=== PATIENT | female | born 1935 | race Caucasian/White ===

== ENCOUNTER 2017-07-06 16:25 | Outpatient (CLI) | payer MEDICARE ==
[2017-07-06 17:05] LABS: Hemoglobin 12.3 g/dL (12.0-16.0); Mean Corpuscular HGB CONC 34.9 g/dL (32.0-36.0); Mean Corpuscular Hemoglobin 34.3 pg (27.0-31.0); Mean Corpuscular Volume 98.3 fl (81.0-99.0); Mean Platelet Volume 7.1 fL (7.4-10.4); Platelet Count 209 thou/uL (130-400); RBC Distribution Width 12.3 % (11.5-14.5); White Blood Cell (WBC) Count 9.1 thou/uL (4.8-10.8)
[2017-07-06 17:18] LABS: INR-International Normal Ratio 1.1; PTT 30.1 SEC (22.9-36.1); Prothrombin Time 14.1 SEC (12.0-14.7)
[2017-07-06 17:32] LABS: ALT (SGPT) 13 U/L (8-55); AST (SGOT) 25 U/L (5-34); Albumin 3.5 g/dL (3.4-4.8); Alkaline Phosphatase 218 U/L (40-150); Anion Gap 13 mmol/L (10-20); BUN (Urea Nitrogen) 33 mg/dL (9.8-20.1); Bilirubin, Total 0.3 mg/dL (0.2-1.2); Calc. Creatinine Clearance 0 mL/min (70-130); Calcium 9.5 mg/dL (7.8-10.44); Carbon Dioxide 26 mmol/L (23-31); Chloride 101 mmol/L (98-107); Estimated GFR-MDRD 36; Globulin 4.9 g/dL (2.4-3.5); Glucose 129 mg/dL (83-110); Potassium 4.2 mmol/L (3.5-5.1); Protein, Total 8.4 g/dL (6.0-8.3); Sodium 136 mmol/L (136-145)
== END 2017-07-06 16:26 | disposition home or self-care (01) ==
LOC: LABBT 16:25
PROVIDERS: ATTEND Internal Medicine Cardiovascular Disease
DX: Z01.812 Encounter for preprocedural laboratory examination (principal); I35.0 Nonrheumatic aortic (valve) stenosis
CPT/HCPCS: 80053; 85027; 85610; 85730

== ENCOUNTER 2017-07-11 06:55 | Observation (INO) | payer MEDICARE ==
[2017-07-11] MEDS ORDERED: Diazepam 5 MG TAB ONE (07:11)
[2017-07-11] MEDS ORDERED: Lidocaine 1% (PF) 30 ML VIAL ONE (08:34)
[2017-07-11] MEDS ORDERED: Fentanyl 100 MCG/2 ML VIAL ONE ×3 (09:30→13:58)
[2017-07-11] MEDS ORDERED: Midazolam HCl 2 mg/2 ml Vial ONE ×3 (09:46→11:17)
[2017-07-11] MEDS ORDERED: Heparin 10,000 UNITS/1 ML VIAL ONE (09:57)
[2017-07-11] MEDS ORDERED: Nitroglycerin 100MG/250ML BOT 250 ML ONE (10:00)
[2017-07-11] MEDS ORDERED: Fentanyl 100 MCG/2 ML VIAL SLOW IVP PRN ×2 (11:30→11:31)
[2017-07-11] MEDS ORDERED: traMADol HCl 50 MG TAB PO PRN (11:32)
[2017-07-11] MEDS ORDERED: Acetaminophen/Codeine 30-300mg Tablet PO PRN (11:33)
[2017-07-11] MEDS ORDERED: PROVENTIL INHALER 6.7 G (200 INHALATIONS) INH PRN (11:34)
[2017-07-11] MEDS ORDERED: Midazolam HCl 2 mg/2 ml Vial IVP PRN (11:39)
[2017-07-11] MEDS ORDERED: TICAGRELOR 90 MG TABLET PO SCH (11:40)
[2017-07-11] MEDS ORDERED: Iopamidol 370 76% 50 ML VIAL FS ONE (13:23)
[2017-07-11] MEDS ORDERED: Iopamidol 370 76% 100 ML VIAL ONE (13:23)
[2017-07-11] MEDS: Sodium Chloride 0.9% 1,000 ML IV SCH (18:10)
[2017-07-11 19:34] VITALS: BMI 31.1
[2017-07-11] MEDS ORDERED: hydrOXYzine 25 MG TAB PO SCH (21:00)
[2017-07-11] MEDS: TICAGRELOR 90 MG TABLET PO SCH (21:14)
[2017-07-11] MEDS: ALPRAZolam 0.25 MG TAB PO SCH (21:14)
[2017-07-12] MEDS: Sodium Chloride 0.9% 1,000 ML IV SCH (06:45)
[2017-07-12 06:59] LABS: #Basophils 0.1 thou/uL (0.0-0.2); #Eosinphils 0.4 thou/uL (0.0-0.7); #Lymphocytes 1.9 thou/uL (1.20-3.40); #Monocytes 0.5 thou/uL (0.11-0.59); #Neutrophils 3.1 thou/uL (1.40-6.50); %Basophils 1.1 % (0.0-1.0); %Eosinophils 6.1 % (0.0-10.0); %Lymphocytes 32.7 % (21.0-51.0); %Monocytes 7.7 % (0.0-10.0); %Neutrophils 52.4 % (42.0-75.0); Hemoglobin 10.5 g/dL (12.0-16.0); Mean Corpuscular HGB CONC 34.1 g/dL (32.0-36.0); Mean Corpuscular Hemoglobin 34.6 pg (27.0-31.0); Mean Platelet Volume 7.2 fL (7.4-10.4); Platelet Count 153 thou/uL (130-400); RBC Distribution Width 12.4 % (11.5-14.5); Red Blood Cell (RBC) Count 3.05 mill/uL (4.20-5.40); White Blood Cell (WBC) Count 5.8 thou/uL (4.8-10.8)
[2017-07-12 07:16] LABS: ALT (SGPT) 36 U/L (8-55); AST (SGOT) 73 U/L (5-34); Albumin 2.7 g/dL (3.4-4.8); Alkaline Phosphatase 256 U/L (40-150); Anion Gap 12 mmol/L (10-20); BUN (Urea Nitrogen) 24 mg/dL (9.8-20.1); Calc. Creatinine Clearance 57 mL/min (70-130); Calcium 8.7 mg/dL (7.8-10.44); Carbon Dioxide 22 mmol/L (23-31); Chloride 107 mmol/L (98-107); Estimated GFR-MDRD 53; Globulin 3.6 g/dL (2.4-3.5); Glucose 106 mg/dL (83-110); Potassium 4.1 mmol/L (3.5-5.1); Protein, Total 6.3 g/dL (6.0-8.3); Sodium 137 mmol/L (136-145)
[2017-07-12] MEDS ORDERED: Spironolactone 25 MG TAB PO SCH (08:00)
[2017-07-12] MEDS ORDERED: Citalopram 20 MG TAB PO SCH (09:00)
[2017-07-12] MEDS ORDERED: Furosemide 100 MG/10 ML VIAL SLOW IVP SCH (09:15)
[2017-07-12] MEDS: ALPRAZolam 0.25 MG TAB PO SCH (09:15)
[2017-07-12] MEDS: TICAGRELOR 90 MG TABLET PO SCH (09:15)
[2017-07-12] MEDS ORDERED: Potassium Chloride 20 MEQ TAB PO SCH (09:15)
[2017-07-12 12:12] VITALS: BP 138/58; TEMP 98.5
--- NOTE | 2017-07-12 13:18 | ULT ---
ULTRASOUND RIGHT GROIN: Indication: Post femoral artery puncture. Assess for pseudoaneurysm. FINDINGS: Common femoral artery and common femoral vein are identified and appear unremarkable. Greater sapheno us vein is identified and appears unremarkable. No evidence of pseudoaneurysm or hematoma. IMPRESSION: Unremarkable exam. POS: [facility]
--- NOTE | 2017-07-12 19:34 | DIS ---
DATE OF ADMISSION: 07/11/2017 DATE OF DISCHARGE: 07/12/2017 OBSERVATION DISCHARGE FINAL DIAGNOSES: 1. Aortic stenosis, severe. 2. Coronary artery disease, widely patent stent in her LAD, severe stenosis in the circumflex succes sfully stented with a drug-coated stent. 3. Severe edema related to aortic stenosis. DISCHARGE MEDICATIONS: Medications at the time of discharge are the same as those on admission with the addition of Brilinta 90 mg twice a day. Please see admission note for full details. Briefly, Ms. Sanchez is a delightful elderly woman who came to the hospital for pre TAVR evaluation. Loren hunt had a stent in her LAD, it is widely patent. The 90% lesion in the circumflex was treated with a 3 .5 x 24 drug-coated stent. The right coronary, no stenosis. The patient was kept overnight in view of her severe aortic stenosis and diastolic heart failure secondary to aortic stenosis with edema. T his morning, she complained of some groin pain. We did an ultrasound of her leg. The groin is aj l. She also has diffuse pain in her knees and throughout her legs chronically. The patient was give n some Lasix here to diurese her before going home. Otherwise, she will resume her medicines same as before. We will arrange to have her sent to [place] for consideration for transcutaneous aortic genaro ve replacement. She has a very high gradient. I think she would be a good candidate.
--- NOTE | 2017-07-12 20:20 | EKG ---
Test Reason : POST STENT X1 LAD Blood Pressure : / mmHG Vent. Rate : 088 BPM Atrial Rate : 088 BPM P-R Int : 162 ms QRS Dur : 142 ms QT Int : 410 ms P-R-T Axes : 068 077 024 degrees QTc Int : 496 ms Normal sinus rhythm Right bundle branch block Abnormal ECG When compared with ECG of 28-OCT-2016 01:03, No significant change was found Confirmed by CHELSEA ARROYO (2) on 07/12/2017 8:19:49 PM Referred By: ROSITA Confirmed By:CHLESEA ARROYO
--- NOTE | 2017-07-12 20:26 | EKG ---
Test Reason : Blood Pressure : / mmHG Vent. Rate : 074 BPM Atrial Rate : 074 BPM P-R Int : 162 ms QRS Dur : 138 ms QT Int : 416 ms P-R-T Axes : 060 024 017 degrees QTc Int : 461 ms Normal sinus rhythm Right bundle branch block Abnormal ECG When compared with ECG of 11-JUL-2017 11:24, (Unconfirmed) No significant change was found Confirmed by CHELSEA ARROYO (2) on 07/12/2017 8:25:53 PM Referred By: ROSITA Confirmed By:CHELSEA ARROYO
== END 2017-07-12 15:28 | disposition home or self-care (01) ==
LOC: CCL 06:55 → 2SW 16:07
PROVIDERS: ADMIT Internal Medicine Cardiovascular Disease; ATTEND Internal Medicine Cardiovascular Disease
DX: I35.0 Nonrheumatic aortic (valve) stenosis (principal); I25.10 Atherosclerotic heart disease of native coronary artery without angina pectoris; E78.00 Pure hypercholesterolemia, unspecified; I50.30 Unspecified diastolic (congestive) heart failure; E03.9 Hypothyroidism, unspecified; E66.9 Obesity, unspecified; Z95.5 Presence of coronary angioplasty implant and graft; Z68.31 Body mass index [BMI] 31.0-31.9, adult; Z79.899 Other long term (current) drug therapy
CPT/HCPCS: 76942; 80053; 85025; 85347 ×3; 93005 ×2; 93454; 93798; 93926; 96361 ×2; 96374; 96375 ×2; 97139; C1769 ×2; C1874; C1887; C9600; G0378; 36415; 92928; 93010; 99152; 99153; J1644; J1940; J2001; J2250; J3010

== ENCOUNTER 2017-08-01 13:23 | Outpatient (CLI) | payer MEDICARE | END 2017-08-01 13:24 | disposition home or self-care (01) | LOC: CP 13:23 | PROVIDERS: ATTEND Internal Medicine Cardiovascular Disease | DX: I25.10 Atherosclerotic heart disease of native coronary artery without angina pectoris (principal); I35.0 Nonrheumatic aortic (valve) stenosis | CPT/HCPCS: 94727 ==

== ENCOUNTER 2017-08-24 13:27 | Outpatient (CLI) | payer MEDICARE | END 2017-08-24 13:28 | disposition home or self-care (01) | LOC: CP 13:27 | PROVIDERS: ATTEND Internal Medicine Cardiovascular Disease | DX: I25.10 Atherosclerotic heart disease of native coronary artery without angina pectoris (principal); I35.0 Nonrheumatic aortic (valve) stenosis | CPT/HCPCS: 94010; 94727; 94729 ==

== ENCOUNTER 2017-10-06 10:09 | Emergency (ER) | payer MEDICARE ==
[2017-10-06 10:56] LABS: #Basophils 0.1 thou/uL (0.0-0.2); #Eosinphils 1.4 thou/uL (0.0-0.7); #Lymphocytes 3.8 thou/uL (1.20-3.40); #Monocytes 0.6 thou/uL (0.11-0.59); #Neutrophils 2.9 thou/uL (1.40-6.50); %Eosinophils 16.1 % (0.0-10.0); %Monocytes 7.3 % (0.0-10.0); %Neutrophils 32.5 % (42.0-75.0); Hemoglobin 10.5 g/dL (12.0-16.0); Mean Corpuscular HGB CONC 33.7 g/dL (32.0-36.0); Mean Corpuscular Hemoglobin 32.6 pg (27.0-31.0); Mean Corpuscular Volume 96.7 fL (78.0-98.0); Mean Platelet Volume 7.2 fL (7.4-10.4); Platelet Count 174 thou/uL (130-400); Red Blood Cell (RBC) Count 3.21 mill/uL (4.20-5.40); White Blood Cell (WBC) Count 8.8 thou/uL (4.8-10.8)
[2017-10-06 11:13] LABS: ALT (SGPT) 11 U/L (8-55); AST (SGOT) 20 U/L (5-34); Albumin 3.4 g/dL (3.4-4.8); Alkaline Phosphatase 197 U/L (40-150); Anion Gap 10 mmol/L (10-20); BUN (Urea Nitrogen) 20 mg/dL (9.8-20.1); Bilirubin, Total 0.2 mg/dL (0.2-1.2); CK (CPK) 76 U/L (29-168); Calc. Creatinine Clearance 0 mL/min (70-130); Calcium 9.4 mg/dL (7.8-10.44); Carbon Dioxide 29 mmol/L (23-31); Chloride 101 mmol/L (98-107); Estimated GFR-MDRD 35; Globulin 4.1 g/dL (2.4-3.5); Glucose 90 mg/dL (83-110); Potassium 3.9 mmol/L (3.5-5.1); Protein, Total 7.5 g/dL (6.0-8.3); Sodium 136 mmol/L (136-145)
[2017-10-06 11:14] LABS: CKMB 2.1 ng/mL (0-6.6); Troponin I 0.031 ng/mL (< 0.028)
--- NOTE | 2017-10-06 11:35 | ULT ---
BILATERAL LOWER EXTREMITY VENOUS DOPPLER ULTRASOUND: Date: 10/06/17 HISTORY: Bilateral lower extremity edema. TECHNIQUE: Russo scale ultrasound with color flow and spectral Doppler imaging of the deep venous systems of the lower extremities was performed bilaterally. FINDINGS: There is good flow, compression, and augmentation noted in the common femoral, femoral, deep femoral, popliteal, posterior tibial, and greater saphenous veins on either side. IMPRESSION: No evidence of deep venous thrombosis in either lower extremity. POS: [facility]
--- NOTE | 2017-10-06 11:42 | RAD ---
CHEST 1 VIEW: Date: 10/06/17 INDICATION: Bilateral leg swelling and shortness of breath. FINDINGS: Low lung volumes. Stable mild cardiomegaly when compared to prior dated 10/28/16. Small hiatal hernia is stable. No acute osseous abnormality is evident. IMPRESSION: No acute cardiopulmonary abnormality. POS: [facility]
[2017-10-06] MEDS ORDERED: Furosemide 20 MG/2 ML VIAL ONE (13:08)
== END 2017-10-06 13:23 | disposition home or self-care (01) ==
LOC: ERS 10:09
DX: I35.0 Nonrheumatic aortic (valve) stenosis (principal); I50.9 Heart failure, unspecified; E03.9 Hypothyroidism, unspecified; E78.5 Hyperlipidemia, unspecified; F32.9 Major depressive disorder, single episode, unspecified; J45.909 Unspecified asthma, uncomplicated; I25.10 Atherosclerotic heart disease of native coronary artery without angina pectoris; Z79.899 Other long term (current) drug therapy
CPT/HCPCS: 71045; 80053; 82550; 82553; 83880; 84484; 85025; 93005; 93970; 96374; J1940

== ENCOUNTER 2018-01-19 02:32 | Emergency (ER) | payer MEDICARE ==
[2018-01-19] MEDS ORDERED: Bacitracin Zinc 1 Packet ONE (03:12)
== END 2018-01-19 04:33 | disposition home or self-care (01) ==
LOC: ERS 02:32
DX: S61.214A Laceration without foreign body of right ring finger without damage to nail, initial encounter (principal); S51.811A Laceration without foreign body of right forearm, initial encounter; I25.10 Atherosclerotic heart disease of native coronary artery without angina pectoris; E03.9 Hypothyroidism, unspecified; E78.5 Hyperlipidemia, unspecified; F32.9 Major depressive disorder, single episode, unspecified; I50.9 Heart failure, unspecified; M19.90 Unspecified osteoarthritis, unspecified site; J45.909 Unspecified asthma, uncomplicated; Z79.899 Other long term (current) drug therapy; Z79.82 Long term (current) use of aspirin; Y33.XXXA Other specified events, undetermined intent, initial encounter

== ENCOUNTER 2018-01-19 10:15 | Inpatient (IN) | payer MEDICARE ==
[2018-01-19 10:49] LABS: Bilirubin Negative (Negative); Blood, Urine Moderate (Negative); Clarity TURBID (Clear); Glucose, Urine (Dipstick) Negative (Negative); Leukocyte Large (Negative); Nitrite Negative (Negative); Protein, Urine (Dipstick) 30 mg/dL (Neg-Trace); Specific Gravity, Urine 1.019 (1.002-1.036); Urobilinogen 0.2 mg/dL (0.2-1.0)
[2018-01-19 10:53] LABS: Bacteria/HPF 3+ HPF (None Seen); Hyaline Casts/LPF 0-3 HYALINE CAST LPF (0-3 Hyaline); Pathc Cast-AUWi Flag 0.29 (0-2.49); Squamous Epithelial None Seen HPF (0-3)
[2018-01-19] MEDS ORDERED: cefTRIAXone\\ROCEPHIN 1 GM VIAL ONE (11:22)
[2018-01-19 11:27] LABS: Mean Corpuscular HGB CONC 32.7 g/dL (32.0-36.0); Mean Corpuscular Hemoglobin 33.4 pg (27.0-31.0); Mean Platelet Volume 8.6 fL (7.4-10.4); Platelet Count 80 thou/uL (130-400); RBC Distribution Width 14.8 % (11.5-14.5); Red Blood Cell (RBC) Count 2.99 mill/uL (4.20-5.40); White Blood Cell (WBC) Count 11.3 thou/uL (4.8-10.8)
[2018-01-19 11:28] LABS: Band 32 % (5-11); Lymphocytes 5 % (21-51); MDiff Complete? YES; Metamyelocyte 6 % (0-0); Monocytes 3 % (0-10); Neutrophil 53 % (42-75); Platelet Morphology Comment Appears Decreased; Polychromasia SLIGHT = 2-3 cells (100X) (0-2/hpf); Vacuoles SLIGHT
[2018-01-19 11:37] LABS: ALT (SGPT) 17 U/L (8-55); AST (SGOT) 29 U/L (5-34); Albumin 3.3 g/dL (3.4-4.8); Alkaline Phosphatase 94 U/L (40-150); Anion Gap 18 mmol/L (10-20); BUN (Urea Nitrogen) 60 mg/dL (9.8-20.1); Bilirubin, Total 0.5 mg/dL (0.2-1.2); Calc. Creatinine Clearance 0 mL/min (70-130); Calcium 8.7 mg/dL (7.8-10.44); Carbon Dioxide 16 mmol/L (23-31); Chloride 106 mmol/L (98-107); Estimated GFR-MDRD 17; Globulin 3.8 g/dL (2.4-3.5); Glucose 172 mg/dL (83-110); Potassium 4.1 mmol/L (3.5-5.1); Protein, Total 7.1 g/dL (6.0-8.3); Sodium 136 mmol/L (136-145)
[2018-01-19 11:43] LABS: Troponin I 0.376 ng/mL (< 0.028)
--- NOTE | 2018-01-19 12:16 | RAD ---
PORTABLE CHEST 1 VIEW: DATE: 01/19/2018. TIME: 11:00 a.m. HISTORY: Fall, weakness, fever. FINDINGS: Comparison is made with the exam of 10/06/2017. The heart size is borderline. The aorta is tortuous. Small hiatal hernia is again seen. No focal a reas of consolidation, pneumothoraces, or pleural effusions are identified. There are degenerative c hanges in the left shoulder joint. There is a suggestion of a dislocation of the right shoulder join t. Dedicated right shoulder radiographs should be obtained. Discussed over the telephone with the ER physician, Dr. Julio Cesar Patel, osvaldo 11:10 a.m. CODE CR POS: [facility]
--- NOTE | 2018-01-19 12:42 | RAD ---
RIGHT SHOULDER 3 VIEWS: HISTORY: Shoulder pain. FINDINGS: There is anterior shoulder dislocation. Degenerative changes of the humeral head. Sclerosis and deg enerative change at the glenoid. No definite fracture identified. IMPRESSION: Right shoulder dislocation. POS: [facility]
[2018-01-19] MEDS ORDERED: Fentanyl 100 MCG/2 ML VIAL ONE (12:54)
[2018-01-19 13:35] LABS: Troponin I 0.545 ng/mL (< 0.028)
[2018-01-19] MEDS ORDERED: VANC AND ABX IVPB PRN ×2 (14:04→15:22)
[2018-01-19] MEDS ORDERED: Bisacodyl 10 MG SUPP PR PRN (14:05)
[2018-01-19] MEDS ORDERED: Ondansetron ODT 4 MG TAB PO PRN (14:05)
[2018-01-19] MEDS ORDERED: Ondansetron PF 4 MG/2 ML Vial IVP PRN (14:05)
[2018-01-19] MEDS ORDERED: Nitroglycerin 0.4 MG TAB (25 Tab Bottle) PO PRN (14:05)
[2018-01-19] MEDS ORDERED: Clopidogrel Bisulfate 75 MG TAB PO SCH (14:15)
[2018-01-19] MEDS ORDERED: Vancomycin HCl 1 GM in Premix Bag 1 BAG IVPB SCH ×2 (14:15→15:15)
[2018-01-19] MEDS ORDERED: Labetalol HCl 100 MG/20 ML VIAL SLOW IVP PRN (14:22)
--- NOTE | 2018-01-19 14:43 | HP ---
DATE OF ADMISSION: 01/20/2108 PRIMARY CARE PHYSICIAN: Dr. Chandler. PRIMARY TEAM OTR TRUCK DRIVER: Dr. Russell. CHIEF COMPLAINT: Fever. HISTORY OF PRESENT ILLNESS: The patient is an 82-year-old female with coronary artery disease, statu s post stent placement, recent TAVR, hypertension, and dementia was brought into the emergency room w ith fever. She was seen earlier this morning in the emergency room for a skin tear. History was obt ained from the daughter at the bedside who is the DPOA. According to the daughter, the patient had a temperature of 102.2 along with blood pressure of 92/46. She appeared generally weak with mild confusion. She also complained of generalized body aches. T here was no cough, shortness of breath, wheezing, nausea, vomiting, diarrhea, dysuria, hematuria or u rgency reported. She has chronic bilateral lower extremity edema which has unchanged. She had UTI 2 months ago. In the emergency room, her initial vital signs showed temperature of 102.8 with respiration of 27, pu lse rate of 88, blood pressure of 101/54 with O2 saturation 98% on room air. Her workup was consiste nt with urinary tract infection. She received vancomycin and ceftriaxone, aspirin with IV fluids in the emergency room. PAST MEDICAL HISTORY: 1. Coronary artery disease, status post stent placement to LAD and circumflex. 2. Diabetes mellitus type 2. 3. Mild intermittent asthma. 4. Moderate to severe aortic stenosis with recent TAVR in [place]. 5. Hypothyroidism. 6. Macular degeneration. 7. Diverticulosis. 8. History of cervical cancer. 9. Degenerative joint disease. 10. Chronic venous stasis in lower extremity. 11. Hyperlipidemia. 12. History of C. difficile colitis as well as UTI. PAST SURGICAL HISTORY: 1. Recent TAVR in [place]. 2. Cholecystectomy. 3. Tonsillectomy. 4. Hysterectomy. 5. Appendectomy. 6. Right total hip replacement. 7. Cardiac catheterization with stent placement. ALLERGIES: No known drug allergies. CURRENT HOME MEDICATIONS: Procardia-XL 30 mg daily, aspirin 81 mg daily, Celexa 20 mg daily, Plavix 75 mg daily, ferrous sulfate 325 mg 3 times a day, Lasix 80 mg twice a day, levothyroxine 150 mcg radha ly, lisinopril 10 mg daily, magnesium oxide 400 mg daily, metoprolol succinate 25 mg b.i.d., pravasta tin 40 mg daily, Requip 0.25 mg 3 times a day. SOCIAL HISTORY: The patient currently lives at home with her . She has [facility]. She has intermittent confusion even at home. She ambulates with the help of a walker. No smoki ng, alcohol or drug use. She is a do not resuscitate, which was verified with the family at the [facility]. FAMILY HISTORY: Negative for inheritable diseases per previous records. REVIEW OF SYSTEMS: The following complete review of systems was negative, unless otherwise mentioned in the HPI or below: Constitutional: Weight loss or gain, ability to conduct usual activities. Sk in: Rash, itching. Eyes: Double vision, pain. ENT/Mouth: Nose bleeding, neck stiffness, pain, tenderness. Cardiovascular: Palpitations, dyspnea on exertion, orthopnea. Respiratory: Shortness of breath, wheezing, cough, hemoptysis, fever or night sweats. Gastrointestinal: Poor appetite, abdominal pain, heartburn, nausea, vomiting, constipation, or diarr hea. Genitourinary: Urgency, frequency, dysuria, nocturia. Musculoskeletal: Pain, swelling. Neurologic/Psychiatric: Anxiety, depression. Allergy/Immunologic: Skin rash, bleeding tendency. PHYSICAL EXAMINATION: VITAL SIGNS: As discussed above. GENERAL: An 82-year-old female, ill appearing. HEENT: Head is atraumatic, normocephalic. Sclerae are anicteric. Moist mucous membranes. No oral lesion. NECK: Supple, no JVD appreciated. No carotid bruit. LUNGS: Showed diminished air entry at bilateral bases with scattered rhonchi. No significant rales or wheezing appreciated. No accessory muscle use. HEART: S1, S2 present. There is 2/6 systolic murmur over the mitral area. No heaves or pulsation. ABDOMEN: Soft, nontender, bowel sounds present, no rebound or guarding. EXTREMITIES: Bilateral lower extremity edema up to 3+ with chronic venous stasis changes. No calf t enderness. SKIN: Warm and dry. LYMPH NODES: No palpable lymph nodes in the neck. PERIPHERAL VASCULAR: Radial pulses palpable bilaterally. MUSCULOSKELETAL: No joint swelling or tenderness. NEUROLOGIC: Grossly nonfocal, moves all four extremities. PSYCHIATRY: The patient is alert, awake, and follows command appropriately. LABORATORY FINDINGS: WBC 11.3 with hemoglobin 10, hematocrit 30.6, platelets of 80. Chemistry showed sodium 136, potassium 4.1, chloride 106, bicarbonate 16, BUN 60. Creatinine 2.69. Lactic acid 3.5. Troponin 0.376. Repeat troponin 0.545, BUN 60, creatinine 2.69. BNP 778. Albumi n 3.3. Urinalysis showed greater than 50 WBCs with 3+ bacteria, 32% bandemia. Chest x-ray by my review was negative for infiltrate. Right shoulder x-ray showed anterior dislocati on. EKG by my review showed nonspecific ST-T wave changes in the inferior lead. IMPRESSION: 1. Sepsis with acute organ dysfunction secondary to urinary tract infection. 2. Elevated troponins secondary to demand ischemia/type 2 myocardial infarction. 3. Acute kidney injury on chronic kidney disease stage 3. 4. Metabolic acidosis/lactic acidosis. 5. Right shoulder dislocation suspected to be chronic. 6. Coronary artery disease, status post stent placement on aspirin and Plavix. 7. Aortic stenosis with recent transcatheter aortic valve replacement . 8. Macular degeneration. 9. Diet controlled diabetes mellitus type 2. 10. Mild intermittent asthma. 11. Hypothyroidism. 12. Diverticulosis. 13. Hyperlipidemia. 14. Degenerative joint disease. 15. History of cervical cancer. 16. Chronic anemia. Macrocytic. Vitamin B12 and folic acid have been in normal range in the past. 17. Thrombocytopenia, probably secondary to sepsis. 18. Mild protein calorie malnutrition. 19. Skin tear with bleeding. The patient was seen in the emergency room earlier today. PLAN: The patient will be monitored on the telemetry unit. Serial troponins will be obtained. The patient has significant bandemia. We will continue vancomycin. We will start her on cefepime. The patient is allergic to PENICILLIN. Gentle intravenous hydration. Echocardiogram will be obtained. We will consult Cardiology as well as Orthopedic. Do not resuscitate confirmed. We will get renal u ltrasound. We will also add postvoid residual. Plan of care was discussed with the patient and the family in detail. They stated understanding.
[2018-01-19 15:44] LABS: Lactic Acid 4.4 mmol/L (0.5-2.2)
[2018-01-19] MEDS ORDERED: Cefepime 0.5 GM in Admixture Fee 1 EACH IVPB SCH (16:00)
[2018-01-19] MEDS ORDERED: Cefepime 1 GM in Sodium Chloride 0.9% 100 ML IVPB SCH (16:00)
[2018-01-19 16:55] LABS: Troponin I 0.899 ng/mL (< 0.028)
--- NOTE | 2018-01-19 18:12 | CON ---
DATE OF CONSULTATION: 01/19/2018 REASON FOR CONSULTATION: Non-STEMI. PRIMARY SPEED RUNNER: Sari Russell M.D. HISTORY OF PRESENT ILLNESS: Mrs. Sanchez is a very pleasant 82-year-old white female who comes to the ospital for a fever. She was found to have a temperature of 102.2 and borderline low blood pressure, generalized weakness and confusion. Body aches consistent with fever. She was brought in for this and admitted for possible sepsis. Troponins were checked and are elevated, so Cardiology is being co nsulted for this. She denies any chest pain, tightness or pressure. Her breathing is at baseline, a lthough she is a little confused. PAST MEDICAL HISTORY: 1. Coronary artery disease, status post drug-eluting stent to the left circumflex in June of this [facility] r. 2. Severe aortic stenosis, status post TAVR in [place] recently. 3. Type 2 diabetes. 4. Asthma. 5. Hypothyroidism. 6. Macular degeneration. 7. Diverticulosis. 8. Cervical cancer in the past. 9. Degenerative joint disease. 10. Chronic venous stasis of lower extremities. 11. Hyperlipidemia. 12. Clostridium difficile colitis as well as recurrent UTIs in the past. PAST SURGICAL HISTORY: 1. TAVR in [place] recently. 2. Stent to the left circumflex recently. 3. Cholecystectomy. 4. Tonsillectomy. 5. Hysterectomy. 6. Appendectomy. 7. Right total hip replacement. 8. Cardiac catheterization, stenting as well. ALLERGIES: No known drug allergies. OUTPATIENT MEDICATIONS: Include, 1. Procardia-XL 30 mg a day. 2. Aspirin 81 a day. 3. Celexa 20 mg a day. 4. Plavix 75 mg a day. 5. Ferrous sulfate 325 three times a day. 6. Lasix 80 mg b.i.d. 7. Levothyroxine 150 mcg a day. 8. Lisinopril 10 mg a day. 9. Mag oxide. 10. Metoprolol succinate 25 mg b.i.d. 11. Pravastatin 40 mg a day. 12. Requip. SOCIAL HISTORY: No alcohol, tobacco or drugs. FAMILY HISTORY: Noncontributory. REVIEW OF SYSTEMS: Unobtainable as the patient is somewhat confused. PHYSICAL EXAMINATION: VITAL SIGNS: Temperature 102.2, respiration rate 18, satting 98% on room air. GENERAL: Awake, slightly somnolent, but easily arousable, oriented to person and place, in no distre ss. HEENT: Normocephalic, atraumatic. NECK: Supple. LUNGS: Clear. CARDIOVASCULAR: S1, S2, no S3, S4. There is a grade 2/6 systolic murmur at the right upper sternal border. ABDOMEN: Soft, positive bowel sounds. EXTREMITIES: No edema. SKIN: Warm and dry. LABORATORY WORK: Reviewed. White count of 11.3, hemoglobin of 10, hematocrit of 30, platelet count of 80. Chemistries were reviewed. Creatinine of 2.69 with a BUN of 60. This is much higher than he r baseline of 1. Troponin was initially 0.5, then 0.8, then 0.3. BNP of 778, albumin of 3.3. Corti iveth is 57. UA, dark yellow, turbid, 30 proteins, moderate blood, large leukocyte esterase, greater t samuel 50 white cells, 3+ bacteria. EKG was reviewed. ASSESSMENT AND PLAN: 1. Non-ST elevation myocardial infarction: Most likely type 2 demand ischemia from her sepsis. 2. Coronary artery disease, status post left circumflex stent less than a year ago. Continue Plavix . 3. Severe aortic stenosis, status post TAVR earlier this year. PLAN: 1. We will do an echocardiogram to make sure there is no seeding of whatever infectious process is g oing on the valves. 2. Most likely, her elevated troponin is from demand ischemia. I do not recommend a full anticoagul ation at this time as this is not an acute coronary syndrome. 3. Continue outpatient regimen except for holding blood pressure medications due to relative low blo od pressure. Thank you for letting us participate in the care of your patient. We will follow.
[2018-01-19] MEDS: rOPINIRole HCl 0.25 MG TAB PO SCH ×2 (18:29→22:37)
[2018-01-19] MEDS: Dextrose 5 % And 0.9 % NaCl 1,000 ML IV SCH ×2 (18:29→19:35)
[2018-01-19] MEDS: Cefepime 0.5 GM, Admixture Fee 1 EACH in Sodium Chloride 0.9% 100 ML IVPB SCH (19:36)
[2018-01-19] MEDS ORDERED: Vancomycin HCl 750 MG in Sodium Chloride 0.9% 250 ML 250 ML IVPB SCH (22:15)
[2018-01-19] MEDS: Nystatin Powder 15 GM BOT TOP SCH (22:28)
[2018-01-19] MEDS: Metoprolol Tartrate 25 MG TAB PO SCH (22:36)
[2018-01-19] MEDS: Saccharomyces boulardii 250 MG CAP PO SCH (22:37)
[2018-01-19] MEDS: Atorvastatin Calcium 10 MG TAB PO SCH (22:37)
[2018-01-19] MEDS: Senokot S 8.6-50 MG TAB PO SCH (22:37)
[2018-01-19] MEDS ORDERED: Sodium Chloride 0.9% 1,000 ML IV SCH (23:30)
[2018-01-20] MEDS ORDERED: Sodium Chloride 0.9% 1,000 ML IV SCH (01:30)
[2018-01-20] MEDS: Sodium Chloride 0.9% 1,000 ML IV SCH ×3 (01:31→15:14)
[2018-01-20 03:28] LABS: Lactic Acid 1.9 mmol/L (0.5-2.2)
[2018-01-20] MEDS: Levothyroxine 150 MCG TAB PO SCH (06:17)
[2018-01-20 07:06] LABS: ALT (SGPT) 28 U/L (8-55); AST (SGOT) 57 U/L (5-34); Albumin 2.6 g/dL (3.4-4.8); Alkaline Phosphatase 78 U/L (40-150); Anion Gap 13 mmol/L (10-20); BUN (Urea Nitrogen) 61 mg/dL (9.8-20.1); Bilirubin, Total 0.3 mg/dL (0.2-1.2); Calc. Creatinine Clearance 23 mL/min (70-130); Calcium 8.3 mg/dL (7.8-10.44); Carbon Dioxide 17 mmol/L (23-31); Chloride 112 mmol/L (98-107); Estimated GFR-MDRD 22; Globulin 3.5 g/dL (2.4-3.5); Glucose 114 mg/dL (83-110); Potassium 4.2 mmol/L (3.5-5.1); Protein, Total 6.1 g/dL (6.0-8.3); Sodium 138 mmol/L (136-145)
[2018-01-20 07:25] LABS: Band 36 % (5-11); Hemoglobin 9.5 g/dL (12.0-16.0); Lymphocytes 15 % (21-51); MDiff Complete? YES; Mean Corpuscular HGB CONC 31.8 g/dL (32.0-36.0); Mean Corpuscular Hemoglobin 33.2 pg (27.0-31.0); Mean Platelet Volume 9.5 fL (7.4-10.4); Metamyelocyte 5 % (0-0); Monocytes 1 % (0-10); Neutrophil 43 % (42-75); Platelet Count 48 thou/uL (130-400); Platelet Morphology Comment Appears Decreased; Red Blood Cell (RBC) Count 2.87 mill/uL (4.20-5.40); White Blood Cell (WBC) Count 14.8 thou/uL (4.8-10.8)
[2018-01-20 07:26] LABS: Lactic Acid 1.8 mmol/L (0.5-2.2)
--- NOTE | 2018-01-20 09:15 | ULT ---
BILATERAL RENAL ULTRASOUND COMPLETE: HISTORY: An 82-year-old female with a history of sepsis and urinary tract infection with concern for obstructi ve uropathy. COMPARISON: 01/13/2008. FINDINGS: The right kidney measures 9 x 5.2 x 4.0 cm. The left kidney measures 8.5 x 4.2 x 4.0 cm. No signifi cant renal hydronephrosis. No perinephric process. The bladder appears unremarkable. The liver pravin ears to be at least borderline to minimally enlarged but was not specifically addressed on this exam. IMPRESSION: Unremarkable bilateral renal ultrasound. No significant renal hydronephrosis. POS: [facility]
[2018-01-20] MEDS: Cyanocobalamin (Vitamin B-12) 1,000 MCG TAB PO SCH (09:31)
[2018-01-20] MEDS: Clopidogrel Bisulfate 75 MG TAB PO SCH (09:31)
[2018-01-20] MEDS: Magnesium Oxide 400 MG TAB PO SCH (09:31)
[2018-01-20] MEDS: Senokot S 8.6-50 MG TAB PO SCH ×2 (09:32→21:32)
[2018-01-20] MEDS: Famotidine 20 MG TAB PO SCH (09:32)
[2018-01-20] MEDS: Multivit, Therapeutic 1 TAB PO SCH (09:32)
[2018-01-20] MEDS: Saccharomyces boulardii 250 MG CAP PO SCH ×2 (09:32→21:31)
[2018-01-20] MEDS: Metoprolol Tartrate 25 MG TAB PO SCH ×2 (09:33→21:30)
[2018-01-20] MEDS: Nystatin Powder 15 GM BOT TOP SCH ×2 (09:33→21:31)
[2018-01-20] MEDS: Folic Acid 1 MG TAB PO SCH (09:33)
[2018-01-20] MEDS: rOPINIRole HCl 0.25 MG TAB PO SCH ×3 (09:34→21:31)
[2018-01-20] MEDS: Citalopram 20 MG TAB PO SCH (09:51)
--- NOTE | 2018-01-20 10:18 | CON ---
DATE OF CONSULTATION: 01/20/2018 REQUESTING PHYSICIAN: Marko Weldon MD CONSULTING PHYSICIAN: Jj Bernal MD REASON FOR CONSULTATION: Right shoulder dislocation. HISTORY OF PRESENT ILLNESS: This is an 82-year-old female with multiple comorbidities. She was admi tted to the hospital and found to be septic with a UTI as well as elevated troponins. Upon workup in the emergency department, a right anterior shoulder dislocation was visualized on a chest x-ray. Fu rther dedicated shoulder x-rays revealed an anterior dislocation. We have been consulted for this re ason. Currently, at bedside, the patient states that she has shoulder pain that comes and goes in th e right shoulder. She also reports that she has left shoulder pain. She does not remember any fall or trauma. She does not remember hearing a pop in her right shoulder. She denies a history of previ ous shoulder dislocations. She states that she does not recall anyone reducing her arm in the emerge ncy department. She is right hand dominant. She denies any numbness or tingling in her right hand. PAST MEDICAL HISTORY: Significant for coronary artery disease, status post stent, diabetes mellitus type 2, asthma, aortic stenosis, hypothyroidism, macular degeneration, diverticulosis, cervical cance r, hyperlipidemia, history of Clostridium difficile colitis, and UTI. PAST SURGICAL HISTORY: Recent TAVR in [place], cholecystectomy, tonsillectomy, hysterectomy, appende ctomy, right total hip replacement, cardiac catheterization with stent placement. ALLERGIES: No known drug allergies. SOCIAL HISTORY: The patient lives at home with her . She ambulates at home with a walker. D enies any smoking, alcohol, or drug use. FAMILY HISTORY: Reviewed and noncontributory. REVIEW OF SYSTEMS: Ten-point review of systems conducted and otherwise negative except for as stated above. PHYSICAL EXAMINATION: VITAL SIGNS: Temperature of 99.1, pulse of 101, respiratory rate of 20, blood pressure 115/54. GENERAL: The patient is awake and alert. She is ill appearing. Her is at bedside. She is cooperative with exam today. HEENT: Head is normocephalic and atraumatic. NECK: Supple. Trachea midline. LUNGS: Breathing nonlabored. EXTREMITIES: The right upper extremity was evaluated. Visualization of the right shoulder appears t o be symmetrical with the left side. The patient experiences pain with any passive motion of the arm by physical exam. Distal neurovascular status is intact. She is visualized actively moving her arm to scratch her face without any discomfort. The left upper extremity was also visualized with activ e range of motion. RADIOGRAPHIC FINDINGS: Reviewed including a chest x-ray and shoulder x-rays from yesterday 8, show evidence of an anterior right shoulder dislocation. ASSESSMENT: Right shoulder dislocation, anterior. PLAN: The patient examined at the bedside with Dr. Bernal. We are unsure whether this is a chronic right shoulder dislocation. On physical exam, the patient seems to be able to use her arm. There ar e no records of a reduction performed, however, the patient does utilize her arm. We will obtain new x-rays of her right shoulder to assess for a dislocation and see if this is still present. We will follow up with these and formulate a plan at that time.
--- NOTE | 2018-01-20 11:24 | RAD ---
RIGHT SHOULDER 2 VIEWS: History Possible dislocation. COMPARISON: None. FINDINGS: There is anterior subluxation of the right shoulder which is limited without an axillary view. There is abnormal appearance of the inferior margin of the glenoid. IMPRESSION: Subluxation of the glenohumeral joint with abnormal lucency of inferior margin of the glenoid. An ax illary view is recommended. POS: [facility]
--- NOTE | 2018-01-20 14:41 | PDOC.PN ---
- Subjective Encounter Start Date: 01/20/18 Encounter Start Time: 09:00 Patient seen and examined for Sepsis. Intermittent confusion. No new complaints. No overnight events - Objective Resuscitation Status: Resuscitation Status DNR:Do Not Resuscitate MAR Reviewed: Yes Vital Signs & Weight: Vital Signs (12 hours) Temp Pulse Resp BP Pulse Ox 01/20/18 12:21 99.6 F 97 21 H 102/51 L 93 L 01/20/18 08:24 99.7 F H 94 18 112/55 L 96 01/20/18 04:00 99.1 F 101 H 20 115/54 L 94 L Weight Admit Weight 162 lb Weight 162 lb 8 oz Result Diagrams: 01/20/18 06:27 01/20/18 06:27 Radiology Reviewed by me: Yes (CXR - No infiltrate) EKG Reviewed by me: Yes (Tele SR) Phys Exam - Physical Examination Constitutional: NAD HEENT: PERRLA Neck: no JVD Respiratory: no wheezing, no rhonchi No rales/rhonchi Cardiovascular: RRR, no rub no heaves/pulsations Gastrointestinal: soft, non-tender, no distention, positive bowel sounds Musculoskeletal: no edema Neurological: non-focal, normal sensation, moves all 4 limbs Psychiatric: normal affect Deviation from normal: Alert/Awake Dx/Plan - Plan DVT proph w/SCDs IMPRESSION: 1. Sepsis with acute organ dysfunction secondary to urinary tract infection with bacterimia 2. Elevated troponins secondary to demand ischemia/type 2 myocardial infarction. 3. Acute kidney injury on chronic kidney disease stage 3. improving 4. Metabolic acidosis/lactic acidosis. 5. Right shoulder dislocation suspected to be chronic. 6. Coronary artery disease, status post stent placement on aspirin and Plavix. 7. Aortic stenosis with recent transcatheter aortic valve replacement . 8. Macular degeneration. 9. Diet controlled diabetes mellitus type 2. 10. Mild intermittent asthma. 11. Hypothyroidism. 12. Diverticulosis. 13. Hyperlipidemia. 14. Degenerative joint disease. 15. History of cervical cancer. 16. Chronic anemia. Macrocytic. 17. Thrombocytopenia, probably secondary to sepsis. 18. Mild protein calorie malnutrition. 19. Skin tear with bleeding. PLAN: Cont Cefepime Add Vancomycin Cont gentle hydration Cont ASA/Plavix No Heparin/Lovenox due to thrombocytopenia Cont current meds as below Await culture Microbiology 01/19/18 10:20 Nasal swab Influenza Types A,B Direct EIA - Final 01/19/18 Unknown Venous blood - Left Arm Blood Culture - Preliminary Staphylococcus aureus 01/19/18 10:55 Venous blood - Pending Blood Culture - Preliminary Staphylococcus aureus 01/19/18 10:30 Urine clean catch Urine Culture - Preliminary Gram Negative Rupesh Review of Systems - Review of Systems Respiratory: negative: Cough, Dry, Shortness of Breath, Hemoptysis, SOB with Excertion, Pleuritic Pain, Sputum, Wheezing Cardiovascular: negative: chest pain, palpitations, orthopnea, paroxysmal nocturnal dyspnea, edema, light headedness, other - Medications/Allergies Allergies/Adverse Reactions: Allergies Allergy/AdvReac Type Severity Reaction Status Date / Time Penicillins Allergy Verified 01/19/18 20:43 Medications: Current Medications Aspirin (Aspirin Chewable) 81 mg PO DAILY [facility] Last Admin: 01/20/18 09:30 Dose: 81 mg Atorvastatin Calcium (Lipitor) 10 mg PO HS [facility] Last Admin: 01/19/18 22:37 Dose: 10 mg Bisacodyl (Dulcolax) 10 mg PA DAILYPRN PRN PRN Reason: Constipation Citalopram Hydrobromide (Celexa) 20 mg PO DAILY [facility] Last Admin: 01/20/18 09:51 Dose: 20 mg Clopidogrel Bisulfate (Plavix) 75 mg PO DAILY [facility] Last Admin: 01/20/18 09:31 Dose: 75 mg Cyanocobalamin (Vitamin B-12) 1,000 mcg PO DAILY [facility] Last Admin: 01/20/18 09:31 Dose: 1,000 mcg Famotidine (Pepcid) 20 mg PO DAILY [facility] Last Admin: 01/20/18 09:32 Dose: 20 mg Folic Acid (Folvite) 1 mg PO DAILY [facility] Last Admin: 01/20/18 09:33 Dose: 1 mg Cefepime HCl 0.5 gm/Miscellaneous Medication 1 each/ Sodium Chloride 100 mls @ 200 mls/hr IVPB 1600 [facility] Last Admin: 01/19/18 19:36 Dose: 100 mls Sodium Chloride (Normal Saline 0.9%) 1,000 mls @ 100 mls/hr IV .Q10H [facility] Last Admin: 01/20/18 12:22 Dose: 1,000 mls Labetalol HCl (Normodyne) 10 mg SLOW IVP Q4H PRN PRN Reason: Systolic BP > 180 Levothyroxine Sodium (Synthroid) 150 mcg PO 0600 [facility] Last Admin: 01/20/18 06:17 Dose: 150 mcg Magnesium Oxide (Magnesium Oxide) 400 mg PO DAILY [facility] Last Admin: 01/20/18 09:31 Dose: 400 mg Metoprolol Tartrate (Lopressor) 12.5 mg PO BID [facility] Last Admin: 01/20/18 09:33 Dose: 12.5 mg Miscellaneous Medication (Pharmacy To Dose) 1 each IVPB DAILYPRN PRN PRN Reason: LABS Multivitamins (Theragran) 1 tab PO DAILY [facility] Last Admin: 01/20/18 09:32 Dose: 1 tab Nitroglycerin (Nitrostat) 0.4 mg PO Q5MIN PRN PRN Reason: Chest Pain Nystatin (Mycostatin Powder) 0 gm TOP BID [facility] Last Admin: 01/20/18 09:33 Dose: 1 applic Ondansetron HCl (Zofran Odt) 4 mg PO Q6H PRN PRN Reason: Nausea/Vomiting Ondansetron HCl (Zofran) 4 mg IVP Q6H PRN PRN Reason: Nausea/Vomiting Ropinirole HCl (Requip) 0.25 mg PO TID [facility] Last Admin: 01/20/18 09:34 Dose: 0.25 mg Saccharomyces Boulardii (Florastor) 250 mg PO BID [facility] Last Admin: 01/20/18 09:32 Dose: 250 mg Senna/Docusate Sodium (Senokot S) 1 tab PO BID [facility] Last Admin: 01/20/18 09:32 Dose: 1 tab Sodium Chloride (Flush - Normal Saline) 10 ml IVF PRN PRN PRN Reason: Saline Flush Sodium Chloride (Flush - Normal Saline) 10 ml IVF PRN PRN PRN Reason: Saline Flush
[2018-01-20] MEDS ORDERED: Dextrose 50% Abboject 50 ML SYRINGE SLOW IVP PRN (14:56)
[2018-01-20] MEDS ORDERED: Dextrose 5% in Water 1,000 ML IV PRN (14:56)
[2018-01-20] MEDS: Acetaminophen 325 MG TAB PO PRN (15:14)
[2018-01-20] MEDS: Cefepime 0.5 GM, Admixture Fee 1 EACH in Sodium Chloride 0.9% 100 ML IVPB SCH (15:15)
[2018-01-20 15:59] LABS: Troponin I 1.051 ng/mL (< 0.028)
[2018-01-20] MEDS ORDERED: CEFAZOLIN/Water 2 GM/20 ML SYRINGE SLOW IVP SCH (16:15)
--- NOTE | 2018-01-20 18:22 | PDOC.CTH ---
<Angela Henriquez - Last Filed: 01/20/18 20:45> Cardiology Progress Note - Subjective The pt seen and examined. No overnight events. The pt cannot follow commands at this moment due to confusion. Severe generalized edema. - Objective Vital Signs Temp Pulse Pulse Pulse Resp BP BP 01/20/18 17:08 99.9 F H 88 22 H 01/20/18 13:20 95 99 108/54 L 110/58 L 01/20/18 12:21 99.6 F 97 21 H 01/20/18 08:24 99.7 F H 94 18 BP Pulse Ox 01/20/18 17:08 111/54 L 94 L 01/20/18 13:20 01/20/18 12:21 102/51 L 93 L 01/20/18 08:24 112/55 L 96 Admit Weight 162 lb Weight 162 lb 8 oz 01/19/18 01/20/18 01/21/18 06:59 06:59 06:59 Intake Total 1585 Balance 1585 - Physical Examination Lungs: other: (coarses and diminished at bases) Heart: RRR (SR ) Abdomen: soft Extremities: other: (generalized edema) - Telemetry Telemetry Rhythm: SR - Labs Result Diagrams: 01/20/18 06:27 01/20/18 06:27 Troponin/CKMB Troponin I 1.051 ng/mL (< 0.028) H* 01/20/18 15:17 - Assessment/Plan 1. Elevated Trop - Sepsis with acute organ dysfunction secondary to urinary tract infection with bacterimia - Elevated this afternoon. No good candidate for any cardiac workup due to multiple medical problems. No good candidate for cath due to anemia and elevated Cr level. 2. Sepsis 2/2 UTI - Elevated troponins secondary to demand ischemia/type 2 myocardial infarction. - on IV ABX; managed by PCP 3. CAD with stent in Lt Cx in 06/2017 - On Plavix and ASA 81mg qd, which may be held if her platelet level becomes < 20,000. Cont. CBC check 4. MARIO on CKD stage 3 - slightly improving. 5. hx of severe with TAVR in 09/2017 - stable 6. Hyperlipidemia 7. Hypothyroidism 8. Thrombocytopenia - Platelet level today was 40,000 which was 80,000. 9. Hx of Hypotension - Hypotension last night after the pt received PM BP med. Decrease metoprolol 25mg from 1 tab to 1/2tab BID MAR reviewed Review of Systems - Review of Systems Constitutional: reports: see HPI EENTM: reports: see HPI Respiratory: reports: see HPI Cardiac (ROS): reports: see HPI ABD/GI: reports: see HPI : reports: see HPI Musculoskeletal: reports: see HPI <Jean Pierre Williamson Ricky - Last Filed: 01/21/18 10:20> Cardiology Progress Note - Objective Vital Signs Temp Pulse Resp BP Pulse Ox 01/21/18 07:45 98.9 F 90 22 H 153/70 H 96 01/21/18 04:00 99.5 F 90 16 137/89 97 01/21/18 03:00 94 L 01/21/18 00:00 98.9 F 87 18 142/66 H 94 L Admit Weight 162 lb Weight 162 lb 8 oz 01/20/18 01/21/18 01/22/18 06:59 06:59 06:59 Intake Total 1585 Balance 1585 - Labs Result Diagrams: 01/21/18 07:07 01/21/18 05:05 Troponin/CKMB Troponin I 0.837 ng/mL (< 0.028) H* 01/21/18 05:05 - Assessment/Plan pt. seen and evaluated by me. I agree with the A/P by the DREDGE PUMPER.Chest clear. RRR. Mild edema. Hurts everywhere.
--- NOTE | 2018-01-20 18:52 | CON ---
DATE OF CONSULTATION: 01/20/2018 REASON FOR CONSULTATION: Bacteremia. HISTORY OF PRESENT ILLNESS: An 82-year-old patient who has a history of coronary artery disease, aor tic stenosis with recent TAVR and cervical cancer in remission after treatment as well as a right hip replacement with prior infection in 2014, who lives at [facility] across from the [facility] with her and was found by her daughter with fever and general malaise the day before admi ssion. Apparently, she has had some noticeable change in her skin of the upper extremities, distal a spect with a few skin tears in the recent past and at the time of the admission, she had a temperatur e of 102.2. The patient was complaining of generalized body aches. She denied any headaches, no vis ual symptoms. No sore throat or odynophagia, no dysphagia. She has chronic shoulder problems from r otator cuff disease and did not notice any changes in that symptom. She did complain of lower back p ain, which was more intense than usual and was bothering her quite a bit. She also had pain in the l ower extremities and pain in the abdominal area. Initial temperature 102.8 with breathing rate of 27 , blood pressure 101/54, O2 sat 98%. PAST MEDICAL HISTORY: Coronary artery disease, stent placement, recent TAVR, asthma, hypothyroidism, macular degeneration, diverticulosis, cervical cancer in remission, venous stasis infection, right h ip arthroplasty site with MRSA and gram negatives treated with resolution in 2014. PAST SURGICAL HISTORY: Also includes a cholecystectomy, hysterectomy, appendectomy. ALLERGIES: None. CURRENT MEDICATIONS: Includes Tylenol, aspirin, Lipitor, Dulcolax, cefepime, citalopram, Plavix, vit puga D, Pepcid, Folvite, glucagon, Normodyne, Synthroid, Lopressor, and ropinirole, Senokot. SOCIAL HISTORY: Lives at [facility] with , never smoker. She has a DO NOT RESUS CITATE order. FAMILY HISTORY: Noncontributory. PHYSICAL EXAMINATION: VITAL SIGNS: Temperature max 100.1, blood pressure 100/49, pulse 95, respirations 24, O2 sat 94%. SKIN: Shows area of abrasion of the skin of the dorsal aspect of the fourth digit proximal phalanx s kin. She has areas of bruising elsewhere and various segments of her upper extremity distal aspect. There is evidence of stasis dermatitis in the lower extremity, right more than left, question of romain lulitis, although that is less likely. A few excoriation herron in her abdomen. There is vaginal hyp eremia involving the vulvar area bilaterally in a very symmetric distribution, probably due to moistu re and possible Marisela overgrowth. Some intertriginous maceration under the breasts and she has a l ittle heel ulceration in the lateral aspect of the right side. No lymphadenopathy. HEENT: Ocular movements conjugate. Pupils are reactive. Oral cavity with upper dentures. No lesio ns. NECK: Supple, no jugular vein distention or carotid bruits. LUNGS: With symmetric clear breath sounds. HEART: S1, S2, regular rate. No S3, S4. ABDOMEN: Soft, not distended. There is tenderness on palpation of this heart what appears to be a f oreign body in the subcutaneous tissue, unclear if this is mesh or pump. According to the daughter's recollection, it is mesh for management of herniation. She has marked limitation of range of motion of the upper extremities, everything hurts when I try to move her upper extremities. She has quite a bit of tenderness in the lower extremities as well. I could not palpate her lower back because of her level of pain which hindered movements in the bed. NEUROLOGIC: She is awake. She appears in distress from this pain. She has difficulty with recollec tion of events. LABORATORY: WBC count 11.3 and now 14.8. Hemoglobin is down to 9.5, platelets are down from 80,000- 48,000. The bands are up from 32%-36%, metamyelocytes 6%. Sodium 138, creatinine 2.16 with a tropon in 1.051. BNP 778, albumin 2.6. Urinalysis with greater than 50 wbc's. Microbiology with Staphyloc occus aureus retrieved from two sets of blood cultures which appears to be methicillin-sensitive Stap hylococcus aureus. There is a gram-negative vannesa in the urine sample submitted, pending identificatio n. Imaging studies include a shoulder x-ray with subluxation of the glenohumeral joint. There is a renal ultrasound with unremarkable findings. There is a chest x-ray done on admission which showed borderline heart size, hiatal hernia, no areas of consolidation noted. ASSESSMENT: 1. Coronary artery disease. 2. Aortic stenosis with recent TAVR done in [place] in September. 3. Fever, general malaise and myalgias and polyarthralgias. 4. Abdominal tenderness. 5. Mild neutrophilia with a left shift and bandemia. 6. Methicillin-sensitive Staphylococcus aureus bacteremia 2/2 sets. 7. Thrombocytopenia. DISCUSSION: The likely sequence of events includes the penetration of the Staph aureus through the s kin areas of abrasion/laceration into the blood stream and then likely colonization of a different si shane. She may have multiple areas of bone and joint colonization. The areas of concern would include the left knee arthroplasty site of the right shoulder. The right first MPJ joint and the area in th e abdomen that is quite tender and appears to contain a foreign body which according to the daughter represent mesh from prior interventions. A TAVR infection is of primary concern in this case and the valve may have to be assessed with a ANDREA depending on clinical progress. Last echocardiogram is 2016. At this point, we will treat her with cephalosporin with cefazolin and discontinue cefepime. We will need long-term treatment. Those areas of potential involvement may have to be addressed in the next few days depending on clinical progress. The other site of concern is the lower back which has displayed increasing pain lately and may represent an area of diskitis and osteomyelitis of the lumbosacral spine area. So we have a number of sites that might be involved by this bacteria, which is quite frail and will have to wait to image those areas depending on clinical progress.
[2018-01-20 19:40] LABS: Vancomycin, Random 19.3 ug/mL (See Comment)
[2018-01-20] MEDS: CEFAZOLIN 2 GM/50 ML BAG IVPB SCH (21:30)
[2018-01-20] MEDS: Atorvastatin Calcium 10 MG TAB PO SCH (21:30)
[2018-01-20] MEDS ORDERED: Vancomycin HCl 500 MG in Sodium Chloride 0.9% 100 ML IVPB SCH (22:00)
[2018-01-21 06:02] LABS: Anion Gap 12 mmol/L (10-20); BUN (Urea Nitrogen) 49 mg/dL (9.8-20.1); Calc. Creatinine Clearance 35 mL/min (70-130); Calcium 8.3 mg/dL (7.8-10.44); Carbon Dioxide 16 mmol/L (23-31); Chloride 114 mmol/L (98-107); Estimated GFR-MDRD 34; Glucose 122 mg/dL (83-110); Potassium 3.5 mmol/L (3.5-5.1); Sodium 138 mmol/L (136-145)
[2018-01-21] MEDS: Levothyroxine 150 MCG TAB PO SCH (06:11)
[2018-01-21] MEDS: Sodium Chloride 0.9% 1,000 ML IV SCH ×2 (06:11→09:06)
[2018-01-21 06:13] LABS: Critical Call Chem Troponin I RESULT DECREASING; Troponin I 0.837 ng/mL (< 0.028)
[2018-01-21 08:05] LABS: Band 23 % (5-11); Hemoglobin 9.5 g/dL (12.0-16.0); Lymphocytes 11 % (21-51); MDiff Complete? YES; Mean Corpuscular Hemoglobin 33.7 pg (27.0-31.0); Mean Platelet Volume 9.6 fL (7.4-10.4); Metamyelocyte 2 % (0-0); Monocytes 1 % (0-10); Neutrophil 63 % (42-75); Platelet Count 43 thou/uL (130-400); Platelet Morphology Comment Appears Decreased; RBC Distribution Width 15.2 % (11.5-14.5); Red Blood Cell (RBC) Count 2.81 mill/uL (4.20-5.40); White Blood Cell (WBC) Count 13.7 thou/uL (4.8-10.8)
[2018-01-21] MEDS: Isosorbide Dinitrate 5 MG TAB PO SCH ×2 (08:59→21:48)
[2018-01-21] MEDS: Clopidogrel Bisulfate 75 MG TAB PO SCH (09:00)
[2018-01-21] MEDS: Famotidine 20 MG TAB PO SCH (09:00)
[2018-01-21] MEDS: Saccharomyces boulardii 250 MG CAP PO SCH ×2 (09:00→21:48)
[2018-01-21] MEDS: Senokot S 8.6-50 MG TAB PO SCH ×2 (09:00→21:48)
[2018-01-21] MEDS: rOPINIRole HCl 0.25 MG TAB PO SCH ×3 (09:00→21:48)
[2018-01-21] MEDS: Metoprolol Tartrate 25 MG TAB PO SCH ×2 (09:01→21:48)
[2018-01-21] MEDS: Folic Acid 1 MG TAB PO SCH (09:04)
[2018-01-21] MEDS: Citalopram 20 MG TAB PO SCH (09:04)
[2018-01-21] MEDS: Magnesium Oxide 400 MG TAB PO SCH (09:04)
[2018-01-21] MEDS: Multivit, Therapeutic 1 TAB PO SCH (09:04)
[2018-01-21] MEDS: Cyanocobalamin (Vitamin B-12) 1,000 MCG TAB PO SCH (09:05)
[2018-01-21] MEDS: Nystatin Powder 15 GM BOT TOP SCH ×2 (09:05→21:49)
--- NOTE | 2018-01-21 10:22 | PDOC.CTH ---
Cardiology Progress Note - Subjective No new events. No appetite. positional chest pain. Still hurts all over. - Objective Vital Signs Temp Pulse Resp BP Pulse Ox 01/21/18 07:45 98.9 F 90 22 H 153/70 H 96 01/21/18 04:00 99.5 F 90 16 137/89 97 01/21/18 03:00 94 L 01/21/18 00:00 98.9 F 87 18 142/66 H 94 L Admit Weight 162 lb Weight 162 lb 8 oz 01/20/18 01/21/18 01/22/18 06:59 06:59 06:59 Intake Total 1585 Balance 1585 - Physical Examination General/Neuro: alert & oriented x3 Neck: no JVD present Lungs: CTA Heart: RRR - Telemetry Telemetry Rhythm: RRR. - Labs Result Diagrams: 01/21/18 07:07 01/21/18 05:05 Troponin/CKMB Troponin I 0.837 ng/mL (< 0.028) H* 01/21/18 05:05 - Assessment/Plan 1. Elevated Trop - Sepsis with acute organ dysfunction secondary to urinary tract infection with bacterimia - Elevated this afternoon. No good candidate for any cardiac workup due to multiple medical problems. No good candidate for cath due to anemia and elevated Cr level. 2. Sepsis 2/2 UTI - Elevated troponins secondary to demand ischemia/type 2 myocardial infarction. - on IV ABX; managed by PCP 3. CAD with stent in Lt Cx in 06/2017 - On Plavix and ASA 81mg qd, which may be held if her platelet level becomes < 20,000. Cont. CBC check 4. MARIO on CKD stage 3 - slightly improving. 5. hx of severe with TAVR in 09/2017 - stable 6. Hyperlipidemia 7. Hypothyroidism 8. Thrombocytopenia - Platelet level today was 40,000 which was 80,000. 9. Hx of Hypotension - Hypotension last night after the pt received PM BP med. Decrease metoprolol 25mg from 1 tab to 1/2tab BID APR reviewed
[2018-01-21] MEDS: CEFAZOLIN 2 GM/50 ML BAG IVPB SCH ×2 (10:34→21:48)
--- NOTE | 2018-01-21 12:52 | PDOC.PN ---
- Subjective Encounter Start Date: 01/21/18 Encounter Start Time: 09:00 Patient seen and examined for Sepsis. Feels gen weak. Had intermittent CP earlier. No new complaints. No overnight events - Objective Resuscitation Status: Resuscitation Status DNR:Do Not Resuscitate MAR Reviewed: Yes Vital Signs & Weight: Vital Signs (12 hours) Temp Pulse Resp BP Pulse Ox 01/21/18 12:25 98.2 F 83 19 147/67 H 97 01/21/18 07:45 98.9 F 90 22 H 153/70 H 96 01/21/18 04:00 99.5 F 90 16 137/89 97 01/21/18 03:00 94 L Weight Admit Weight 162 lb Weight 162 lb 8 oz I&O: 01/20/18 01/21/18 01/22/18 06:59 06:59 06:59 Intake Total 1585 Balance 1585 Result Diagrams: 01/21/18 07:07 01/21/18 05:05 Additional Labs: Accuchecks 01/21/18 01/21/18 01/20/18 10:49 05:53 17:24 POC Glucose 163 H 135 H 179 H EKG Reviewed by me: Yes (Tele SR) Phys Exam - Physical Examination Constitutional: NAD Respiratory: no wheezing, no rhonchi Dec AE at bases Cardiovascular: RRR, no rub Gastrointestinal: soft, non-tender, positive bowel sounds Neurological: moves all 4 limbs Dx/Plan - Plan DVT proph w/SCDs IMPRESSION: 1. Sepsis with acute organ dysfunction secondary to urinary tract infection with bacteremia 2. Elevated troponins secondary to demand ischemia/type 2 myocardial infarction. 3. Acute kidney injury on chronic kidney disease stage 3. improving 4. Metabolic acidosis/lactic acidosis. 5. Right shoulder dislocation ? chronic. 6. Coronary artery disease, status post stent placement on aspirin and Plavix. 7. Aortic stenosis with recent transcatheter aortic valve replacement . 8. Macular degeneration. 9. Diet controlled diabetes mellitus type 2. 10. Mild intermittent asthma. 11. Hypothyroidism. 12. Diverticulosis. 13. Hyperlipidemia. 14. Degenerative joint disease. 15. History of cervical cancer. 16. Chronic anemia. Macrocytic. 17. Thrombocytopenia, probably secondary to sepsis. 18. Mild protein calorie malnutrition. 19. Skin tear with bleeding. PLAN: Cont Ancef Metoprolol dose reduced due to low BP Cont IVF Cont ASA/Plavix - hold if Platelets <20k No Heparin/Lovenox due to thrombocytopenia Add low dose Nitrate for CP Cont other meds as below Microbiology 01/19/18 Unknown Venous blood - Left Arm Blood Culture - Final Staphylococcus aureus 01/19/18 10:55 Venous blood - Pending Blood Culture - Final Staphylococcus aureus 01/19/18 10:30 Urine clean catch Urine Culture - Preliminary Gram Negative Rupesh Review of Systems - Review of Systems Respiratory: negative: Cough, Dry, Shortness of Breath, Hemoptysis, SOB with Excertion, Pleuritic Pain, Sputum, Wheezing Cardiovascular: negative: chest pain, palpitations, orthopnea, paroxysmal nocturnal dyspnea, edema, light headedness, other - Medications/Allergies Allergies/Adverse Reactions: Allergies Allergy/AdvReac Type Severity Reaction Status Date / Time Penicillins Allergy Verified 01/19/18 20:43 Medications: Current Medications Acetaminophen (Tylenol) 650 mg PO Q4H PRN PRN Reason: Headache/Fever or Mild Pain Last Admin: 01/20/18 15:14 Dose: 650 mg Aspirin (Aspirin Chewable) 81 mg PO DAILY [facility] Last Admin: 01/21/18 09:04 Dose: 81 mg Atorvastatin Calcium (Lipitor) 10 mg PO HS [facility] Last Admin: 01/20/18 21:30 Dose: 10 mg Bisacodyl (Dulcolax) 10 mg ND DAILYPRN PRN PRN Reason: Constipation Cefazolin Sodium/Dextrose (Ancef 2 Gm/50 Ml) 2 gm IVPB Q12HR [facility] Last Admin: 01/21/18 10:34 Dose: 2 gm Citalopram Hydrobromide (Celexa) 20 mg PO DAILY [facility] Last Admin: 01/21/18 09:04 Dose: 20 mg Clopidogrel Bisulfate (Plavix) 75 mg PO DAILY [facility] Last Admin: 01/21/18 09:00 Dose: 75 mg Cyanocobalamin (Vitamin B-12) 1,000 mcg PO DAILY [facility] Last Admin: 01/21/18 09:05 Dose: 1,000 mcg Dextrose/Water (Dextrose 50%) 25 gm SLOW IVP PRN PRN PRN Reason: Hypoglycemia Famotidine (Pepcid) 20 mg PO DAILY [facility] Last Admin: 01/21/18 09:00 Dose: 20 mg Folic Acid (Folvite) 1 mg PO DAILY [facility] Last Admin: 01/21/18 09:04 Dose: 1 mg Glucagon (Glucagon) 1 mg IM PRN PRN PRN Reason: Hypoglycemia Dextrose/Water (D5w) 1,000 mls @ 0 mls/hr IV .Q0M PRN PRN Reason: Hypoglycemia Sodium Chloride (Normal Saline 0.9%) 1,000 mls @ 50 mls/hr IV .Q20H [facility] Last Admin: 01/21/18 09:06 Dose: 1,000 mls Isosorbide Dinitrate (Isordil) 5 mg PO BID [facility] Last Admin: 01/21/18 08:59 Dose: 5 mg Labetalol HCl (Normodyne) 10 mg SLOW IVP Q4H PRN PRN Reason: Systolic BP > 180 Levothyroxine Sodium (Synthroid) 150 mcg PO 0600 [facility] Last Admin: 01/21/18 06:11 Dose: 150 mcg Magnesium Oxide (Magnesium Oxide) 400 mg PO DAILY [facility] Last Admin: 01/21/18 09:04 Dose: 400 mg Metoprolol Tartrate (Lopressor) 6.25 mg PO BID [facility] Last Admin: 01/21/18 09:01 Dose: 6.25 mg Miscellaneous Medication (Pharmacy To Dose) 1 each IVPB DAILYPRN PRN PRN Reason: LABS Multivitamins (Theragran) 1 tab PO DAILY [facility] Last Admin: 01/21/18 09:04 Dose: 1 tab Nitroglycerin (Nitrostat) 0.4 mg PO Q5MIN PRN PRN Reason: Chest Pain Nystatin (Mycostatin Powder) 0 gm TOP BID [facility] Last Admin: 01/21/18 09:05 Dose: 1 applic Ondansetron HCl (Zofran Odt) 4 mg PO Q6H PRN PRN Reason: Nausea/Vomiting Ondansetron HCl (Zofran) 4 mg IVP Q6H PRN PRN Reason: Nausea/Vomiting Ropinirole HCl (Requip) 0.25 mg PO TID [facility] Last Admin: 01/21/18 09:00 Dose: 0.25 mg Saccharomyces Boulardii (Florastor) 250 mg PO BID [facility] Last Admin: 01/21/18 09:00 Dose: 250 mg Senna/Docusate Sodium (Senokot S) 1 tab PO BID [facility] Last Admin: 01/21/18 09:00 Dose: 1 tab Sodium Chloride (Flush - Normal Saline) 10 ml IVF PRN PRN PRN Reason: Saline Flush Sodium Chloride (Flush - Normal Saline) 10 ml IVF PRN PRN PRN Reason: Saline Flush
--- NOTE | 2018-01-21 14:42 | ADD-CON ---
ADDENDUM: DATE OF CONSULTATION: 01/20/2018 Three views of the right shoulder were ordered and obtained. These show evidence of an anterior righ t shoulder dislocation. Upon review of old records, it appears the patient's shoulder has been chron ically dislocated including chest x-rays from 10/06/2017, 10/28/2016 and 07/07/2016, all show a right anterior shoulder dislocation. The patient may use her right upper extremity as tolerated. Physical therapy may work with her. She can [facility] for long-term evaluat ion when she is discharged from the hospital if her right shoulder continues to bother her.
[2018-01-21] MEDS: Acetaminophen 325 MG TAB PO PRN ×2 (15:19→23:34)
--- NOTE | 2018-01-21 18:38 | PRG ---
DATE OF CONSULTATION: 01/21/2018 SUBJECTIVE: The patient is a little bit better than before. She is more alert, still having pain in multiple sites as noted. No respiratory symptoms. No abdominal pain. She is voiding in the diaper . PHYSICAL EXAMINATION: VITAL SIGNS: T-max 99.9, currently 98.7. Other vital signs not remarkable. GENERAL: Keeps her eyes closed during the exam. She is very tender in multiple sites, particularly left shoulder and today, the right hip was very tender to range of motion. Slightest movement of the right knee elicited severe pain in the right hip. She has some tenderness on palpation of the mid s ternal area in the lower aspect. LUNGS: Clear. HEART: S1, S2, regular rate. ABDOMEN: Not distended or tender. LABORATORY DATA: White cell count 13.7, hemoglobin 9.5, platelets 43,000 with 22% bands. Sodium 136 , creatinine 1.46 which is improved from admission. Urinalysis greater than 50 wbc's. We have gram- negative vannesa in urine, but Staph aureus in the blood. Two sets of blood cultures. Echocardiogram re port EF 65%, enlargement of right ventricle. No other findings that were significant. ASSESSMENT: Coronary artery disease, aortic stenosis with recent TAVR done in [place], fever with St aphylococcus aureus, methicillin sensitive bacteremia, severe right hip pain and other appendicular s tructure pain. DISCUSSION: The main concern here now seems to be a right hip infection. She has an arthroplasty in that site and we will consult Orthopedic Surgery to evaluate that joint. She may have other joints involved as well, but this seems to be the most problematic one at this point in time. The other iss ue would be the heart valve and she might need a ANDREA to evaluate that down the road. In view of her state, an alternate approach would be conservative management but the hip joint if it is involved, wo uld require washout and even potential removal of the hip joint.
[2018-01-21] MEDS: Atorvastatin Calcium 10 MG TAB PO SCH (21:48)
[2018-01-21 22:36] LABS: Vancomycin, Random 18.3 ug/mL (See Comment)
[2018-01-21] MEDS ORDERED: Vancomycin HCl 500 MG in Sodium Chloride 0.9% 100 ML IVPB SCH (23:45)
[2018-01-22] MEDS ORDERED: Adenosine 6 MG/2 ML VIAL ONE (05:34)
[2018-01-22] MEDS: Sodium Chloride 0.9% 1,000 ML IV SCH ×2 (05:47→11:00)
[2018-01-22] MEDS: Levothyroxine 150 MCG TAB PO SCH (05:54)
[2018-01-22] MEDS ORDERED: Diltiazem 125 MG in Sodium Chloride 0.9% 100 ML IVPB SCH (06:15)
[2018-01-22] MEDS ORDERED: Amiodarone 200 MG TAB PO SCH ×2 (09:45→15:00)
[2018-01-22] MEDS: CEFAZOLIN 2 GM/50 ML BAG IVPB SCH (09:50)
[2018-01-22] MEDS: Isosorbide Dinitrate 5 MG TAB PO SCH ×2 (09:52→21:31)
[2018-01-22] MEDS: Metoprolol Tartrate 25 MG TAB PO SCH ×2 (09:53→21:31)
[2018-01-22] MEDS: Clopidogrel Bisulfate 75 MG TAB PO SCH (09:54)
[2018-01-22] MEDS: Magnesium Oxide 400 MG TAB PO SCH (09:54)
[2018-01-22] MEDS: Citalopram 20 MG TAB PO SCH (09:56)
[2018-01-22] MEDS: rOPINIRole HCl 0.25 MG TAB PO SCH ×3 (09:56→22:15)
[2018-01-22] MEDS: Cyanocobalamin (Vitamin B-12) 1,000 MCG TAB PO SCH (09:56)
[2018-01-22] MEDS: Famotidine 20 MG TAB PO SCH (09:57)
[2018-01-22] MEDS: Multivit, Therapeutic 1 TAB PO SCH (09:57)
[2018-01-22] MEDS: Nystatin Powder 15 GM BOT TOP SCH ×2 (09:57→21:48)
[2018-01-22] MEDS: Folic Acid 1 MG TAB PO SCH (09:57)
[2018-01-22] MEDS: Saccharomyces boulardii 250 MG CAP PO SCH ×2 (09:57→21:31)
[2018-01-22] MEDS: Senokot S 8.6-50 MG TAB PO SCH ×2 (09:58→21:33)
--- NOTE | 2018-01-22 10:02 | PRG ---
DATE OF SERVICE: 01/22/2018 SUBJECTIVE: Ms. Sanchez does not look well today. She has gone into atrial fibrillation with a rapid v entricular response. She is having some trouble breathing. She looks uncomfortable. PHYSICAL EXAMINATION: VITAL SIGNS: Her blood pressure is 133/83, pulse is 150-160, it is irregular despite intravenous dil tiazem. LUNGS: Some expiratory wheezing. CARDIAC: Tachycardic and irregular. She is having some chest pain. ABDOMEN: Soft, nontender. EXTREMITIES: Moderate edema and looks like she has some cellulitis as well. LABORATORY DATA: Troponin 0.837. Most recent WBC was 13.7. ASSESSMENT: 1. Atrial fibrillation with a rapid rate. 2. Previous transcutaneous aortic valve replacement. 3. Coronary artery disease with previous percutaneous coronary intervention. PLAN: 1. Increase diltiazem. 2. If heart rate does not come down, the patient will likely need to go to the Intensive Care Unit f or intravenous amiodarone.
[2018-01-22] MEDS ORDERED: Amiodarone In Dextrose 200 ML IVPB SCH (10:30)
[2018-01-22 10:37] LABS: Anion Gap 13 mmol/L (10-20); BUN (Urea Nitrogen) 31 mg/dL (9.8-20.1); Calc. Creatinine Clearance 49 mL/min (70-130); Calcium 8.9 mg/dL (7.8-10.44); Carbon Dioxide 15 mmol/L (23-31); Chloride 114 mmol/L (98-107); Estimated GFR-MDRD 51; Glucose 112 mg/dL (83-110); Potassium 3.2 mmol/L (3.5-5.1); Sodium 139 mmol/L (136-145)
[2018-01-22 10:55] LABS: Band 18 % (5-11); Hemoglobin 10.2 g/dL (12.0-16.0); Lymphocytes 10 % (21-51); MDiff Complete? YES; Mean Corpuscular HGB CONC 31.7 g/dL (32.0-36.0); Mean Corpuscular Hemoglobin 32.9 pg (27.0-31.0); Mean Platelet Volume 10.2 fL (7.4-10.4); Monocytes 8 % (0-10); Neutrophil 64 % (42-75); Platelet Count 51 thou/uL (130-400); Platelet Morphology Comment Appears Decreased; Polychromasia SLIGHT = 2-3 cells (100X) (0-2/hpf); RBC Distribution Width 14.7 % (11.5-14.5); White Blood Cell (WBC) Count 13.9 thou/uL (4.8-10.8)
[2018-01-22] MEDS: Amiodarone 450 MG, Admixture Fee 1 EACH in Dextrose 5% in Water 250 ML IVPB SCH (10:59)
[2018-01-22 11:12] LABS: ALT (SGPT) Less than 7 U/L (8-55); AST (SGOT) 28 U/L (5-34); Albumin 2.6 g/dL (3.4-4.8); Alkaline Phosphatase 191 U/L (40-150); Bilirubin, Direct 0.2 mg/dL (0.1-0.3); Bilirubin, Total 0.6 mg/dL (0.2-1.2); Protein, Total 6.5 g/dL (6.0-8.3)
[2018-01-22] MEDS ORDERED: Insulin Regular 300 UNITS/3 ML VIAL SC PRN ×2 (12:55)
[2018-01-22] MEDS ORDERED: Meropenem 1 GM in Sodium Chloride 0.9% 100 ML IVPB SCH (16:00)
[2018-01-22] MEDS: MEROPENEM 1 GM/50 ML 1 GM in Premix Bag 1 BAG IVPB SCH (16:26)
--- NOTE | 2018-01-22 18:42 | PDOC.PN ---
- Subjective Encounter Start Date: 01/22/18 Encounter Start Time: 12:00 Patient seen and examined for Sepsis. Developed Afib with RVR. Feels fen weak. No other complaints. No overnight events - Objective Resuscitation Status: Resuscitation Status DNR:Do Not Resuscitate MAR Reviewed: Yes Vital Signs & Weight: Vital Signs (12 hours) Temp Pulse Pulse Resp BP BP BP 01/22/18 16:00 98.7 F 01/22/18 15:00 98.7 F 01/22/18 13:49 01/22/18 13:15 01/22/18 13:04 98.8 F 01/22/18 11:24 100.4 F H 148 H 16 133/67 01/22/18 10:04 153 H 162/88 H 01/22/18 09:36 147 H 166/71 H 01/22/18 08:00 99.5 F 164 H 16 133/83 01/22/18 06:54 Pulse Ox 01/22/18 16:00 01/22/18 15:00 01/22/18 13:49 100 01/22/18 13:15 100 01/22/18 13:04 01/22/18 11:24 95 01/22/18 10:04 01/22/18 09:36 01/22/18 08:00 97 01/22/18 06:54 94 L Weight Admit Weight 2.84 oz Weight 162 lb 8 oz Most Recent Monitor Data Heart Rate from ECG 71 NIBP 160/96 NIBP BP-Mean 117 Respiration from ECG 24 SpO2 100 I&O: 01/21/18 01/22/18 01/23/18 06:59 06:59 06:59 Intake Total 1585 1190 1372 Output Total 150 Balance 1585 1190 1222 Result Diagrams: 01/22/18 09:45 01/22/18 09:45 Additional Labs: Accuchecks 01/22/18 01/22/18 01/21/18 16:09 05:46 20:44 POC Glucose 140 H 120 H 110 01/21/18 17:25 POC Glucose 144 H EKG Reviewed by me: Yes (Tele SR) Phys Exam - Physical Examination Constitutional: NAD Respiratory: no wheezing, no rhonchi Cardiovascular: RRR, no rub Gastrointestinal: soft, non-tender, positive bowel sounds Musculoskeletal: no edema Neurological: moves all 4 limbs Dx/Plan - Plan DVT proph w/SCDs 1. Sepsis with acute organ dysfunction secondary to Ecoli UTI with Staph bacteremia 2. Elevated troponins secondary to demand ischemia/type 2 myocardial infarction with Afib with RVR 3. Acute kidney injury on chronic kidney disease stage 3. improving 4. Metabolic acidosis/lactic acidosis. 5. Right shoulder dislocation ? chronic. 6. Coronary artery disease, status post stent placement on aspirin and Plavix. 7. Aortic stenosis with recent transcatheter aortic valve replacement . 8. Macular degeneration. 9. Diet controlled diabetes mellitus type 2. 10. Mild intermittent asthma. 11. Hypothyroidism. 12. Diverticulosis. 13. Hyperlipidemia. 14. Degenerative joint disease. 15. History of cervical cancer. 16. Chronic anemia. Macrocytic. 17. Thrombocytopenia, probably secondary to sepsis. 18. Mild protein calorie malnutrition. 19. Skin tear with bleeding. PLAN: Resume Ancef after 3 days (Meropenem for 3 days for Ecoli UTI per ID) On Amiodarone drip Cont other meds as below Cont ASA/Plavix - hold if Platelets <20k No Heparin/Lovenox due to thrombocytopenia Consult Palliative care Review of Systems - Review of Systems Cardiovascular: negative: chest pain, palpitations, orthopnea, paroxysmal nocturnal dyspnea, edema, light headedness, other Gastrointestinal: negative: Nausea, Vomiting, Abdominal Pain, Diarrhea, Constipation, Melena, Hematochezia, Other - Medications/Allergies Allergies/Adverse Reactions: Allergies Allergy/AdvReac Type Severity Reaction Status Date / Time Penicillins Allergy Verified 01/19/18 20:43 Medications: Current Medications Acetaminophen (Tylenol) 650 mg PO Q4H PRN PRN Reason: Headache/Fever or Mild Pain Last Admin: 01/21/18 23:34 Dose: 650 mg Aspirin (Aspirin Chewable) 81 mg PO DAILY [facility] Last Admin: 01/22/18 09:53 Dose: 81 mg Atorvastatin Calcium (Lipitor) 10 mg PO HS [facility] Last Admin: 01/21/18 21:48 Dose: 10 mg Bisacodyl (Dulcolax) 10 mg [place] DAILYPRN PRN PRN Reason: Constipation Cefazolin Sodium/Dextrose (Ancef 2 Gm/50 Ml) 2 gm IVPB Q12HR [facility] Citalopram Hydrobromide (Celexa) 20 mg PO DAILY [facility] Last Admin: 01/22/18 09:56 Dose: 20 mg Clopidogrel Bisulfate (Plavix) 75 mg PO DAILY [facility] Last Admin: 01/22/18 09:54 Dose: 75 mg Cyanocobalamin (Vitamin B-12) 1,000 mcg PO DAILY [facility] Last Admin: 01/22/18 09:56 Dose: 1,000 mcg Dextrose/Water (Dextrose 50%) 25 gm SLOW IVP PRN PRN PRN Reason: Hypoglycemia Famotidine (Pepcid) 20 mg PO DAILY [facility] Last Admin: 01/22/18 09:57 Dose: 20 mg Folic Acid (Folvite) 1 mg PO DAILY [facility] Last Admin: 01/22/18 09:57 Dose: 1 mg Glucagon (Glucagon) 1 mg IM PRN PRN PRN Reason: Hypoglycemia Dextrose/Water (D5w) 1,000 mls @ 0 mls/hr IV .Q0M PRN PRN Reason: Hypoglycemia Sodium Chloride (Normal Saline 0.9%) 1,000 mls @ 50 mls/hr IV .Q20H [facility] Last Admin: 01/22/18 11:00 Dose: 1,000 mls Amiodarone HCl 450 mg/Miscellaneous Medication 1 each/ Dextrose/Water 259 mls @ 0 mls/hr IVPB INF [facility]; Protocol Last Admin: 01/22/18 10:59 Dose: 259 mls Meropenem 1 gm/ Device 50 mls @ 100 mls/hr IVPB 0000,0800,1600 [facility] Stop: 01/25/18 16:01 Last Admin: 01/22/18 16:26 Dose: 50 mls Insulin Human Regular (Humulin R) 0 units SC .MILD SLIDING SCALE PRN PRN Reason: Mild Correctional Scale Insulin Human Regular (Humulin R) 0 units SC .BEDTIME SLIDING SC PRN PRN Reason: Bedtime Correctional Scale Isosorbide Dinitrate (Isordil) 5 mg PO BID [facility] Last Admin: 01/22/18 09:52 Dose: 5 mg Labetalol HCl (Normodyne) 10 mg SLOW IVP Q4H PRN PRN Reason: Systolic BP > 180 Levothyroxine Sodium (Synthroid) 150 mcg PO 0600 [facility] Last Admin: 01/22/18 05:54 Dose: 150 mcg Magnesium Oxide (Magnesium Oxide) 400 mg PO DAILY [facility] Last Admin: 01/22/18 09:54 Dose: 400 mg Metoprolol Tartrate (Lopressor) 6.25 mg PO BID [facility] Last Admin: 01/22/18 09:53 Dose: 6.25 mg Miscellaneous Medication (Pharmacy To Dose) 1 each IVPB DAILYPRN PRN PRN Reason: LABS Multivitamins (Theragran) 1 tab PO DAILY [facility] Last Admin: 01/22/18 09:57 Dose: 1 tab Nitroglycerin (Nitrostat) 0.4 mg PO Q5MIN PRN PRN Reason: Chest Pain Nystatin (Mycostatin Powder) 0 gm TOP BID [facility] Last Admin: 01/22/18 09:57 Dose: 1 applic Ondansetron HCl (Zofran Odt) 4 mg PO Q6H PRN PRN Reason: Nausea/Vomiting Ondansetron HCl (Zofran) 4 mg IVP Q6H PRN PRN Reason: Nausea/Vomiting Potassium Chloride (Klor-Con) 20 meq PO NOW [facility] Stop: 01/22/18 20:00 Last Admin: 01/22/18 18:10 Dose: 20 meq Ropinirole HCl (Requip) 0.25 mg PO TID [facility] Last Admin: 01/22/18 16:26 Dose: 0.25 mg Saccharomyces Boulardii (Florastor) 250 mg PO BID [facility] Last Admin: 01/22/18 09:57 Dose: 250 mg Senna/Docusate Sodium (Senokot S) 1 tab PO BID [facility] Last Admin: 01/22/18 09:58 Dose: Not Given Sodium Chloride (Flush - Normal Saline) 10 ml IVF PRN PRN PRN Reason: Saline Flush Sodium Chloride (Flush - Normal Saline) 10 ml IVF PRN PRN PRN Reason: Saline Flush
--- NOTE | 2018-01-22 19:17 | EKG ---
Test Reason : Blood Pressure : / mmHG Vent. Rate : 158 BPM Atrial Rate : 153 BPM P-R Int : 000 ms QRS Dur : 126 ms QT Int : 306 ms P-R-T Axes : 000 107 -28 degrees QTc Int : 496 ms Atrial fibrillation with rapid ventricular response Right bundle branch block Abnormal ECG When compared with ECG of 06-OCT-2017 10:25, Atrial fibrillation has replaced Sinus rhythm Vent. rate has increased BY 86 BPM QRS axis Shifted right T wave inversion now evident in Inferior leads T wave inversion no longer evident in Anterior leads Nonspecific T wave abnormality now evident in Lateral leads Confirmed by MARISOL HORTA, DR. Blancas (4) on 01/22/2018 7:17:04 PM Referred By: GUILLERMINA Confirmed By:DR. Yonny DAMON MD
[2018-01-22] MEDS: Atorvastatin Calcium 10 MG TAB PO SCH (21:31)
[2018-01-22] MEDS: Acetaminophen 325 MG TAB PO PRN (22:15)
[2018-01-23] MEDS: MEROPENEM 1 GM/50 ML 1 GM in Premix Bag 1 BAG IVPB SCH ×4 (00:31→23:55)
[2018-01-23] MEDS ORDERED: Vancomycin HCl 500 MG in Sodium Chloride 0.9% 100 ML IVPB SCH (02:00)
[2018-01-23] MEDS: Acetaminophen 325 MG TAB PO PRN (04:07)
[2018-01-23 05:06] LABS: #Eosinphils 0.1 thou/uL (0.0-0.7); #Lymphocytes 1.6 thou/uL (1.20-3.40); #Monocytes 1.2 thou/uL (0.11-0.59); #Neutrophils 7.9 thou/uL (1.40-6.50); %Basophils 0.2 % (0.0-1.0); %Eosinophils 0.5 % (0.0-10.0); %Lymphocytes 14.7 % (21.0-51.0); %Monocytes 10.9 % (0.0-10.0); %Neutrophils 73.8 % (42.0-75.0); Hemoglobin 9.3 g/dL (12.0-16.0); Mean Corpuscular HGB CONC 33.2 g/dL (32.0-36.0); Mean Platelet Volume 10.2 fL (7.4-10.4); Platelet Count 39 thou/uL (130-400); RBC Distribution Width 14.5 % (11.5-14.5); Red Blood Cell (RBC) Count 2.73 mill/uL (4.20-5.40); White Blood Cell (WBC) Count 10.7 thou/uL (4.8-10.8)
[2018-01-23 05:10] LABS: Anion Gap 11 mmol/L (10-20); Calc. Creatinine Clearance 50 mL/min (70-130); Calcium 8.4 mg/dL (7.8-10.44); Carbon Dioxide 17 mmol/L (23-31); Chloride 113 mmol/L (98-107); Estimated GFR-MDRD 53; Magnesium 1.9 mg/dL (1.6-2.6); Potassium 3.3 mmol/L (3.5-5.1); Sodium 138 mmol/L (136-145)
[2018-01-23 05:16] LABS: BUN (Urea Nitrogen) 27 mg/dL (9.8-20.1); Glucose 129 mg/dL (83-110)
[2018-01-23] MEDS: Levothyroxine 150 MCG TAB PO SCH (06:15)
[2018-01-23] MEDS: Acetaminophen 325 MG TAB PO SCH ×3 (09:28→21:04)
[2018-01-23] MEDS: Isosorbide Dinitrate 5 MG TAB PO SCH ×2 (09:31→21:04)
[2018-01-23] MEDS: Metoprolol Tartrate 25 MG TAB PO SCH ×2 (09:32→21:05)
[2018-01-23] MEDS: Multivit, Therapeutic 1 TAB PO SCH (09:32)
[2018-01-23] MEDS: Magnesium Oxide 400 MG TAB PO SCH (09:32)
[2018-01-23] MEDS: Saccharomyces boulardii 250 MG CAP PO SCH ×2 (09:32→21:04)
[2018-01-23] MEDS: Senokot S 8.6-50 MG TAB PO SCH ×2 (09:33→21:04)
[2018-01-23] MEDS: rOPINIRole HCl 0.25 MG TAB PO SCH ×3 (09:33→21:05)
[2018-01-23] MEDS: Citalopram 20 MG TAB PO SCH (09:33)
[2018-01-23] MEDS: Famotidine 20 MG TAB PO SCH (09:33)
[2018-01-23] MEDS: Folic Acid 1 MG TAB PO SCH (09:33)
[2018-01-23] MEDS: Potassium Chloride 10 MEQ TAB PO SCH ×2 (09:33→17:20)
[2018-01-23] MEDS: Cyanocobalamin (Vitamin B-12) 1,000 MCG TAB PO SCH (09:33)
[2018-01-23] MEDS: Clopidogrel Bisulfate 75 MG TAB PO SCH (09:33)
[2018-01-23] MEDS: Nystatin Powder 15 GM BOT TOP SCH ×2 (09:49→21:06)
[2018-01-23] MEDS ORDERED: Amiodarone 200 MG TAB PO SCH (10:00)
--- NOTE | 2018-01-23 10:04 | PRG ---
DATE OF SERVICE: 01/23/2018 SUBJECTIVE: Ms. Sanchez is doing better today. She did convert to sinus rhythm yesterday on the intrav enous amiodarone. She has been maintaining sinus rhythm. Her breathing has improved. She really overall looks much better. She has had some sinus pauses yes terday she came out of the fibrillation when she was on diltiazem. Had 4-second pauses at that time. The patient maintained sinus rhythm overnight. OBJECTIVE: VITAL SIGNS: Her blood pressure 140/66, pulse 68 and regular. LUNGS: Clear. CARDIAC: Normal S1, normal S2. ABDOMEN: Soft, nontender. EXTREMITIES: No edema. ASSESSMENT: 1. Previous transcutaneous aortic valve replacement. 2. Bacteremia. 3. Previous hip surgery with hip replacement. 4. Previous coronary stenting. 5. Paroxysmal atrial fibrillation with a rapid rate. PLAN: 1. She is on intravenous antibiotics. 2. We will change to oral amiodarone. 3. Replete potassium, it is a 3.3. 4. Prognosis remains guarded.
--- NOTE | 2018-01-23 10:34 | RAD ---
RIGHT HIP TWO VIEWS: HISTORY: Right hip pain. COMPARISON: 11/05/2014 FINDINGS: Postop changes of total hip arthroplasty are again seen, in good position and alignment. No fracture , dislocation, or bony destruction is seen. No perihardware lucency is identified to suggest looseni ng. POS: OFF
[2018-01-23] MEDS: Amiodarone 450 MG, Admixture Fee 1 EACH in Dextrose 5% in Water 250 ML IVPB SCH (10:57)
[2018-01-23] MEDS ORDERED: Potassium Chloride 20 MEQ TAB PO SCH (12:00)
[2018-01-23] MEDS: traMADol HCl 50 MG TAB PO PRN (12:48)
--- NOTE | 2018-01-23 13:11 | EKG ---
Test Reason : Blood Pressure : / mmHG Vent. Rate : 067 BPM Atrial Rate : 067 BPM P-R Int : 168 ms QRS Dur : 138 ms QT Int : 456 ms P-R-T Axes : 068 088 050 degrees QTc Int : 481 ms Normal sinus rhythm Right bundle branch block Abnormal ECG When compared with ECG of 22-JAN-2018 05:40, Sinus rhythm has replaced Atrial fibrillation Vent. rate has decreased BY 91 BPM T wave inversion no longer evident in Inferior leads Nonspecific T wave abnormality no longer evident in Lateral leads Confirmed by MARISOL HORTA, . SYoel (4) on 01/23/2018 1:11:01 PM Referred By: MAGGIE Confirmed By:DR. Yonny DAMON MD
[2018-01-23] MEDS: CEFAZOLIN 2 GM/50 ML BAG IVPB SCH ×2 (15:25→21:25)
[2018-01-23] MEDS: Amiodarone 200 MG TAB PO SCH ×2 (15:34→21:04)
[2018-01-23 16:11] LABS: BF Color Yellow; Body Fluid Source SYNOVIAL FLUID; Clarity Cloudy/Turbid (Clear); Tube # EDTA
[2018-01-23 16:12] LABS: RBC Count-Automated 54000 /cumm; WBC/NonHematic-Auto 5340 /cumm
[2018-01-23 16:40] LABS: BF Segmented Neutrophils 87 %; Cell Count Non Hematic 5 %; Lymphocytes 8 %
--- NOTE | 2018-01-23 17:45 | RAD ---
JOINT ASPIRATION RIGHT HIP: History: Pain. Comparison: None. Technique/Findings: Patient was brought to the fluoroscopy suite where all questions were answered. The patient's right hip was prepped and draped in normal sterile fashion. 3 mL of Lidocaine was intro duced into the soft tissues after informed consent was obtained and timeout performed. Using a 20 gauge spinal needle the right hip joint was accessed. A total of 6 cc of turbulent yellow- red fluid was aspirated. The patient tolerated the procedure well without complications. IMPRESSION: Technically successful fluoroscopic right hip aspiration with removal of 6 cc of turbulent yellowing- red fluid. Phone call was made to the PA after the exam although no answer. FLUORO TIME: 0.2 minutes, dose 29.8 mGy*cm^2. POS: MIRELLA
--- NOTE | 2018-01-23 20:15 | PDOC.PN ---
- Subjective Encounter Start Date: 01/23/18 Encounter Start Time: 08:45 Patient seen and examined for Sepsis. No new complaints. Feels gen weak. No overnight events - Objective Resuscitation Status - Order Detail: 01/23/18 11:56 Resuscitation Status Routine Resuscitation Status: DNAR: NO Resuscitation Discussed with: confirmed with DPOA MAR Reviewed: Yes Vital Signs & Weight: Vital Signs (12 hours) Temp Pulse Resp BP Pulse Ox 01/23/18 19:39 97.8 F 68 20 116/56 L 100 01/23/18 18:00 69 120/55 L 01/23/18 17:13 69 123/48 L 01/23/18 16:00 69 128/67 01/23/18 15:46 98.7 F 66 24 H 153/67 H 100 01/23/18 14:00 66 137/65 01/23/18 13:00 65 143/78 H 01/23/18 12:00 66 130/63 01/23/18 11:59 99.2 F 68 25 H 131/51 L 100 Weight Admit Weight 2.84 oz Weight 186 lb 11.2 oz Most Recent Monitor Data Heart Rate from ECG 71 NIBP 160/96 NIBP BP-Mean 117 Respiration from ECG 24 SpO2 100 I&O: 01/22/18 01/23/18 01/24/18 06:59 06:59 06:59 Intake Total 1190 2542 1700 Output Total 150 Balance 1190 2392 1700 Result Diagrams: 01/24/18 04:29 01/24/18 04:29 Additional Labs: Accuchecks 01/23/18 01/23/18 01/23/18 17:25 10:25 06:07 POC Glucose 158 H 198 H 140 H 01/22/18 21:54 POC Glucose 185 H EKG Reviewed by me: Yes (Tele SR) Phys Exam - Physical Examination Constitutional: NAD Respiratory: no wheezing, no rhonchi Dec AE at bases Cardiovascular: RRR, no rub Gastrointestinal: soft, non-tender Musculoskeletal: no edema Neurological: moves all 4 limbs Dx/Plan - Plan DVT proph w/SCDs 1. Sepsis with acute organ dysfunction secondary to Ecoli UTI /Staph bacteremia 2. Elevated troponins secondary to demand ischemia/type 2 myocardial infarction with Afib with RVR - in SR 3. Acute kidney injury on chronic kidney disease stage 3. improving 4. Metabolic acidosis/lactic acidosis. 5. Right shoulder dislocation ? chronic. 6. Coronary artery disease, status post stent placement on aspirin and Plavix. 7. Aortic stenosis with recent transcatheter aortic valve replacement . 8. Macular degeneration. 9. Diet controlled diabetes mellitus type 2. 10. Mild intermittent asthma. 11. Hypothyroidism. 12. Diverticulosis. 13. Hyperlipidemia. 14. Degenerative joint disease. 15. History of cervical cancer. 16. Chronic anemia. Macrocytic. 17. Thrombocytopenia, probably secondary to sepsis. 18. Mild protein calorie malnutrition. 19. Skin tear with bleeding. PLAN: Await Ortho input Resume Ancef after completing Meropenem for total 3 days On Amiodarone drip Cont other meds as below Cont ASA/Plavix - hold if Platelets <20k No Heparin/Lovenox due to thrombocytopenia Review of Systems - Review of Systems Cardiovascular: negative: chest pain, palpitations, orthopnea, paroxysmal nocturnal dyspnea, edema, light headedness, other Gastrointestinal: negative: Nausea, Vomiting, Abdominal Pain, Diarrhea, Constipation, Melena, Hematochezia, Other - Medications/Allergies Allergies/Adverse Reactions: Allergies Allergy/AdvReac Type Severity Reaction Status Date / Time Penicillins Allergy Verified 01/19/18 20:43 Medications: Current Medications Acetaminophen (Tylenol) 650 mg PO Q4H PRN PRN Reason: Headache/Fever or Mild Pain Last Admin: 01/23/18 04:07 Dose: 650 mg Acetaminophen (Tylenol) 650 mg PO TID [facility] Last Admin: 01/23/18 15:33 Dose: 650 mg Albuterol/Ipratropium (Duoneb) 3 ml NEB Q6H PRN PRN Reason: SOB/WHEEZE Amiodarone HCl (Cordarone) 400 mg PO TID [facility] Last Admin: 01/23/18 15:34 Dose: 400 mg Aspirin (Aspirin Chewable) 81 mg PO DAILY [facility] Last Admin: 01/23/18 09:32 Dose: 81 mg Atorvastatin Calcium (Lipitor) 10 mg PO HS [facility] Last Admin: 01/22/18 21:31 Dose: 10 mg Bisacodyl (Dulcolax) 10 mg [place] DAILYPRN PRN PRN Reason: Constipation Cefazolin Sodium/Dextrose (Ancef 2 Gm/50 Ml) 2 gm IVPB Q8HR [facility] Last Admin: 01/23/18 15:25 Dose: 2 gm Citalopram Hydrobromide (Celexa) 20 mg PO DAILY [facility] Last Admin: 01/23/18 09:33 Dose: 20 mg Clopidogrel Bisulfate (Plavix) 75 mg PO DAILY [facility] Last Admin: 01/23/18 09:33 Dose: 75 mg Cyanocobalamin (Vitamin B-12) 1,000 mcg PO DAILY [facility] Last Admin: 01/23/18 09:33 Dose: 1,000 mcg Dextrose/Water (Dextrose 50%) 25 gm SLOW IVP PRN PRN PRN Reason: Hypoglycemia Famotidine (Pepcid) 20 mg PO DAILY [facility] Last Admin: 01/23/18 09:33 Dose: 20 mg Folic Acid (Folvite) 1 mg PO DAILY [facility] Last Admin: 01/23/18 09:33 Dose: 1 mg Glucagon (Glucagon) 1 mg IM PRN PRN PRN Reason: Hypoglycemia Dextrose/Water (D5w) 1,000 mls @ 0 mls/hr IV .Q0M PRN PRN Reason: Hypoglycemia Sodium Chloride (Normal Saline 0.9%) 1,000 mls @ 50 mls/hr IV .Q20H [facility] Last Admin: 01/22/18 11:00 Dose: 1,000 mls Meropenem 1 gm/ Device 50 mls @ 100 mls/hr IVPB 0000,0800,1600 [facility] Stop: 01/25/18 16:01 Last Admin: 01/23/18 16:15 Dose: 50 mls Insulin Human Regular (Humulin R) 0 units SC .MILD SLIDING SCALE PRN PRN Reason: Mild Correctional Scale Insulin Human Regular (Humulin R) 0 units SC .BEDTIME SLIDING SC PRN PRN Reason: Bedtime Correctional Scale Isosorbide Dinitrate (Isordil) 5 mg PO BID [facility] Last Admin: 01/23/18 09:31 Dose: 5 mg Labetalol HCl (Normodyne) 10 mg SLOW IVP Q4H PRN PRN Reason: Systolic BP > 180 Levothyroxine Sodium (Synthroid) 150 mcg PO 0600 [facility] Last Admin: 01/23/18 06:15 Dose: 150 mcg Magnesium Oxide (Magnesium Oxide) 400 mg PO DAILY [facility] Last Admin: 01/23/18 09:32 Dose: 400 mg Metoprolol Tartrate (Lopressor) 6.25 mg PO BID [facility] Last Admin: 01/23/18 09:32 Dose: 6.25 mg Multivitamins (Theragran) 1 tab PO DAILY [facility] Last Admin: 01/23/18 09:32 Dose: 1 tab Nitroglycerin (Nitrostat) 0.4 mg PO Q5MIN PRN PRN Reason: Chest Pain Nystatin (Mycostatin Powder) 0 gm TOP BID [facility] Last Admin: 01/23/18 09:49 Dose: 1 applic Ondansetron HCl (Zofran Odt) 4 mg PO Q6H PRN PRN Reason: Nausea/Vomiting Ondansetron HCl (Zofran) 4 mg IVP Q6H PRN PRN Reason: Nausea/Vomiting Ropinirole HCl (Requip) 0.25 mg PO TID [facility] Last Admin: 01/23/18 15:34 Dose: 0.25 mg Saccharomyces Boulardii (Florastor) 250 mg PO BID [facility] Last Admin: 01/23/18 09:32 Dose: 250 mg Senna/Docusate Sodium (Senokot S) 1 tab PO BID [facility] Last Admin: 01/23/18 09:33 Dose: 1 tab Sodium Chloride (Flush - Normal Saline) 10 ml IVF PRN PRN PRN Reason: Saline Flush Sodium Chloride (Flush - Normal Saline) 10 ml IVF PRN PRN PRN Reason: Saline Flush Tramadol HCl (Ultram) 50 mg PO Q6H PRN PRN Reason: Moderate Pain (4-6) Last Admin: 01/23/18 12:48 Dose: 50 mg
[2018-01-23] MEDS: Atorvastatin Calcium 10 MG TAB PO SCH (21:04)
[2018-01-23] MEDS: Sodium Chloride 0.9% 1,000 ML IV SCH (21:05)
--- NOTE | 2018-01-23 21:22 | CON ---
DATE OF CONSULTATION: 01/23/2018 SERVICE: Pulmonary Medicine. REASON FOR CONSULT: [facility] patient. HISTORY OF PRESENT ILLNESS: The patient is an 82-year-old white female with past medical history significant for advanced debility. She was in her usual state of health when she presented to the emergency department with complaints of fever. She was watched on telemetry for a period of time. She was discovered to have MSSA growing in the blood stream and a urinary tract infection likely secondary to E. coli. She has been on appropriate antibiotic therapy. Out on the floor, her fever profile, white blood cell count have improved. She ended up with an episode of atrial fibrillation with RVR. She had some marginal blood pressures associated without event, but never required any significant amounts of oxygen. She does not have any history of lung disease. In fact, about a year and a half ago, she had pulmonary function studies demonstrating normal pulmonary function. She cannot provide me much in a way of interval history. Otherwise, much of this information is reviewed in the chart. PAST MEDICAL HISTORY: 1. Coronary artery disease with history of PCI to LAD and circumflex arteries. 2. Type 2 diabetes mellitus. 3. Aortic stenosis, moderate to severe, status post TAVR. 4. Hypothyroidism. 5. Macular degeneration. 6. Diverticulosis. 7. Osteoarthritis. 8. Dyslipidemia. 9. History of C. difficile colitis. 10. History of recurrent urinary tract infections. 11. History of cervical cancer. PAST SURGICAL HISTORY: 1. Transaortic valvular repair. 2. Cholecystectomy. 3. Tonsillectomy. 4. Hysterectomy. 5. Appendectomy. 6. PCI to LAD and circumflex. 7. Right total hip replacement. SOCIAL HISTORY: She currently lives with her . She spends most of her time in bed. She has some early cognitive impairment. She has no exposure to chemicals, dust, asbestos, or tuberculosis. She does not use any alcohol, tobacco, or illicit drugs. FAMILY HISTORY: Noncontributory. ALLERGIES: NO KNOWN DRUG ALLERGIES. MEDICATIONS: List of her inpatient medications were reviewed. No specific updates were made at this time. REVIEW OF SYSTEMS: General, head, eyes, ear, nose, and throat, cardiovascular, respiratory, genitourinary, musculoskeletal, neurologic, and skin are negative except as mentioned in HPI. PHYSICAL EXAMINATION: VITAL SIGNS: Afebrile. Pulse 66, blood pressure 153/67, respirations 24, saturations 100% on room air. GENERAL: The patient is awake, alert, and in no apparent distress. HEENT: Normocephalic, atraumatic. Sclerae white. Conjunctiva pink. Oral mucosa is moist without lesions. LUNGS: There is really good air entry. There is absolutely no prolonged expiratory phase despite the fact that there is minimal wheezing at the end of expiration. I do not appreciate crackles or rhonchi. HEART: Normal rate, regular. ABDOMEN: Soft, nontender, nondistended. Bowel sounds are positive. MUSCULOSKELETAL: No cyanosis or clubbing. There is trace pitting in bilateral lower extremities, but there are also signs of significant volume reduction over short period of time. GENITOURINARY: No Live. NEUROLOGIC: Nonfocal. LABORATORY DATA: WBC 10.7, hemoglobin 9.3, platelets 39,000. Creatinine 1.0, magnesium 1.9, potassium 3.3. Basic metabolic profile is otherwise unremarkable. Urinalysis is positive for 50 white blood cells, large leukocyte esterase, though nitrites are negative. There is 3+ bacteria. No squamous epithelial cells identified. The synovial fluid has 5000 white blood cells. Random vancomycin level is 18.3 from the 21 of January. MSSA is growing 2 out of 2 blood cultures. Urinalysis is growing E. coli which is sensitive to meropenem. IMAGING DATA: Hip x-ray demonstrates postoperative changes. No fracture subluxation is identified. Echocardiogram demonstrates no evidence of valvular abnormalities. Ejection fraction is normal. Right ventricular cavity is slightly enlarged. Certainly, no massive vegetations were noted on this transthoracic study. Shoulder x-ray demonstrates subluxation of the glenohumeral joint with abnormal lucency of the inferior margin of the glenoid. Renal ultrasound demonstrates no evidence of hydronephrosis. Kidneys are small. Chest x-ray demonstrates no acute cardiopulmonary abnormality. ASSESSMENT: 1. Atrial fibrillation with rapid ventricular response, returned to sinus rhythm. 2. Severe sepsis, resolving. 3. Bacteremia secondary to methicillin-sensitive Staphylococcus aureus. 4. Urinary tract infection secondary to tadeo resistant Escherichia coli. 5. Right shoulder subluxation, chronic. 6. Acute kidney injury, resolving. DISCUSSION AND PLAN: We will provide the patient with vanessa Valdez. Supportive care, including antibiotics will be continued. We will try to mobilize the patient as much as tolerated and she still continue working with physical therapy moving forward. Pulmonary Critical Care will continue to follow along, but Dr. Valenzuela will assume care in the morning. 70 minutes have been devoted to this patient in various activities. I personally reviewed all imaging studies and laboratory data noted within this document. For fifty percent of this time, I was interacting with the patient at the bedside or coordinating care with the care team. For the remainder of the time I was immediately available to the patient in the hospital unit. Job ID: [id number] [facility]
[2018-01-24] MEDS: Acetaminophen 325 MG TAB PO PRN (03:29)
[2018-01-24] MEDS: Sodium Chloride 0.9% 1,000 ML IV SCH (04:04)
[2018-01-24 05:14] LABS: INR-International Normal Ratio 1.4; PTT 35.5 SEC (22.9-36.1); Prothrombin Time 17.5 SEC (12.0-14.7)
[2018-01-24 05:18] LABS: Anion Gap 11 mmol/L (10-20); BUN (Urea Nitrogen) 27 mg/dL (9.8-20.1); Calc. Creatinine Clearance 53 mL/min (70-130); Calcium 8.7 mg/dL (7.8-10.44); Carbon Dioxide 16 mmol/L (23-31); Chloride 114 mmol/L (98-107); Estimated GFR-MDRD 48; Glucose 155 mg/dL (83-110); Potassium 4.7 mmol/L (3.5-5.1); Sodium 136 mmol/L (136-145)
[2018-01-24 05:53] LABS: Band 17 % (5-11); Eosinophils 2 % (0-10); Hemoglobin 9.6 g/dL (12.0-16.0); Lymphocytes 13 % (21-51); MDiff Complete? YES; Macrocytosis SLIGHT = 6-15 cells (100X) (0-5/hpf); Mean Corpuscular HGB CONC 33.8 g/dL (32.0-36.0); Mean Corpuscular Hemoglobin 34.3 pg (27.0-31.0); Mean Platelet Volume 10.5 fL (7.4-10.4); Monocytes 5 % (0-10); Myelocyte 1 % (0-0); Neutrophil 62 % (42-75); Platelet Count 63 thou/uL (130-400); Platelet Morphology Comment Appears Decreased; RBC Distribution Width 14.5 % (11.5-14.5); White Blood Cell (WBC) Count 12.2 thou/uL (4.8-10.8)
[2018-01-24] MEDS: Levothyroxine 150 MCG TAB PO SCH (06:08)
[2018-01-24] MEDS: CEFAZOLIN 2 GM/50 ML BAG IVPB SCH ×3 (06:08→21:16)
[2018-01-24] MEDS: Dextrose 5 %-0.45 % NaCl 1,000 ML IV SCH (07:15)
--- NOTE | 2018-01-24 08:10 | PRG ---
DATE OF SERVICE: 01/24/2018 SUBJECTIVE: Ms. Sanchez is resting comfortably. No complaints. OBJECTIVE: VITAL SIGNS: Oxygen saturation 99% on room air. Her blood pressure is stable at 114/49, pulse is 80 at sinus rhythm on the monitor. LUNGS: Clear. CARDIAC: Normal S1. Normal S2. ABDOMEN: Soft, nontender. EXTREMITIES: No edema. ASSESSMENT: 1. Bacteriemia. 2. Still has a fever of 101.8 last night. 3. Atrial fibrillation, now back in sinus rhythm. 4. Previous transcutaneous aortic valve replacement. PLAN: 1. She is on antibiotics. 2. She is on oral amiodarone. 3. It is okay to me to go back to telemetry at this stage. Job ID: [id number]
[2018-01-24] MEDS: MEROPENEM 1 GM/50 ML 1 GM in Premix Bag 1 BAG IVPB SCH ×3 (08:33→23:52)
[2018-01-24] MEDS: Acetaminophen 325 MG TAB PO SCH ×3 (08:37→20:55)
[2018-01-24] MEDS: Isosorbide Dinitrate 5 MG TAB PO SCH ×2 (08:37→20:55)
[2018-01-24] MEDS: Magnesium Oxide 400 MG TAB PO SCH (08:37)
[2018-01-24] MEDS: Metoprolol Tartrate 25 MG TAB PO SCH ×2 (08:37→20:59)
[2018-01-24] MEDS: Famotidine 20 MG TAB PO SCH (08:38)
[2018-01-24] MEDS: Saccharomyces boulardii 250 MG CAP PO SCH ×2 (08:38→20:55)
[2018-01-24] MEDS: Senokot S 8.6-50 MG TAB PO SCH ×2 (08:38→20:55)
[2018-01-24] MEDS: Citalopram 20 MG TAB PO SCH (08:38)
[2018-01-24] MEDS: Cyanocobalamin (Vitamin B-12) 1,000 MCG TAB PO SCH (08:38)
[2018-01-24] MEDS: Amiodarone 200 MG TAB PO SCH ×3 (08:38→20:55)
[2018-01-24] MEDS: Folic Acid 1 MG TAB PO SCH (08:38)
[2018-01-24] MEDS: Clopidogrel Bisulfate 75 MG TAB PO SCH (08:38)
[2018-01-24] MEDS: Multivit, Therapeutic 1 TAB PO SCH ×2 (08:38→08:40)
[2018-01-24] MEDS: rOPINIRole HCl 0.25 MG TAB PO SCH ×3 (08:48→20:54)
[2018-01-24] MEDS: pyridOXINE 50 MG (B6) TAB PO SCH (08:48)
[2018-01-24] MEDS: Nystatin Powder 15 GM BOT TOP SCH ×2 (09:29→20:56)
--- NOTE | 2018-01-24 09:54 | PRG ---
DATE OF SERVICE: 01/24/2018 SUBJECTIVE: Mrs. Sanchez is doing somewhat better today. She had no specific complaints. OBJECTIVE: VITAL SIGNS: On exam, her temperature is 99.8 with a T-max of 101.8, pulse 73, respirations 19, O2 saturation 99%, and blood pressure 120/53. GENERAL: She appears extremely debilitated. HEENT: Unremarkable. NECK: No JVD. LUNGS: Clear without wheezing. CARDIAC: S1 and S2, regular with 2/6 systolic murmur. ABDOMEN: Soft. EXTREMITIES: There is generalized swelling throughout. LABORATORY DATA: White blood cell count 12.2, hematocrit 28.4, platelet count 63. INR 1.4. Sodium 132, potassium 4.7, chloride 114, CO2 16, BUN 27, creatinine 1.1, glucose 155. Cultures are growing out staph from 01/19 and E. coli from 01/19 in the urine. ASSESSMENT: 1. Polymicrobial sepsis. 2. Atrial fibrillation with rapid ventricular response, now sinus. 3. Right shoulder subluxation, which is chronic. 4. Status post hip replacement. 5. Status post aortic valve replacement. PLAN: She will need prolonged antibiotics. Dr. Krause is seeing her for that and will decide on duration of treatment. At this point, I do not have anything else to add to her excellent care. Job ID: [id number]
[2018-01-24] MEDS ORDERED: Fentanyl 100 MCG/2 ML VIAL ONE (09:58)
[2018-01-24] MEDS: Fentanyl 100 MCG/2 ML VIAL SLOW IVP PRN ×3 (10:00→23:47)
[2018-01-24 11:38] LABS: Anion Gap 8 mmol/L (10-20); BUN (Urea Nitrogen) 27 mg/dL (9.8-20.1); Calc. Creatinine Clearance 49 mL/min (70-130); Carbon Dioxide 19 mmol/L (23-31); Chloride 112 mmol/L (98-107); Estimated GFR-MDRD 44; Glucose 168 mg/dL (83-110); Sodium 134 mmol/L (136-145)
[2018-01-24] MEDS: traMADol HCl 50 MG TAB PO PRN (13:37)
--- NOTE | 2018-01-24 15:39 | PDOC.PN ---
- Subjective Encounter Start Date: 01/24/18 Encounter Start Time: 08:00 Patient seen and examined for Sepsis. Feels gen weak. No new complaints. No overnight events - Objective Resuscitation Status - Order Detail: 01/23/18 11:56 Resuscitation Status Routine Resuscitation Status: DNAR: NO Resuscitation Discussed with: confirmed with DPOA MAR Reviewed: Yes Vital Signs & Weight: Vital Signs (12 hours) Temp Pulse Resp BP Pulse Ox 01/24/18 15:21 97.6 F 67 20 117/64 100 01/24/18 11:03 99.0 F 63 18 118/55 L 99 01/24/18 08:00 99 01/24/18 07:33 99.8 F H 73 19 120/53 L 99 01/24/18 06:31 99 01/24/18 06:05 99.6 F 79 20 114/49 L 99 01/24/18 04:00 99.8 F H 81 20 111/47 L 100 Weight Admit Weight 2.84 oz Weight 186 lb 6.4 oz Most Recent Monitor Data Heart Rate from ECG 71 NIBP 160/96 NIBP BP-Mean 117 Respiration from ECG 24 SpO2 100 I&O: 01/23/18 01/24/18 01/25/18 06:59 06:59 06:59 Intake Total 2542 2740 640 Output Total 150 Balance 2392 2740 640 Result Diagrams: 01/24/18 04:29 01/24/18 10:56 Additional Labs: Accuchecks 01/24/18 01/24/18 01/23/18 10:33 05:44 20:14 POC Glucose 176 H 159 H 199 H 01/23/18 17:25 POC Glucose 158 H EKG Reviewed by me: Yes (Tele SR) Phys Exam - Physical Examination Constitutional: NAD Respiratory: no wheezing, no rhonchi Cardiovascular: RRR, no rub Gastrointestinal: soft, non-tender, positive bowel sounds Musculoskeletal: no edema Neurological: moves all 4 limbs Dx/Plan - Plan DVT proph w/SCDs 1. Sepsis with acute organ dysfunction secondary to Ecoli UTI /Staph bacteremia 2. Elevated troponins secondary to demand ischemia/type 2 myocardial infarction with Afib with RVR - in SR 3. Acute kidney injury on chronic kidney disease stage 3. improving 4. Metabolic acidosis/lactic acidosis. 5. Right shoulder dislocation ? chronic. 6. Coronary artery disease, status post stent placement on aspirin and Plavix. 7. Aortic stenosis with recent transcatheter aortic valve replacement . 8. Macular degeneration. 9. Diet controlled diabetes mellitus type 2. 10. Mild intermittent asthma. 11. Hypothyroidism. 12. Diverticulosis. 13. Hyperlipidemia. 14. Degenerative joint disease. 15. History of cervical cancer. 16. Chronic anemia. Macrocytic. 17. Thrombocytopenia, probably secondary to sepsis. improving 18. Mild protein calorie malnutrition. 19. Skin tear with bleeding. PLAN: Resume Ancef after completing Meropenem for total 3 days On Amiodarone Cont other meds as below Cont ASA/Plavix - hold if Platelets <20k No Heparin/Lovenox due to thrombocytopenia Ortho input appreciated AM labs Review of Systems - Review of Systems Respiratory: negative: Cough, Dry, Shortness of Breath, Hemoptysis, SOB with Excertion, Pleuritic Pain, Sputum, Wheezing Cardiovascular: negative: chest pain, palpitations, orthopnea, paroxysmal nocturnal dyspnea, edema, light headedness, other - Medications/Allergies Allergies/Adverse Reactions: Allergies Allergy/AdvReac Type Severity Reaction Status Date / Time Penicillins Allergy Verified 01/19/18 20:43 Medications: Current Medications Acetaminophen (Tylenol) 650 mg PO Q4H PRN PRN Reason: Headache/Fever or Mild Pain Last Admin: 01/24/18 03:29 Dose: 650 mg Acetaminophen (Tylenol) 650 mg PO TID [facility] Last Admin: 01/24/18 14:46 Dose: 650 mg Albuterol/Ipratropium (Duoneb) 3 ml NEB Q6H PRN PRN Reason: SOB/WHEEZE Last Admin: 01/24/18 01:41 Dose: 3 ml Amiodarone HCl (Cordarone) 400 mg PO TID [facility] Last Admin: 01/24/18 14:46 Dose: 400 mg Aspirin (Aspirin Chewable) 81 mg PO DAILY [facility] Last Admin: 01/24/18 08:38 Dose: 81 mg Atorvastatin Calcium (Lipitor) 10 mg PO HS [facility] Last Admin: 01/23/18 21:04 Dose: 10 mg Bisacodyl (Dulcolax) 10 mg [place] DAILYPRN PRN PRN Reason: Constipation Cefazolin Sodium/Dextrose (Ancef 2 Gm/50 Ml) 2 gm IVPB Q8HR [facility] Last Admin: 11/28/18 13:38 Dose: 2 gm Citalopram Hydrobromide (Celexa) 20 mg PO DAILY [facility] Last Admin: 01/24/18 08:38 Dose: 20 mg Cyanocobalamin (Vitamin B-12) 1,000 mcg PO DAILY [facility] Last Admin: 01/24/18 08:38 Dose: 1,000 mcg Dextrose/Water (Dextrose 50%) 25 gm SLOW IVP PRN PRN PRN Reason: Hypoglycemia Famotidine (Pepcid) 20 mg PO DAILY [facility] Last Admin: 01/24/18 08:38 Dose: 20 mg Fentanyl (Sublimaze) 25 mcg SLOW IVP Q4H PRN PRN Reason: Severe Pain (7-10) Last Admin: 01/24/18 10:00 Dose: 25 mcg Folic Acid (Folvite) 1 mg PO DAILY [facility] Last Admin: 01/24/18 08:38 Dose: 1 mg Glucagon (Glucagon) 1 mg IM PRN PRN PRN Reason: Hypoglycemia Dextrose/Water (D5w) 1,000 mls @ 0 mls/hr IV .Q0M PRN PRN Reason: Hypoglycemia Meropenem 1 gm/ Device 50 mls @ 100 mls/hr IVPB 0000,0800,1600 [facility] Stop: 01/25/18 16:01 Last Admin: 01/24/18 15:28 Dose: 50 mls Dextrose/Sodium Chloride (D5 1/2 Ns) 1,000 mls @ 50 mls/hr IV .Q20H [facility] Last Admin: 01/24/18 07:15 Dose: 1,000 mls Insulin Human Regular (Humulin R) 0 units SC .MILD SLIDING SCALE PRN PRN Reason: Mild Correctional Scale Insulin Human Regular (Humulin R) 0 units SC .BEDTIME SLIDING SC PRN PRN Reason: Bedtime Correctional Scale Isosorbide Dinitrate (Isordil) 5 mg PO BID [facility] Last Admin: 01/24/18 08:37 Dose: 5 mg Labetalol HCl (Normodyne) 10 mg SLOW IVP Q4H PRN PRN Reason: Systolic BP > 180 Levothyroxine Sodium (Synthroid) 150 mcg PO 0600 [facility] Last Admin: 01/24/18 06:08 Dose: 150 mcg Magnesium Oxide (Magnesium Oxide) 400 mg PO DAILY [facility] Last Admin: 01/24/18 08:37 Dose: 400 mg Metoprolol Tartrate (Lopressor) 6.25 mg PO BID [facility] Last Admin: 01/24/18 08:37 Dose: 6.25 mg Multivitamins (Theragran) 1 tab PO DAILY [facility] Last Admin: 01/24/18 08:38 Dose: 1 tab Multivitamins (Theragran) 1 tab PO DAILY [facility] Last Admin: 01/24/18 08:40 Dose: Not Given Nitroglycerin (Nitrostat) 0.4 mg PO Q5MIN PRN PRN Reason: Chest Pain Nystatin (Mycostatin Powder) 0 gm TOP BID [facility] Last Admin: 01/24/18 09:29 Dose: 1 applic Ondansetron HCl (Zofran Odt) 4 mg PO Q6H PRN PRN Reason: Nausea/Vomiting Ondansetron HCl (Zofran) 4 mg IVP Q6H PRN PRN Reason: Nausea/Vomiting Pyridoxine HCl (Vitamin B 6) 50 mg PO DAILY [facility] Last Admin: 01/24/18 08:48 Dose: 50 mg Ropinirole HCl (Requip) 0.25 mg PO TID [facility] Last Admin: 01/24/18 14:46 Dose: 0.25 mg Saccharomyces Boulardii (Florastor) 250 mg PO BID [facility] Last Admin: 01/24/18 08:38 Dose: 250 mg Senna/Docusate Sodium (Senokot S) 1 tab PO BID [facility] Last Admin: 01/24/18 08:38 Dose: 1 tab Sodium Chloride (Flush - Normal Saline) 10 ml IVF PRN PRN PRN Reason: Saline Flush Last Admin: 01/24/18 08:37 Dose: 10 ml Sodium Chloride (Flush - Normal Saline) 10 ml IVF PRN PRN PRN Reason: Saline Flush Tramadol HCl (Ultram) 50 mg PO Q6H PRN PRN Reason: Moderate Pain (4-6) Last Admin: 01/24/18 13:37 Dose: 50 mg
[2018-01-24] MEDS: Atorvastatin Calcium 10 MG TAB PO SCH (20:55)
[2018-01-25] MEDS: Dextrose 5 %-0.45 % NaCl 1,000 ML IV SCH ×2 (02:04→22:20)
[2018-01-25] MEDS: traMADol HCl 50 MG TAB PO PRN (02:06)
[2018-01-25] MEDS: Fentanyl 100 MCG/2 ML VIAL SLOW IVP PRN ×5 (04:35→22:22)
[2018-01-25 05:03] LABS: Band 13 % (5-11); Eosinophils 1 % (0-10); Hemoglobin 9.6 g/dL (12.0-16.0); Lymphocytes 8 % (21-51); MDiff Complete? YES; Mean Corpuscular HGB CONC 33.8 g/dL (32.0-36.0); Mean Corpuscular Hemoglobin 34.5 pg (27.0-31.0); Monocytes 6 % (0-10); Neutrophil 72 % (42-75); Platelet Count 78 thou/uL (130-400); Platelet Morphology Comment Appears Decreased; RBC Distribution Width 14.6 % (11.5-14.5); Red Blood Cell (RBC) Count 2.78 mill/uL (4.20-5.40); White Blood Cell (WBC) Count 17.3 thou/uL (4.8-10.8)
[2018-01-25 05:06] LABS: ALT (SGPT) Less than 7 U/L (8-55); AST (SGOT) 28 U/L (5-34); Albumin 2.1 g/dL (3.4-4.8); Alkaline Phosphatase 111 U/L (40-150); Anion Gap 7 mmol/L (10-20); BUN (Urea Nitrogen) 27 mg/dL (9.8-20.1); Bilirubin, Total 0.4 mg/dL (0.2-1.2); Calc. Creatinine Clearance 56 mL/min (70-130); Calcium 8.3 mg/dL (7.8-10.44); Carbon Dioxide 18 mmol/L (23-31); Chloride 112 mmol/L (98-107); Estimated GFR-MDRD 51; Globulin 3.3 g/dL (2.4-3.5); Glucose 139 mg/dL (83-110); Potassium 4.2 mmol/L (3.5-5.1); Protein, Total 5.4 g/dL (6.0-8.3); Sodium 133 mmol/L (136-145)
[2018-01-25] MEDS: CEFAZOLIN 2 GM/50 ML BAG IVPB SCH ×3 (06:11→22:23)
[2018-01-25] MEDS: Levothyroxine 150 MCG TAB PO SCH (06:12)
[2018-01-25] MEDS: Metoprolol Tartrate 25 MG TAB PO SCH (06:27)
[2018-01-25] MEDS ORDERED: Fentanyl 100 MCG/2 ML VIAL ONE (08:13)
[2018-01-25] MEDS ORDERED: Ketamine 50 MG/ML (10ML VIAL) ONE (08:13)
[2018-01-25] MEDS ORDERED: Tobramycin Sulfate 1.2 GM VIAL ONE ×2 (10:07→10:11)
[2018-01-25] MEDS ORDERED: Lidocaine 1% PF 5 ML VIAL ONE (11:33)
[2018-01-25] MEDS ORDERED: PHENYLEPHRINE-NS 100 MCG/ML 10 ML SYRINGE ONE (11:33)
[2018-01-25 11:50] VITALS: BMI 32.3
[2018-01-25] MEDS: Amiodarone 200 MG TAB PO SCH ×2 (13:06→14:09)
[2018-01-25] MEDS: Acetaminophen 325 MG TAB PO SCH ×3 (13:06→22:21)
[2018-01-25] MEDS: MEROPENEM 1 GM/50 ML 1 GM in Premix Bag 1 BAG IVPB SCH ×2 (13:06→16:45)
[2018-01-25] MEDS: Multivit, Therapeutic 1 TAB PO SCH ×2 (13:07→13:08)
[2018-01-25] MEDS: Citalopram 20 MG TAB PO SCH (13:07)
[2018-01-25] MEDS: Magnesium Oxide 400 MG TAB PO SCH (13:07)
[2018-01-25] MEDS: Isosorbide Dinitrate 5 MG TAB PO SCH (13:07)
[2018-01-25] MEDS: Folic Acid 1 MG TAB PO SCH (13:07)
[2018-01-25] MEDS: Famotidine 20 MG TAB PO SCH (13:07)
[2018-01-25] MEDS: Cyanocobalamin (Vitamin B-12) 1,000 MCG TAB PO SCH (13:07)
[2018-01-25] MEDS: Nystatin Powder 15 GM BOT TOP SCH ×2 (13:08→22:30)
[2018-01-25] MEDS: pyridOXINE 50 MG (B6) TAB PO SCH (13:08)
[2018-01-25] MEDS: rOPINIRole HCl 0.25 MG TAB PO SCH ×3 (13:09→22:31)
[2018-01-25] MEDS: Senokot S 8.6-50 MG TAB PO SCH ×2 (13:10→22:31)
[2018-01-25] MEDS: Saccharomyces boulardii 250 MG CAP PO SCH ×2 (13:10→22:31)
--- NOTE | 2018-01-25 14:11 | RAD ---
TWO VIEWS RIGHT HIP: Comparison: 01-23-18 History: Post op right hip arthroplasty. FINDINGS: Two views of the right hip shows revision of the previously seen right hip arthroplasty. There is a n ew femoral component. There is high density material along the acetabulum which may represent bone ce ment. Soft tissue swelling and air in the soft tissues is from recent surgery. IMPRESSION: Status post revision right hip arthroplasty without evidence of complication. POS: MIRELLA
--- NOTE | 2018-01-25 20:22 | PDOC.PN ---
- Subjective Encounter Start Date: 01/25/18 Encounter Start Time: 17:00 Patient seen and examined for Sepsis. s/p R hip hardware removal. On Vent. No new complaints. No overnight events - Objective Resuscitation Status - Order Detail: 01/23/18 11:56 Resuscitation Status Routine Resuscitation Status: DNAR: NO Resuscitation Discussed with: confirmed with DPOA MAR Reviewed: Yes Vital Signs & Weight: Vital Signs (12 hours) Temp Pulse Resp BP Pulse Ox 01/25/18 18:21 78 01/25/18 18:00 29 H 01/25/18 16:00 99.1 F 12 01/25/18 15:16 72 119/62 01/25/18 14:37 97.8 F 01/25/18 14:00 12 01/25/18 12:00 12 100 01/25/18 11:33 70 153/127 H Weight Admit Weight 191 lb 12.835 oz Weight 188 lb 6.4 oz Most Recent Monitor Data Heart Rate from ECG 78 NIBP 122/96 NIBP BP-Mean 104 Respiration from ECG 17 SpO2 100 I&O: 01/24/18 01/25/18 01/26/18 06:59 06:59 06:59 Intake Total 2740 2755 200 Output Total 280 Balance 2740 2755 -80 Result Diagrams: 01/25/18 03:46 01/25/18 03:46 Additional Labs: Accuchecks 01/25/18 01/25/18 01/24/18 15:23 05:58 20:07 POC Glucose 183 H 142 H 144 H EKG Reviewed by me: Yes (Tele SR) Phys Exam - Physical Examination Constitutional: NAD Respiratory: no wheezing, no rhonchi Cardiovascular: RRR, no rub Gastrointestinal: soft, non-tender, positive bowel sounds Musculoskeletal: no edema Neurological: non-focal, moves all 4 limbs Dx/Plan - Plan DVT proph w/SCDs 1. Sepsis with acute organ dysfunction secondary to Ecoli UTI /Staph bacteremia 2. Elevated troponins secondary to demand ischemia/type 2 myocardial infarction with Afib with RVR - in SR 3. Acute kidney injury on chronic kidney disease stage 3. improving 4. Metabolic acidosis/lactic acidosis. 5. 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 Coronary artery disease, status post stent placement on aspirin and Plavix. 7. Aortic stenosis with recent transcatheter aortic valve replacement . 8. Macular degeneration. 9. Diet controlled diabetes mellitus type 2. 10. Mild intermittent asthma. 11. Hypothyroidism. 12. Diverticulosis. 13. Hyperlipidemia. 14. Degenerative joint disease. 15. History of cervical cancer. 16. Chronic anemia. Macrocytic. 17. Thrombocytopenia, probably secondary to sepsis. improving 18. Mild protein calorie malnutrition. 19. Skin tear with bleeding/Right shoulder dislocation ? chronic. PLAN: Cont Ancef Cont Amiodarone Cont other meds as below Cont ASA/Plavix - hold if Platelets <20k No Heparin/Lovenox due to thrombocytopenia AM labs Review of Systems - Review of Systems Respiratory: negative: Cough, Dry, Shortness of Breath, Hemoptysis, SOB with Excertion, Pleuritic Pain, Sputum, Wheezing Cardiovascular: negative: chest pain, palpitations, orthopnea, paroxysmal nocturnal dyspnea, edema, light headedness, other - Medications/Allergies Allergies/Adverse Reactions: Allergies Allergy/AdvReac Type Severity Reaction Status Date / Time Penicillins Allergy Verified 01/19/18 20:43 Medications: Current Medications Acetaminophen (Tylenol) 650 mg PO Q4H PRN PRN Reason: Headache/Fever or Mild Pain Last Admin: 01/24/18 03:29 Dose: 650 mg Acetaminophen (Tylenol) 650 mg PO TID [facility] Last Admin: 01/25/18 14:08 Dose: Not Given Albuterol/Ipratropium (Duoneb) 3 ml NEB Q6H PRN PRN Reason: SOB/WHEEZE Last Admin: 01/24/18 01:41 Dose: 3 ml Amiodarone HCl (Cordarone) 400 mg PO TID [facility] Last Admin: 01/25/18 14:09 Dose: Not Given Aspirin (Aspirin Chewable) 81 mg PO DAILY [facility] Last Admin: 01/25/18 13:06 Dose: Not Given Atorvastatin Calcium (Lipitor) 10 mg PO HS [facility] Last Admin: 01/24/18 20:55 Dose: 10 mg Bisacodyl (Dulcolax) 10 mg [place] DAILYPRN PRN PRN Reason: Constipation Cefazolin Sodium/Dextrose (Ancef 2 Gm/50 Ml) 2 gm IVPB Q8HR [facility] Last Admin: 01/25/18 14:08 Dose: 2 gm Citalopram Hydrobromide (Celexa) 20 mg PO DAILY [facility] Last Admin: 01/25/18 13:07 Dose: Not Given Cyanocobalamin (Vitamin B-12) 1,000 mcg PO DAILY [facility] Last Admin: 01/25/18 13:07 Dose: Not Given Dextrose/Water (Dextrose 50%) 25 gm SLOW IVP PRN PRN PRN Reason: Hypoglycemia Famotidine (Pepcid) 20 mg PO DAILY [facility] Last Admin: 01/25/18 13:07 Dose: Not Given Fentanyl (Sublimaze) 25 mcg SLOW IVP Q4H PRN PRN Reason: Severe Pain (7-10) Last Admin: 01/25/18 20:04 Dose: 25 mcg Folic Acid (Folvite) 1 mg PO DAILY [facility] Last Admin: 01/25/18 13:07 Dose: Not Given Glucagon (Glucagon) 1 mg IM PRN PRN PRN Reason: Hypoglycemia Dextrose/Water (D5w) 1,000 mls @ 0 mls/hr IV .Q0M PRN PRN Reason: Hypoglycemia Dextrose/Sodium Chloride (D5 1/2 Ns) 1,000 mls @ 50 mls/hr IV .Q20H [facility] Last Admin: 01/25/18 02:04 Dose: 1,000 mls Insulin Human Regular (Humulin R) 0 units SC .MILD SLIDING SCALE PRN PRN Reason: Mild Correctional Scale Last Admin: 01/24/18 16:30 Dose: 3 units Insulin Human Regular (Humulin R) 0 units SC .BEDTIME SLIDING SC PRN PRN Reason: Bedtime Correctional Scale Isosorbide Dinitrate (Isordil) 5 mg PO BID [facility] Last Admin: 01/25/18 13:07 Dose: Not Given Labetalol HCl (Normodyne) 10 mg SLOW IVP Q4H PRN PRN Reason: Systolic BP > 180 Levothyroxine Sodium (Synthroid) 150 mcg PO 0600 [facility] Last Admin: 01/25/18 06:12 Dose: 150 mcg Magnesium Oxide (Magnesium Oxide) 400 mg PO DAILY [facility] Last Admin: 01/25/18 13:07 Dose: Not Given Metoprolol Tartrate (Lopressor) 6.25 mg PO BID [facility] Last Admin: 01/25/18 06:27 Dose: 6.25 mg Multivitamins (Theragran) 1 tab PO DAILY [facility] Last Admin: 01/25/18 13:07 Dose: Not Given Multivitamins (Theragran) 1 tab PO DAILY [facility] Last Admin: 01/25/18 13:08 Dose: Not Given Nitroglycerin (Nitrostat) 0.4 mg PO Q5MIN PRN PRN Reason: Chest Pain Nystatin (Mycostatin Powder) 0 gm TOP BID [facility] Last Admin: 01/25/18 13:08 Dose: Not Given Ondansetron HCl (Zofran Odt) 4 mg PO Q6H PRN PRN Reason: Nausea/Vomiting Ondansetron HCl (Zofran) 4 mg IVP Q6H PRN PRN Reason: Nausea/Vomiting Pyridoxine HCl (Vitamin B 6) 50 mg PO DAILY [facility] Last Admin: 01/25/18 13:08 Dose: Not Given Ropinirole HCl (Requip) 0.25 mg PO TID [facility] Last Admin: 01/25/18 14:09 Dose: Not Given Saccharomyces Boulardii (Florastor) 250 mg PO BID [facility] Last Admin: 01/25/18 13:10 Dose: Not Given Senna/Docusate Sodium (Senokot S) 1 tab PO BID [facility] Last Admin: 01/25/18 13:10 Dose: Not Given Sodium Chloride (Flush - Normal Saline) 10 ml IVF PRN PRN PRN Reason: Saline Flush Last Admin: 01/24/18 08:37 Dose: 10 ml Sodium Chloride (Flush - Normal Saline) 10 ml IVF PRN PRN PRN Reason: Saline Flush Tramadol HCl (Ultram) 50 mg PO Q6H PRN PRN Reason: Moderate Pain (4-6) Last Admin: 01/25/18 02:06 Dose: 50 mg
[2018-01-25] MEDS ORDERED: CEFAZOLIN 2 GM/50 ML BAG IVPB SCH (21:00)
--- NOTE | 2018-01-25 22:05 | PRG ---
DATE OF SERVICE: 01/25/2018 SUBJECTIVE: Elysia Sanchez went to the OR. She was transferred back intubated. She did awaken. She would weakly move all of her extremities. Intake and output coming in today was positive 2755, there is no output recorded. She has had a diaper. OBJECTIVE: VITAL SIGNS: Heart rate is in the 70s, respiratory rate is in 20s, blood pressure 122/96. GENERAL: When I examined her, she would awake and look at me and weakly nod. LUNGS: Clear. HEART: Regular rhythm. S1 and S2 are normal. ABDOMEN: Soft and nontender. EXTREMITIES: Without asymmetry. She is edematous. LABORATORY DATA: White count 17.3, hemoglobin 9.6, platelets 78,000. Sodium 133, potassium 4.2, chloride 112, bicarb 18, BUN 27, creatinine 1.04, anion gap is 3. Microbiology from today shows no white cells and no organisms on the tissue culture from the hip. She had 2 blood cultures from the that grew out Staphylococcus and a urine culture that grew out E coli. IMPRESSION AND PLAN: She would remain mechanically ventilated overnight. Hopefully, in the morning, we can extubate her. I am told by the nursing staff that the family is adamant that she continue with the DNR status. She needs lab and blood gas in the morning. Also, no blood gas done when she got back from the operating room, so this needs to be done. Critical care time is 35 minutes. Job ID: [id number] [facility]TDD
--- NOTE | 2018-01-26 00:06 | PRG ---
DATE OF SERVICE: 01/25/2018 SUBJECTIVE: Ms. Sanchez has had washout and removal of the hip arthroplasty and she has a new implant in place after discussions with family. She is in the ICU now. She appears awake, orotracheally intubated. OBJECTIVE: VITAL SIGNS: Max 101.8 yesterday, she has been afebrile since. Blood pressure 122/96, she is not on pressors. HEART: S1 and S2. Regular rate. LUNGS: Symmetrical breath sounds. HEENT: Ocular movements appear conjugate. Pupils are equal and reactive. ABDOMEN: Soft. LABORATORY DATA: White cell count is 17.3, hemoglobin 9.6, platelets 78,000,13% bands, 72% neutrophils. Sodium 133, creatinine 1.04. Liver profile is normal. Albumin is 2.1. The culture on the hip tissue is still pending and hip joint fluid culture is pending as well. 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 She is on cefazolin, to be continued at the current dose of 2 g q.8 hours via the trach tube at a time. After that, she will transition to oral Keflex pretty much for an indefinite duration of time. The site of involvement is still a concern and we will continue to monitor her progress.. Job ID: [id number] [facility]
[2018-01-26] MEDS: Amiodarone 200 MG TAB PO SCH ×5 (04:22→20:27)
[2018-01-26] MEDS: Metoprolol Tartrate 25 MG TAB PO SCH ×2 (04:23→09:51)
[2018-01-26] MEDS: Atorvastatin Calcium 10 MG TAB PO SCH ×2 (04:23→21:10)
[2018-01-26] MEDS: Isosorbide Dinitrate 5 MG TAB PO SCH ×3 (04:23→20:26)
[2018-01-26] MEDS: Fentanyl 100 MCG/2 ML VIAL SLOW IVP PRN ×2 (04:24→15:12)
[2018-01-26] MEDS: CEFAZOLIN 2 GM/50 ML BAG IVPB SCH ×3 (05:43→21:12)
[2018-01-26 06:09] LABS: Anion Gap 8 mmol/L (10-20); BUN (Urea Nitrogen) 25 mg/dL (9.8-20.1); Calc. Creatinine Clearance 55 mL/min (70-130); Calcium 8.1 mg/dL (7.8-10.44); Carbon Dioxide 18 mmol/L (23-31); Chloride 115 mmol/L (98-107); Estimated GFR-MDRD 49; Glucose 100 mg/dL (83-110); Magnesium 1.6 mg/dL (1.6-2.6); Potassium 4.3 mmol/L (3.5-5.1); Sodium 137 mmol/L (136-145)
[2018-01-26 06:14] LABS: Band 1 % (5-11); Hemoglobin 9.3 g/dL (12.0-16.0); Hypochromia SLIGHT = 6-15 cells (100X) (0-5/hpf); Lymphocytes 13 % (21-51); MDiff Complete? YES; Mean Corpuscular HGB CONC 33.1 g/dL (32.0-36.0); Mean Corpuscular Hemoglobin 32.2 pg (27.0-31.0); Mean Corpuscular Volume 97.3 fL (78.0-98.0); Mean Platelet Volume 9.8 fL (7.4-10.4); Neutrophil 86 % (42-75); Platelet Count 95 thou/uL (130-400); Platelet Morphology Comment Appears Decreased; RBC Distribution Width 17.2 % (11.5-14.5); White Blood Cell (WBC) Count 12.6 thou/uL (4.8-10.8)
[2018-01-26 07:22] LABS: Actual Bicarbonate (HCO3a) 22.8 mEq/L (22-28); CO2 Tension 30.2 mmHg (35.0-45.0); Calcium, Ionized 1.18 mmol/L (1.12-1.30); Carboxyhemoglobin (COHb) 1.6 gm% (0.0-3.0); Hemoglobin (Hb) 8.8 g/dL (12.0-16.0); O2 Tension (PaO2) 124.6 mmHg (> 60.0); Potassium - ABG Lab 3.89 mmol/L (3.70-5.30)
--- NOTE | 2018-01-26 08:43 | PRG ---
DATE OF SERVICE: 01/26/2018 TIME SPENT: 35 minutes of critical care time. SUBJECTIVE: The patient remains intubated after her operation yesterday. There have been no problems overnight to speak of. She has not required any sedation and she follows all commands, and has passed a spontaneous breathing trial. OBJECTIVE: VITAL SIGNS: Her temperature is 98.4, pulse is 83, and blood pressure 119/50. Intake for 24 hours 2755, output 660. HEENT: Pupils react. Sclerae are anicteric. Oropharynx clear. NECK: No JVD. LUNGS: Clear anteriorly. CARDIOVASCULAR: S1 and S2, regular. No murmur. ABDOMEN: Soft, nontender. EXTREMITIES: No clubbing or clubbing, but she has trace edema throughout. LABORATORY DATA: White blood cell count 12.6, hematocrit 28.2, and platelet count 95. PH of 7.50, pCO2 of 30, pO2 of 124 on SIMV 12, tidal volume 450, PEEP 5, PSV 10 FiO2 of 40%. Sodium 137, potassium 4.3, chloride 115, CO2 of 18, BUN 25, creatinine 1.0, and glucose 110. Chest x-ray shows no acute findings. Endotracheal tube was in good position. ASSESSMENT: 1. Sepsis syndrome thought secondary to infected hip hardware. 2. Acute respiratory failure requiring mechanical ventilation - the patient left intubated postoperatively. 3. Atrial fibrillation with rapid ventricular response - now in sinus rhythm. 4. Chronic right shoulder subluxation. 5. Status post transcutaneous aortic valve replacement. PLAN: The patient will be extubated and observed. She is to continue on IV antibiotics. Pain management per Orthopedic Service. Job ID: [id number] [facility]
[2018-01-26] MEDS ORDERED: Magnesium 2 GM/50 ML 2 GM in Premix Bag 1 BAG IVPB SCH (08:45)
[2018-01-26] MEDS: Nystatin Powder 15 GM BOT TOP SCH ×2 (09:00→21:11)
--- NOTE | 2018-01-26 09:01 | RAD ---
CHEST 1 VIEW: Date: 01/26/18 INDICATION: History of intubation. COMPARISON: Prior study dated 01/19/18. IMPRESSION: Patient has been intervally intubated since the comparison study. ET tube tip resides 3.7 cm from the mary. There is left-sided pleural parenchymal opacity. Right lung is clear. No pneumothorax is lc dent. Aortic valvular prosthesis is unchanged. Osseous structures are similar appearing. Scoliosis is similar appearing. Diffuse osteopenia is unchanged. The anteriorly subluxed right glenoh umeral joint is unchanged. POS: [facility]
[2018-01-26] MEDS: traMADol HCl 50 MG TAB PO PRN ×3 (09:04→21:16)
[2018-01-26] MEDS: Acetaminophen 325 MG TAB PO SCH ×3 (09:08→21:10)
[2018-01-26] MEDS: Magnesium Oxide 400 MG TAB PO SCH (09:16)
[2018-01-26] MEDS: Multivit, Therapeutic 1 TAB PO SCH ×2 (09:16→09:17)
[2018-01-26] MEDS: Saccharomyces boulardii 250 MG CAP PO SCH ×2 (09:16→21:11)
[2018-01-26] MEDS: Folic Acid 1 MG TAB PO SCH (09:16)
[2018-01-26] MEDS: Senokot S 8.6-50 MG TAB PO SCH ×2 (09:16→21:10)
[2018-01-26] MEDS: Citalopram 20 MG TAB PO SCH (09:17)
[2018-01-26] MEDS: Famotidine 20 MG TAB PO SCH (09:17)
[2018-01-26] MEDS ORDERED: Fentanyl 100 MCG/2 ML VIAL SLOW IVP PRN (09:30)
[2018-01-26] MEDS ORDERED: Acetaminophen/Codeine 30-300mg Tablet PO PRN (09:31)
[2018-01-26] MEDS ORDERED: Ketorolac Tromethamine 30 MG/ML VIAL IVP PRN (09:33)
[2018-01-26] MEDS: rOPINIRole HCl 0.25 MG TAB PO SCH ×3 (09:52→21:11)
[2018-01-26] MEDS: pyridOXINE 50 MG (B6) TAB PO SCH (09:52)
[2018-01-26] MEDS: Cyanocobalamin (Vitamin B-12) 1,000 MCG TAB PO SCH (09:57)
[2018-01-26] MEDS ORDERED: Furosemide 20 MG/2 ML VIAL SLOW IVP SCH (15:45)
[2018-01-26] MEDS ORDERED: Potassium Chloride 20 MEQ TAB PO SCH (17:00)
--- NOTE | 2018-01-26 17:57 | PRG ---
DATE OF SERVICE: 01/26/2018 SUBJECTIVE: Ms. Sanchez is doing okay from a cardiac standpoint. OBJECTIVE: VITAL SIGNS: Her blood pressure was low earlier, but now to 127/49. Pulse is 68 and regular. LUNGS: Clear. CARDIAC: Normal S1. Normal S2. ABDOMEN: Soft and nontender. EXTREMITIES: [id number] edema. ASSESSMENT: 1. Status post hip removal. 2. Recent bacteremia. 3. Transcutaneous aortic valve replacement last summer. 4. Coronary artery disease, stable. 5. Volume overload. PLAN: 1. To start the diuresis. 2. Reduce amiodarone dose. 3. It would be ideal to be monitored on telemetry at least until tomorrow. She should stable at that point. Could reduce the amiodarone to twice a day and change the furosemide to oral and go to surgery and Dr. Barajas rounding this weekend. Job ID: [id number]
[2018-01-26] MEDS: Levothyroxine 150 MCG TAB PO SCH (20:21)
[2018-01-26] MEDS: Dextrose 5 %-0.45 % NaCl 1,000 ML IV SCH (21:10)
[2018-01-26] MEDS: Acetaminophen/Codeine 30-300mg Tablet PO PRN (21:15)
--- NOTE | 2018-01-26 21:15 | PDOC.PN ---
- Subjective Encounter Start Date: 01/26/18 Encounter Start Time: 09:45 Patient seen and examined for Sepsis. Extubated. Rt hip pain +. No other complaints. No overnight events - Objective Resuscitation Status - Order Detail: 01/23/18 11:56 Resuscitation Status Routine Resuscitation Status: DNAR: NO Resuscitation Discussed with: confirmed with DPOA MAR Reviewed: Yes Vital Signs & Weight: Vital Signs (12 hours) Temp Pulse Pulse BP BP 01/26/18 16:00 98.0 F 01/26/18 12:00 98.3 F 01/26/18 11:05 79 80 93/40 L 94/38 L Weight Admit Weight 191 lb 12.835 oz Weight 188 lb 6.4 oz Most Recent Monitor Data Heart Rate from ECG 63 NIBP 95/38 NIBP BP-Mean 57 Respiration from ECG 19 SpO2 100 I&O: 01/25/18 01/26/18 01/27/18 06:59 06:59 06:59 Intake Total 2755 400 683 Output Total 705 660 Balance 2755 -305 23 Result Diagrams: 01/26/18 05:30 01/26/18 05:30 Additional Labs: Accuchecks 01/26/18 01/26/18 14:51 05:54 POC Glucose 98 102 EKG Reviewed by me: Yes (Tele SR) Phys Exam - Physical Examination Constitutional: NAD Respiratory: no wheezing, no rhonchi Dec AE at bases Cardiovascular: RRR, no rub Gastrointestinal: soft, positive bowel sounds Psychiatric: A&O x 3 Dx/Plan - Plan DVT proph w/SCDs 1. Sepsis with acute organ dysfunction secondary to Ecoli UTI /Staph bacteremia 2. Elevated troponins secondary to demand ischemia/type 2 myocardial infarction with Afib with RVR - in SR 3. Acute kidney injury on chronic kidney disease stage 3. improving 4. Metabolic acidosis/lactic acidosis. 5. 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 Coronary artery disease, status post stent placement on aspirin and Plavix. 7. Aortic stenosis with recent transcatheter aortic valve replacement . 8. Acute post op resp failure extubated 01/26 9. Diet controlled diabetes mellitus type 2. 10. Mild intermittent asthma. 11. Hypothyroidism. 12. Diverticulosis. 13. Hyperlipidemia. 14. Degenerative joint disease/History of cervical cancer/Chronic anemia. Macrocytic/Thrombocytopenia, probably secondary to sepsis. improving 15. Mild protein calorie malnutrition/Skin tear with bleeding/Right shoulder dislocation ? chronic/Macular degeneration. PLAN: Cont Ancef for Staph bacteremia Cont Amiodarone per Cardiology PICC line on Monday SNF Eval Cont ASA/Plavix and other meds as below No Heparin/Lovenox due to thrombocytopenia AM labs Review of Systems - Review of Systems Cardiovascular: negative: chest pain, palpitations, orthopnea, paroxysmal nocturnal dyspnea, edema, light headedness, other Gastrointestinal: negative: Nausea, Vomiting, Abdominal Pain, Diarrhea, Constipation, Melena, Hematochezia, Other - Medications/Allergies Allergies/Adverse Reactions: Allergies Allergy/AdvReac Type Severity Reaction Status Date / Time Penicillins Allergy Verified 01/19/18 20:43 Medications: Current Medications Acetaminophen (Tylenol) 650 mg PO Q4H PRN PRN Reason: Headache/Fever or Mild Pain Last Admin: 01/24/18 03:29 Dose: 650 mg Acetaminophen (Tylenol) 650 mg PO TID [facility] Last Admin: 01/26/18 15:12 Dose: 650 mg Acetaminophen/Codeine Phosphate (Tylenol #3) 1 tab PO Q4H PRN PRN Reason: Moderate Pain (4-6) Acetaminophen/Codeine Phosphate (Tylenol #3) 2 tab PO Q4H PRN PRN Reason: PAIN-SEVERE Albuterol/Ipratropium (Duoneb) 3 ml NEB Q6H PRN PRN Reason: SOB/WHEEZE Last Admin: 01/24/18 01:41 Dose: 3 ml Amiodarone HCl (Cordarone) 200 mg PO TID [facility] Last Admin: 01/26/18 20:27 Dose: Not Given Aspirin (Aspirin Chewable) 81 mg PO DAILY [facility] Last Admin: 01/26/18 09:16 Dose: 81 mg Atorvastatin Calcium (Lipitor) 10 mg PO HS [facility] Last Admin: 01/26/18 04:23 Dose: Not Given Bisacodyl (Dulcolax) 10 mg HI DAILYPRN PRN PRN Reason: Constipation Cefazolin Sodium/Dextrose (Ancef 2 Gm/50 Ml) 2 gm IVPB Q8HR [facility] Last Admin: 01/26/18 15:11 Dose: 2 gm Citalopram Hydrobromide (Celexa) 20 mg PO DAILY [facility] Last Admin: 01/26/18 09:17 Dose: 20 mg Cyanocobalamin (Vitamin B-12) 1,000 mcg PO DAILY [facility] Last Admin: 01/26/18 09:57 Dose: 1,000 mcg Dextrose/Water (Dextrose 50%) 25 gm SLOW IVP PRN PRN PRN Reason: Hypoglycemia Famotidine (Pepcid) 20 mg PO DAILY [facility] Last Admin: 01/26/18 09:17 Dose: 20 mg Fentanyl (Sublimaze) 50 mcg SLOW IVP Q2H PRN PRN Reason: Moderate to Severe Pain (6-10) Last Admin: 01/26/18 09:44 Dose: 50 mcg Folic Acid (Folvite) 1 mg PO DAILY [facility] Last Admin: 01/26/18 09:16 Dose: 1 mg Furosemide (Lasix) 20 mg SLOW IVP DAILY [facility] Glucagon (Glucagon) 1 mg IM PRN PRN PRN Reason: Hypoglycemia Dextrose/Water (D5w) 1,000 mls @ 0 mls/hr IV .Q0M PRN PRN Reason: Hypoglycemia Dextrose/Sodium Chloride (D5 1/2 Ns) 1,000 mls @ 30 mls/hr IV .Q24H [facility] Last Admin: 01/25/18 22:20 Dose: Not Given Insulin Human Regular (Humulin R) 0 units SC .MILD SLIDING SCALE PRN PRN Reason: Mild Correctional Scale Last Admin: 01/24/18 16:30 Dose: 3 units Insulin Human Regular (Humulin R) 0 units SC .BEDTIME SLIDING SC PRN PRN Reason: Bedtime Correctional Scale Isosorbide Dinitrate (Isordil) 5 mg PO BID [facility] Last Admin: 01/26/18 20:26 Dose: Not Given Ketorolac Tromethamine (Toradol) 7.5 mg IVP Q6H PRN PRN Reason: Pain Stop: 01/31/18 09:34 Last Admin: 01/26/18 15:19 Dose: 7.5 mg Labetalol HCl (Normodyne) 10 mg SLOW IVP Q4H PRN PRN Reason: Systolic BP > 180 Levothyroxine Sodium (Synthroid) 150 mcg PO 0600 [facility] Last Admin: 01/26/18 20:21 Dose: Not Given Magnesium Oxide (Magnesium Oxide) 400 mg PO DAILY [facility] Last Admin: 01/26/18 09:16 Dose: 400 mg Multivitamins (Theragran) 1 tab PO DAILY [facility] Last Admin: 01/26/18 09:16 Dose: 1 tab Nitroglycerin (Nitrostat) 0.4 mg PO Q5MIN PRN PRN Reason: Chest Pain Nystatin (Mycostatin Powder) 0 gm TOP BID [facility] Last Admin: 01/26/18 09:00 Dose: Not Given Ondansetron HCl (Zofran Odt) 4 mg PO Q6H PRN PRN Reason: Nausea/Vomiting Ondansetron HCl (Zofran) 4 mg IVP Q6H PRN PRN Reason: Nausea/Vomiting Potassium Chloride (Klor-Con 10) 10 meq PO BID-[facility] Pyridoxine HCl (Vitamin B 6) 50 mg PO DAILY [facility] Last Admin: 01/26/18 09:52 Dose: 50 mg Ropinirole HCl (Requip) 0.25 mg PO TID [facility] Last Admin: 01/26/18 15:27 Dose: 0.25 mg Saccharomyces Boulardii (Florastor) 250 mg PO BID [facility] Last Admin: 01/26/18 09:16 Dose: 250 mg Senna/Docusate Sodium (Senokot S) 1 tab PO BID [facility] Last Admin: 01/26/18 09:16 Dose: 1 tab Sodium Chloride (Flush - Normal Saline) 10 ml IVF PRN PRN PRN Reason: Saline Flush Last Admin: 01/24/18 08:37 Dose: 10 ml Sodium Chloride (Flush - Normal Saline) 10 ml IVF PRN PRN PRN Reason: Saline Flush Tramadol HCl (Ultram) 100 mg PO Q4H PRN PRN Reason: Mild-Moderate Pain (1-5) Tramadol HCl (Ultram) 50 mg PO Q4H PRN PRN Reason: Mild Pain (1-3) Last Admin: 01/26/18 15:18 Dose: 50 mg
[2018-01-27] MEDS: CEFAZOLIN 2 GM/50 ML BAG IVPB SCH ×3 (06:03→23:22)
[2018-01-27] MEDS: Acetaminophen/Codeine 30-300mg Tablet PO PRN (06:03)
[2018-01-27] MEDS: Levothyroxine 150 MCG TAB PO SCH (06:03)
[2018-01-27 07:10] LABS: Anion Gap 9 mmol/L (10-20); BUN (Urea Nitrogen) 26 mg/dL (9.8-20.1); Calc. Creatinine Clearance 48 mL/min (70-130); Calcium 8.3 mg/dL (7.8-10.44); Carbon Dioxide 21 mmol/L (23-31); Chloride 111 mmol/L (98-107); Estimated GFR-MDRD 43; Glucose 73 mg/dL (83-110); Magnesium 1.9 mg/dL (1.6-2.6); Potassium 4.7 mmol/L (3.5-5.1); Sodium 136 mmol/L (136-145)
[2018-01-27 07:15] LABS: Hemoglobin 9.5 g/dL (12.0-16.0); Mean Corpuscular HGB CONC 32.6 g/dL (32.0-36.0); Mean Corpuscular Hemoglobin 31.7 pg (27.0-31.0); Mean Corpuscular Volume 97.3 fL (78.0-98.0); Mean Platelet Volume 9.1 fL (7.4-10.4); Platelet Count 122 thou/uL (130-400); RBC Distribution Width 16.9 % (11.5-14.5); Red Blood Cell (RBC) Count 3.01 mill/uL (4.20-5.40); White Blood Cell (WBC) Count 13.1 thou/uL (4.8-10.8)
[2018-01-27 07:46] LABS: Band 4 % (5-11); Eosinophils 6 % (0-10); Hypochromia SLIGHT = 6-15 cells (100X) (0-5/hpf); Lymphocytes 10 % (21-51); MDiff Complete? YES; Macrocytosis SLIGHT = 6-15 cells (100X) (0-5/hpf); Microcytosis SLIGHT = 6-15 cells (100X) (0-5/hpf); Monocytes 4 % (0-10); Neutrophil 75 % (42-75); Platelet Morphology Comment Appears Decreased; Polychromasia SLIGHT = 2-3 cells (100X) (0-2/hpf)
--- NOTE | 2018-01-27 08:11 | RAD ---
CHEST 1 VIEW: Date: 01/27/18 INDICATION: Intubation. COMPARISON: Prior exam dated 01/26/18. IMPRESSION: There has been interval extubation. Aortic valvular prosthesis is similar appearing. Left basal pleur al parenchymal opacity persists. No pneumothorax is evident. Continued follow-up is recommended. POS: [facility]
[2018-01-27] MEDS: Nystatin Powder 15 GM BOT TOP SCH ×3 (09:00→21:09)
--- NOTE | 2018-01-27 09:53 | PRG ---
DATE OF SERVICE: 01/27/2018 SUBJECTIVE: This patient was successfully extubated yesterday. This morning, she is awake, alert, does not appear to be in any distress. OBJECTIVE: VITAL SIGNS: Temperature 97.6, pulse 72, and blood pressure 111/74. 24-hour intake 898 mL, output 1210 mL. HEENT: Unremarkable. NECK: No JVD. CHEST: Clear without wheezing. CARDIAC: S1 and S2 regular with 2/6 systolic murmur at the left sternal border. ABDOMEN: Soft, nontender. EXTREMITIES: No clubbing, cyanosis, or edema. She has a wound VAC over her right hip. LABORATORY DATA: White blood cell count 13, hematocrit 29.3, and platelet count 122. Sodium 136, potassium 4.7, chloride 111, CO2 of 21, BUN 26, creatinine 1.2, and glucose 73. IMAGING STUDIES: Chest x-ray demonstrates fairly clear lung jacques bilaterally. ASSESSMENT: 1. Sepsis secondary to infected hip hardware - improving with antibiotics and after removal of the hip prosthesis. 2. Status post acute respiratory failure, requiring mechanical ventilation during the postoperative period. 3. Atrial fibrillation, now controlled. PLAN: The patient can be transferred out to the telemetry floor. She will continue on antibiotics. Job ID: [id number]
[2018-01-27] MEDS: Acetaminophen 325 MG TAB PO SCH ×3 (10:47→21:08)
[2018-01-27] MEDS: Potassium Chloride 10 MEQ TAB PO SCH ×2 (10:47→16:52)
[2018-01-27] MEDS: Citalopram 20 MG TAB PO SCH (10:48)
[2018-01-27] MEDS: Senokot S 8.6-50 MG TAB PO SCH ×2 (10:48→21:08)
[2018-01-27] MEDS: Amiodarone 200 MG TAB PO SCH ×3 (10:48→21:08)
[2018-01-27] MEDS: Famotidine 20 MG TAB PO SCH (10:48)
[2018-01-27] MEDS: Magnesium Oxide 400 MG TAB PO SCH (10:48)
[2018-01-27] MEDS: Multivit, Therapeutic 1 TAB PO SCH (10:48)
[2018-01-27] MEDS: Folic Acid 1 MG TAB PO SCH (10:49)
[2018-01-27] MEDS: Furosemide 20 MG/2 ML VIAL SLOW IVP SCH (10:49)
[2018-01-27] MEDS: rOPINIRole HCl 0.25 MG TAB PO SCH ×3 (10:49→21:08)
[2018-01-27] MEDS: pyridOXINE 50 MG (B6) TAB PO SCH (11:00)
[2018-01-27] MEDS: Saccharomyces boulardii 250 MG CAP PO SCH ×2 (11:00→21:09)
[2018-01-27] MEDS: Isosorbide Dinitrate 5 MG TAB PO SCH ×3 (11:00→21:09)
[2018-01-27] MEDS: Cyanocobalamin (Vitamin B-12) 1,000 MCG TAB PO SCH (11:00)
[2018-01-27] MEDS: traMADol HCl 50 MG TAB PO PRN ×2 (11:28→17:24)
--- NOTE | 2018-01-27 14:58 | PDOC.PN ---
- Subjective Encounter Start Date: 01/27/18 Encounter Start Time: 10:30 Patient seen and examined for Sepsis. Pain controlled. No new complaints. No overnight events - Objective Resuscitation Status - Order Detail: 01/23/18 11:56 Resuscitation Status Routine Resuscitation Status: DNAR: NO Resuscitation Discussed with: confirmed with DPOA MAR Reviewed: Yes Vital Signs & Weight: Vital Signs (12 hours) Temp Pulse Ox 01/27/18 12:00 98.0 F 01/27/18 08:00 97.9 F 100 01/27/18 04:00 97.6 F Weight Admit Weight 191 lb 12.835 oz Weight 188 lb 6.4 oz Most Recent Monitor Data Heart Rate from ECG 75 NIBP 99/55 NIBP BP-Mean 94 Respiration from ECG 21 SpO2 100 I&O: 01/26/18 01/27/18 01/28/18 06:59 06:59 06:59 Intake Total 400 898 480 Output Total 705 1210 550 Balance -305 -312 -70 Result Diagrams: 01/27/18 06:43 01/27/18 06:43 Additional Labs: Accuchecks 01/27/18 01/26/18 01/26/18 12:19 21:31 14:51 POC Glucose 89 80 98 EKG Reviewed by me: Yes (Tele SR) Phys Exam - Physical Examination Constitutional: NAD Respiratory: no wheezing, no rhonchi Cardiovascular: RRR, no rub Gastrointestinal: soft, non-tender, positive bowel sounds Musculoskeletal: no edema Neurological: moves all 4 limbs Dx/Plan - Plan DVT proph w/SCDs 1. Sepsis with acute organ dysfunction secondary to Ecoli UTI /Staph bacteremia 2. Elevated troponins secondary to demand ischemia/type 2 myocardial infarction with Afib with RVR - in SR 3. Acute kidney injury on chronic kidney disease stage 3. improving 4. Metabolic acidosis/lactic acidosis. 5. 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 Coronary artery disease, status post stent placement on aspirin and Plavix. 7. Aortic stenosis with recent TAVR replacement . 8. Acute postop resp failure extubated 01/26 9. Diet controlled diabetes mellitus type 2. 10. Mild intermittent asthma. 11. Hypothyroidism. 12. Diverticulosis. 13. Hyperlipidemia. 14. Degenerative joint disease/History of cervical cancer/Chronic anemia. Macrocytic/Thrombocytopenia, probably secondary to sepsis. improving 15. Mild protein calorie malnutrition/Skin tear with bleeding/Right shoulder dislocation ? chronic/Macular degeneration. PLAN: PICC line on monday Cont Ancef for Staph bacteremia Cont Amiodarone per Cardiology SNF Eval on ASA/Plavix Cont other meds as below No Heparin/Lovenox due to thrombocytopenia AM labs Review of Systems - Review of Systems Respiratory: negative: Cough, Dry, Shortness of Breath, Hemoptysis, SOB with Excertion, Pleuritic Pain, Sputum, Wheezing Cardiovascular: negative: chest pain, palpitations, orthopnea, paroxysmal nocturnal dyspnea, edema, light headedness, other - Medications/Allergies Allergies/Adverse Reactions: Allergies Allergy/AdvReac Type Severity Reaction Status Date / Time Penicillins Allergy Verified 01/19/18 20:43 Medications: Current Medications Acetaminophen (Tylenol) 650 mg PO Q4H PRN PRN Reason: Headache/Fever or Mild Pain Last Admin: 01/24/18 03:29 Dose: 650 mg Acetaminophen (Tylenol) 650 mg PO TID [facility] Last Admin: 01/27/18 10:47 Dose: 650 mg Acetaminophen/Codeine Phosphate (Tylenol #3) 1 tab PO Q4H PRN PRN Reason: Moderate Pain (4-6) Last Admin: 01/27/18 06:03 Dose: 1 tab Acetaminophen/Codeine Phosphate (Tylenol #3) 2 tab PO Q4H PRN PRN Reason: PAIN-SEVERE Albuterol/Ipratropium (Duoneb) 3 ml NEB Q6H PRN PRN Reason: SOB/WHEEZE Last Admin: 01/24/18 01:41 Dose: 3 ml Amiodarone HCl (Cordarone) 200 mg PO TID [facility] Last Admin: 01/27/18 10:48 Dose: 200 mg Aspirin (Aspirin Chewable) 81 mg PO DAILY [facility] Last Admin: 01/27/18 10:48 Dose: 81 mg Atorvastatin Calcium (Lipitor) 10 mg PO HS [facility] Last Admin: 01/26/18 21:10 Dose: 10 mg Bisacodyl (Dulcolax) 10 mg AR DAILYPRN PRN PRN Reason: Constipation Cefazolin Sodium/Dextrose (Ancef 2 Gm/50 Ml) 2 gm IVPB Q8HR [facility] Last Admin: 01/27/18 06:03 Dose: 2 gm Citalopram Hydrobromide (Celexa) 20 mg PO DAILY [facility] Last Admin: 01/27/18 10:48 Dose: 20 mg Cyanocobalamin (Vitamin B-12) 1,000 mcg PO DAILY [facility] Last Admin: 01/27/18 11:00 Dose: 1,000 mcg Dextrose/Water (Dextrose 50%) 25 gm SLOW IVP PRN PRN PRN Reason: Hypoglycemia Famotidine (Pepcid) 20 mg PO DAILY [facility] Last Admin: 01/27/18 10:48 Dose: 20 mg Fentanyl (Sublimaze) 50 mcg SLOW IVP Q2H PRN PRN Reason: Moderate to Severe Pain (6-10) Last Admin: 01/26/18 09:44 Dose: 50 mcg Folic Acid (Folvite) 1 mg PO DAILY [facility] Last Admin: 01/27/18 10:49 Dose: 1 mg Furosemide (Lasix) 20 mg SLOW IVP DAILY [facility] Last Admin: 01/27/18 10:49 Dose: 20 mg Glucagon (Glucagon) 1 mg IM PRN PRN PRN Reason: Hypoglycemia Dextrose/Water (D5w) 1,000 mls @ 0 mls/hr IV .Q0M PRN PRN Reason: Hypoglycemia Dextrose/Sodium Chloride (D5 1/2 Ns) 1,000 mls @ 30 mls/hr IV .Q24H [facility] Last Admin: 01/26/18 21:10 Dose: Not Given Insulin Human Regular (Humulin R) 0 units SC .MILD SLIDING SCALE PRN PRN Reason: Mild Correctional Scale Last Admin: 01/24/18 16:30 Dose: 3 units Insulin Human Regular (Humulin R) 0 units SC .BEDTIME SLIDING SC PRN PRN Reason: Bedtime Correctional Scale Isosorbide Dinitrate (Isordil) 5 mg PO BID [facility] Last Admin: 01/27/18 11:03 Dose: Not Given Ketorolac Tromethamine (Toradol) 7.5 mg IVP Q6H PRN PRN Reason: Pain Stop: 01/31/18 09:34 Last Admin: 01/26/18 15:19 Dose: 7.5 mg Labetalol HCl (Normodyne) 10 mg SLOW IVP Q4H PRN PRN Reason: Systolic BP > 180 Levothyroxine Sodium (Synthroid) 150 mcg PO 0600 [facility] Last Admin: 01/27/18 06:03 Dose: 150 mcg Magnesium Oxide (Magnesium Oxide) 400 mg PO DAILY [facility] Last Admin: 01/27/18 10:48 Dose: 400 mg Multivitamins (Theragran) 1 tab PO DAILY [facility] Last Admin: 01/27/18 10:48 Dose: 1 tab Nitroglycerin (Nitrostat) 0.4 mg PO Q5MIN PRN PRN Reason: Chest Pain Nystatin (Mycostatin Powder) 0 gm TOP BID [facility] Last Admin: 01/27/18 09:00 Dose: Not Given Ondansetron HCl (Zofran Odt) 4 mg PO Q6H PRN PRN Reason: Nausea/Vomiting Ondansetron HCl (Zofran) 4 mg IVP Q6H PRN PRN Reason: Nausea/Vomiting Potassium Chloride (Klor-Con 10) 10 meq PO BID-[facility] Last Admin: 01/27/18 10:47 Dose: 10 meq Pyridoxine HCl (Vitamin B 6) 50 mg PO DAILY [facility] Last Admin: 01/27/18 11:00 Dose: 50 mg Ropinirole HCl (Requip) 0.25 mg PO TID [facility] Last Admin: 01/27/18 10:49 Dose: 0.25 mg Saccharomyces Boulardii (Florastor) 250 mg PO BID [facility] Last Admin: 01/27/18 11:00 Dose: 250 mg Senna/Docusate Sodium (Senokot S) 1 tab PO BID [facility] Last Admin: 01/27/18 10:48 Dose: 1 tab Sodium Chloride (Flush - Normal Saline) 10 ml IVF PRN PRN PRN Reason: Saline Flush Last Admin: 01/24/18 08:37 Dose: 10 ml Sodium Chloride (Flush - Normal Saline) 10 ml IVF PRN PRN PRN Reason: Saline Flush Tramadol HCl (Ultram) 100 mg PO Q4H PRN PRN Reason: Mild-Moderate Pain (1-5) Tramadol HCl (Ultram) 50 mg PO Q4H PRN PRN Reason: Mild Pain (1-3) Last Admin: 01/27/18 11:28 Dose: 50 mg
--- NOTE | 2018-01-27 18:00 | EKG ---
Test Reason : Blood Pressure : / mmHG Vent. Rate : 089 BPM Atrial Rate : 089 BPM P-R Int : 152 ms QRS Dur : 136 ms QT Int : 426 ms P-R-T Axes : 114 064 152 degrees QTc Int : 518 ms Normal sinus rhythm Right bundle branch block Inferior infarct , age undetermined Abnormal ECG Confirmed by RADHA HORTA, ISAURO ([id number]), video effects editor VIRGIL HANEY ([id number]) on 01/27/2018 6:00:14 PM Referred By: Confirmed By:ISAURO GARCIA MD
--- NOTE | 2018-01-27 18:00 | EKG ---
Test Reason : Blood Pressure : / mmHG Vent. Rate : 087 BPM Atrial Rate : 087 BPM P-R Int : 146 ms QRS Dur : 122 ms QT Int : 416 ms P-R-T Axes : 057 090 059 degrees QTc Int : 500 ms Normal sinus rhythm Right bundle branch block Abnormal ECG Confirmed by RADHA HORTA, ISAURO ([id number]), publications editor VIRGIL HANEY ([id number]) on 01/27/2018 6:00:12 PM Referred By: Confirmed By:ISAURO GARCIA MD
--- NOTE | 2018-01-27 18:00 | EKG ---
Test Reason : REPEAT Blood Pressure : / mmHG Vent. Rate : 096 BPM Atrial Rate : 096 BPM P-R Int : 154 ms QRS Dur : 136 ms QT Int : 408 ms P-R-T Axes : 053 041 002 degrees QTc Int : 515 ms Sinus rhythm with Premature atrial complexes Right bundle branch block Abnormal ECG Confirmed by RADHA HORTA, ISAURO ([id number]), news videotape editor VIRGIL HANEY ([id number]) on 01/27/2018 6:00:14 PM Referred By: Confirmed By:ISAURO GARCIA MD
[2018-01-27] MEDS: Atorvastatin Calcium 10 MG TAB PO SCH (21:08)
[2018-01-28] MEDS: CEFAZOLIN 2 GM/50 ML BAG IVPB SCH ×3 (05:50→21:01)
[2018-01-28] MEDS: Levothyroxine 150 MCG TAB PO SCH (05:50)
[2018-01-28] MEDS: traMADol HCl 50 MG TAB PO PRN (05:55)
[2018-01-28] MEDS ORDERED: Senokot 8.6 MG TAB PO PRN (06:54)
[2018-01-28 07:22] LABS: Hemoglobin 9.9 g/dL (12.0-16.0); Mean Corpuscular HGB CONC 32.2 g/dL (32.0-36.0); Mean Platelet Volume 8.5 fL (7.4-10.4); Platelet Count 154 thou/uL (130-400); RBC Distribution Width 16.9 % (11.5-14.5); White Blood Cell (WBC) Count 14.4 thou/uL (4.8-10.8)
[2018-01-28 07:30] LABS: Anion Gap 11 mmol/L (10-20); BUN (Urea Nitrogen) 26 mg/dL (9.8-20.1); Calc. Creatinine Clearance 46 mL/min (70-130); Calcium 7.8 mg/dL (7.8-10.44); Carbon Dioxide 19 mmol/L (23-31); Chloride 109 mmol/L (98-107); Estimated GFR-MDRD 41; Glucose 77 mg/dL (83-110); Potassium 4.9 mmol/L (3.5-5.1); Sodium 134 mmol/L (136-145)
--- NOTE | 2018-01-28 08:05 | RAD ---
KUB: INDICATIONS: Abdominal pain. COMPARISON: None. FINDINGS/IMPRESSION: The bowel gas pattern is unobstructed. There is hernia mesh overlying the midline abdomen. There ar e cholecystectomy clips within the right upper quadrant. There is a right total hip replacement. Th ere is diffuse osteopenia. Levoscoliosis of the lumbar spine is present. POS: [facility]
[2018-01-28] MEDS: Folic Acid 1 MG TAB PO SCH (09:10)
[2018-01-28] MEDS: Citalopram 20 MG TAB PO SCH (09:10)
[2018-01-28] MEDS: Isosorbide Dinitrate 5 MG TAB PO SCH ×2 (09:10→20:55)
[2018-01-28] MEDS: Acetaminophen 325 MG TAB PO SCH ×3 (09:10→20:55)
[2018-01-28] MEDS: rOPINIRole HCl 0.25 MG TAB PO SCH ×3 (09:11→20:55)
[2018-01-28] MEDS: Furosemide 20 MG/2 ML VIAL SLOW IVP SCH (09:11)
[2018-01-28] MEDS: Famotidine 20 MG TAB PO SCH (09:11)
[2018-01-28] MEDS: Amiodarone 200 MG TAB PO SCH ×3 (09:11→20:56)
[2018-01-28] MEDS: Magnesium Oxide 400 MG TAB PO SCH (09:11)
[2018-01-28] MEDS: Multivit, Therapeutic 1 TAB PO SCH (09:11)
[2018-01-28] MEDS: Cyanocobalamin (Vitamin B-12) 1,000 MCG TAB PO SCH (09:11)
[2018-01-28] MEDS: pyridOXINE 50 MG (B6) TAB PO SCH (09:11)
[2018-01-28] MEDS: Saccharomyces boulardii 250 MG CAP PO SCH ×2 (09:11→20:55)
[2018-01-28] MEDS: Senokot S 8.6-50 MG TAB PO SCH ×2 (09:11→20:56)
[2018-01-28] MEDS: Nystatin Powder 15 GM BOT TOP SCH ×2 (09:12→21:05)
[2018-01-28 09:20] LABS: Band 2 % (5-11); Eosinophils 6 % (0-10); Lymphocytes 5 % (21-51); Monocytes 11 % (0-10); Neutrophil 76 % (42-75)
[2018-01-28 09:22] LABS: MDiff Complete? YES
--- NOTE | 2018-01-28 16:06 | PDOC.PN ---
- Subjective Encounter Start Date: 01/28/18 Encounter Start Time: 08:45 Patient seen and examined for Sepsis. No new complaints. Overnight events noted. Abd pain improving. - Objective Resuscitation Status - Order Detail: 01/23/18 11:56 Resuscitation Status Routine Resuscitation Status: DNAR: NO Resuscitation Discussed with: confirmed with DPOA MAR Reviewed: Yes Vital Signs & Weight: Vital Signs (12 hours) Temp Pulse Resp BP Pulse Ox 01/28/18 11:46 98.2 F 73 16 122/65 94 L 01/28/18 09:10 94 L 01/28/18 07:41 98.6 F 75 14 126/58 L 94 L Weight Admit Weight 191 lb 12.835 oz Weight 188 lb 4 oz Most Recent Monitor Data Heart Rate from ECG 70 NIBP 92/80 NIBP BP-Mean 84 Respiration from ECG 14 SpO2 100 I&O: 01/27/18 01/28/18 01/29/18 06:59 06:59 06:59 Intake Total 898 1200 Output Total 1210 1475 Balance -312 -275 Result Diagrams: 01/28/18 06:11 01/28/18 06:11 Additional Labs: Accuchecks 01/28/18 01/27/18 01/27/18 10:52 21:26 16:41 POC Glucose 110 97 90 Radiology Reviewed by me: Yes (KUB - No obstruction) EKG Reviewed by me: Yes (Tele SR) Phys Exam - Physical Examination Constitutional: NAD Respiratory: no wheezing, no rhonchi Cardiovascular: RRR, no rub Gastrointestinal: soft, non-tender, positive bowel sounds mild gen tenderness, no rebound/guarding Musculoskeletal: no edema Neurological: moves all 4 limbs Psychiatric: A&O x 3 Dx/Plan - Plan DVT proph w/SCDs 1. Sepsis with acute organ dysfunction secondary to Ecoli UTI /Staph bacteremia 2. Elevated troponins secondary to demand ischemia/type 2 myocardial infarction with Afib with RVR - in SR 3. Acute kidney injury on chronic kidney disease stage 3. improving 4. Metabolic acidosis/lactic acidosis. 5. 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 Coronary artery disease, status post stent placement on aspirin and Plavix. 7. Aortic stenosis with recent TAVR replacement . 8. Acute postop resp failure extubated 01/26 9. Diet controlled diabetes mellitus type 2. 10. Mild intermittent asthma. 11. Hypothyroidism. 12. Diverticulosis. 13. Hyperlipidemia. 14. Degenerative joint disease/History of cervical cancer/Chronic anemia. Macrocytic/Thrombocytopenia, probably secondary to sepsis. improving 15. Mild protein calorie malnutrition/Skin tear with bleeding/Right shoulder dislocation ? chronic/Macular degeneration. PLAN: PICC line in AM Cont Ancef SNF Eval on ASA/Plavix Cont other meds as below No Heparin/Lovenox due to thrombocytopenia AM labs Review of Systems - Review of Systems Respiratory: negative: Cough, Dry, Shortness of Breath, Hemoptysis, SOB with Excertion, Pleuritic Pain, Sputum, Wheezing Cardiovascular: negative: chest pain, palpitations, orthopnea, paroxysmal nocturnal dyspnea, edema, light headedness, other - Medications/Allergies Allergies/Adverse Reactions: Allergies Allergy/AdvReac Type Severity Reaction Status Date / Time Penicillins Allergy Verified 01/19/18 20:43 Medications: Current Medications Acetaminophen (Tylenol) 650 mg PO Q4H PRN PRN Reason: Headache/Fever or Mild Pain Last Admin: 01/24/18 03:29 Dose: 650 mg Acetaminophen (Tylenol) 650 mg PO TID [facility] Last Admin: 01/28/18 14:27 Dose: 650 mg Acetaminophen/Codeine Phosphate (Tylenol #3) 1 tab PO Q4H PRN PRN Reason: Moderate Pain (4-6) Last Admin: 01/27/18 06:03 Dose: 1 tab Acetaminophen/Codeine Phosphate (Tylenol #3) 2 tab PO Q4H PRN PRN Reason: PAIN-SEVERE Albuterol/Ipratropium (Duoneb) 3 ml NEB Q6H PRN PRN Reason: SOB/WHEEZE Last Admin: 01/24/18 01:41 Dose: 3 ml Amiodarone HCl (Cordarone) 200 mg PO TID [facility] Last Admin: 01/28/18 14:28 Dose: 200 mg Aspirin (Aspirin Chewable) 81 mg PO DAILY [facility] Last Admin: 01/28/18 09:11 Dose: 81 mg Atorvastatin Calcium (Lipitor) 10 mg PO HS [facility] Last Admin: 01/27/18 21:08 Dose: 10 mg Bisacodyl (Dulcolax) 10 mg [place] DAILYPRN PRN PRN Reason: Constipation Last Admin: 01/28/18 09:32 Dose: 10 mg Cefazolin Sodium/Dextrose (Ancef 2 Gm/50 Ml) 2 gm IVPB Q8HR [facility] Last Admin: 01/28/18 14:52 Dose: 2 gm Citalopram Hydrobromide (Celexa) 20 mg PO DAILY [facility] Last Admin: 01/28/18 09:10 Dose: 20 mg Cyanocobalamin (Vitamin B-12) 1,000 mcg PO DAILY [facility] Last Admin: 01/28/18 09:11 Dose: 1,000 mcg Dextrose/Water (Dextrose 50%) 25 gm SLOW IVP PRN PRN PRN Reason: Hypoglycemia Famotidine (Pepcid) 20 mg PO DAILY [facility] Last Admin: 01/28/18 09:11 Dose: 20 mg Fentanyl (Sublimaze) 50 mcg SLOW IVP Q2H PRN PRN Reason: Moderate to Severe Pain (6-10) Last Admin: 01/26/18 09:44 Dose: 50 mcg Folic Acid (Folvite) 1 mg PO DAILY [facility] Last Admin: 01/28/18 09:10 Dose: 1 mg Furosemide (Lasix) 20 mg SLOW IVP DAILY [facility] Last Admin: 01/28/18 09:11 Dose: 20 mg Glucagon (Glucagon) 1 mg IM PRN PRN PRN Reason: Hypoglycemia Insulin Human Regular (Humulin R) 0 units SC .MILD SLIDING SCALE PRN PRN Reason: Mild Correctional Scale Last Admin: 01/24/18 16:30 Dose: 3 units Insulin Human Regular (Humulin R) 0 units SC .BEDTIME SLIDING SC PRN PRN Reason: Bedtime Correctional Scale Isosorbide Dinitrate (Isordil) 5 mg PO BID [facility] Last Admin: 01/28/18 09:10 Dose: 5 mg Ketorolac Tromethamine (Toradol) 7.5 mg IVP Q6H PRN PRN Reason: Pain Stop: 01/31/18 09:34 Last Admin: 01/26/18 15:19 Dose: 7.5 mg Labetalol HCl (Normodyne) 10 mg SLOW IVP Q4H PRN PRN Reason: Systolic BP > 180 Levothyroxine Sodium (Synthroid) 150 mcg PO 0600 [facility] Last Admin: 01/28/18 05:50 Dose: 150 mcg Magnesium Oxide (Magnesium Oxide) 400 mg PO DAILY [facility] Last Admin: 01/28/18 09:11 Dose: 400 mg Multivitamins (Theragran) 1 tab PO DAILY [facility] Last Admin: 01/28/18 09:11 Dose: 1 tab Nitroglycerin (Nitrostat) 0.4 mg PO Q5MIN PRN PRN Reason: Chest Pain Nystatin (Mycostatin Powder) 0 gm TOP BID [facility] Last Admin: 01/28/18 09:12 Dose: 1 applic Ondansetron HCl (Zofran Odt) 4 mg PO Q6H PRN PRN Reason: Nausea/Vomiting Ondansetron HCl (Zofran) 4 mg IVP Q6H PRN PRN Reason: Nausea/Vomiting Pyridoxine HCl (Vitamin B 6) 50 mg PO DAILY [facility] Last Admin: 01/28/18 09:11 Dose: 50 mg Ropinirole HCl (Requip) 0.25 mg PO TID [facility] Last Admin: 01/28/18 14:28 Dose: 0.25 mg Saccharomyces Boulardii (Florastor) 250 mg PO BID [facility] Last Admin: 01/28/18 09:11 Dose: 250 mg Senna (Senokot) 1 tab PO BIDPRN PRN PRN Reason: Constipation Senna/Docusate Sodium (Senokot S) 1 tab PO BID [facility] Last Admin: 01/28/18 09:11 Dose: 1 tab Tramadol HCl (Ultram) 100 mg PO Q4H PRN PRN Reason: Mild-Moderate Pain (1-5) Last Admin: 01/28/18 05:55 Dose: 100 mg Tramadol HCl (Ultram) 50 mg PO Q4H PRN PRN Reason: Mild Pain (1-3) Last Admin: 01/27/18 11:28 Dose: 50 mg
[2018-01-28] MEDS: Atorvastatin Calcium 10 MG TAB PO SCH (20:55)
[2018-01-28] MEDS: Acetaminophen/Codeine 30-300mg Tablet PO PRN (21:52)
[2018-01-29] MEDS: CEFAZOLIN 2 GM/50 ML BAG IVPB SCH ×3 (05:15→22:41)
[2018-01-29] MEDS: Levothyroxine 150 MCG TAB PO SCH (05:15)
[2018-01-29 06:33] LABS: Anion Gap 10 mmol/L (10-20); BUN (Urea Nitrogen) 23 mg/dL (9.8-20.1); Calc. Creatinine Clearance 45 mL/min (70-130); Calcium 7.8 mg/dL (7.8-10.44); Carbon Dioxide 19 mmol/L (23-31); Chloride 107 mmol/L (98-107); Estimated GFR-MDRD 39; Glucose 79 mg/dL (83-110); Potassium 4.2 mmol/L (3.5-5.1); Sodium 132 mmol/L (136-145)
[2018-01-29 06:36] LABS: Hemoglobin 8.4 g/dL (12.0-16.0); Mean Corpuscular HGB CONC 32.9 g/dL (32.0-36.0); Mean Corpuscular Hemoglobin 32.7 pg (27.0-31.0); Mean Corpuscular Volume 99.2 fL (78.0-98.0); Mean Platelet Volume 8.3 fL (7.4-10.4); Platelet Count 167 thou/uL (130-400); RBC Distribution Width 16.4 % (11.5-14.5); Red Blood Cell (RBC) Count 2.59 mill/uL (4.20-5.40); White Blood Cell (WBC) Count 9.9 thou/uL (4.8-10.8)
[2018-01-29 06:39] LABS: Band 12 % (5-11); Eosinophils 3 % (0-10); Lymphocytes 22 % (21-51); MDiff Complete? YES; Monocytes 6 % (0-10); Neutrophil 56 % (42-75); Platelet Morphology Comment Appears Adequate
--- NOTE | 2018-01-29 07:49 | PRG ---
DATE OF SERVICE: 01/28/2018 SUBJECTIVE: She appears about the same, in no acute distress. OBJECTIVE: VITAL SIGNS: Temperature 98.6, pulse 75, respirations 14, O2 saturations 94%, blood pressure . HEENT: Unremarkable. NECK: No adenopathy or JVD. No bruits. LUNGS: Fairly clear. CARDIAC: S1 and S2. Regular. ABDOMEN: Soft. EXTREMITIES: No edema. LABORATORY DATA: White blood cell count 14, hematocrit 30, platelet count 154. Sodium 134, potassium 4.9, chloride 109, CO2 of 19, BUN 26, creatinine 1.2, glucose 77. ASSESSMENT: 1. Sepsis secondary to infected hip hardware. 2. Status post acute respiratory failure requiring mechanical ventilation. 3. Atrial fibrillation. PLAN: She is continuing IV antibiotics. I think recovery is likely to take a considerable amount of time. Job ID: [id number]
--- NOTE | 2018-01-29 07:50 | PRG ---
DATE OF SERVICE: 01/28/2018 SUBJECTIVE: Feeling better. The patient had the replacement or revision of the right hip arthroplasty. She still has pain in other joints and some back pain, but overall improvement is noted. No dyspnea. No diarrhea. No abdominal pain except for the site of the mesh, which is mildly tender. OBJECTIVE: VITAL SIGNS: T-max was 100.1 two days ago, she has been afebrile since. Other vital signs are not remarkable. SKIN: Shows the surgical site little bit of erythema in the area of the presacral region. There is pressure area in the right heel and the left heel as well. GENERAL: Awake, alert, oriented. LUNGS: Clear. CARDIAC: S1, S2. Regular rate. ABDOMEN: Soft, nondistended. LABORATORY DATA: White cell count is 14,000, hemoglobin 9.9, platelets 154 with 76% neutrophils. Sodium 134, creatinine 1.26. Last transaminases from about three days ago and they were normal. Microbiology with methicillin-susceptible Staphylococcus aureus from 01/19. Followup blood cultures negative. Cultures from the hip thus far no growth, which is not surprising since patient had been on antimicrobials for a number of days prior to the sample being collected. 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 The end date of therapy is calculated as 03/08 with weekly labs including CBC, CRP, CMP. After completion of IV cefazolin treatment, then patient to be transitioned to oral Keflex and rifampin for 1-1/2 months and after that suppressive Keflex 500 mg twice daily indefinitely. Other areas of involvement are not confirmed at this point in time, and the PICC line still needs to be placed. Job ID: [id number]
[2018-01-29] MEDS: Acetaminophen 325 MG TAB PO SCH ×3 (09:44→20:22)
[2018-01-29] MEDS: Citalopram 20 MG TAB PO SCH (09:44)
[2018-01-29] MEDS: Senokot S 8.6-50 MG TAB PO SCH ×2 (09:44→20:22)
[2018-01-29] MEDS: rOPINIRole HCl 0.25 MG TAB PO SCH ×3 (09:44→20:21)
[2018-01-29] MEDS: Folic Acid 1 MG TAB PO SCH (09:45)
[2018-01-29] MEDS: Cyanocobalamin (Vitamin B-12) 1,000 MCG TAB PO SCH (09:45)
[2018-01-29] MEDS: Amiodarone 200 MG TAB PO SCH ×2 (09:45→20:22)
[2018-01-29] MEDS: pyridOXINE 50 MG (B6) TAB PO SCH (09:45)
[2018-01-29] MEDS: Magnesium Oxide 400 MG TAB PO SCH (09:45)
[2018-01-29] MEDS: Isosorbide Dinitrate 5 MG TAB PO SCH ×2 (09:45→20:21)
[2018-01-29] MEDS: Multivit, Therapeutic 1 TAB PO SCH (09:45)
[2018-01-29] MEDS: Furosemide 20 MG/2 ML VIAL SLOW IVP SCH (09:45)
[2018-01-29] MEDS: Saccharomyces boulardii 250 MG CAP PO SCH ×2 (09:45→20:21)
[2018-01-29] MEDS: Famotidine 20 MG TAB PO SCH (09:45)
[2018-01-29] MEDS: Polyethylene Glycol 3350 17 GM Packet PO SCH (09:46)
[2018-01-29] MEDS: Nystatin Powder 15 GM BOT TOP SCH ×2 (09:47→20:22)
--- NOTE | 2018-01-29 10:18 | ULT ---
VENOUS DUPLEX SONOGRAM BILATERAL LOWER EXTREMITIES: History: Bilateral leg pain and edema. FINDINGS: Each common femoral vein and greater saphenous junction were evaluated along with each femoral, deep femoral, popliteal, and posterior tibial vein. There is good color and spectral doppler flow, jose ramon alfonso, and augmentation. IMPRESSION: No sonographic evidence of a DVT within either lower extremity. POS: [facility]
--- NOTE | 2018-01-29 10:55 | PRG ---
DATE OF SERVICE: 01/29/2018 SUBJECTIVE: Ms. Sanchez is doing better today. She is more awake and alert. She is not short of breath. No chest pain. No difficulty breathing. OBJECTIVE: VITAL SIGNS: Blood pressure 125/66 and pulse 76, it is regular, it is sinus on the monitor. LUNGS: Clear. CARDIAC: Normal S1. Normal S2. ABDOMEN: Soft. Nontender. EXTREMITIES: There is rdhn-ah-rraolync edema. ASSESSMENT: 1. Status post staph bacteremia, sepsis. 2. Previous hip replacement, status post removal. 3. Previous transcutaneous aortic valve replacement. 4. Still volume overload. PLAN: 1. Continue diuretics. 2. Transesophageal echo to further evaluate the aortic valve. 3. She is on intravenous antibiotics. 4. She is still on statins. 5. She is on aspirin. 6. Continue to follow blood counts. 7. She is on amiodarone 200 mg three times a day. We will go ahead and reduce that to twice a day. She is maintaining sinus rhythm. 8. Okay to me to go off telemetry to medical floor or surgical floor whichever is preferred. Job ID: [id number]
--- NOTE | 2018-01-29 20:03 | PDOC.PN ---
- Subjective Encounter Start Date: 01/29/18 Encounter Start Time: 08:30 Patient seen and examined for Sepsis/bacteremia. No new complaints. No overnight events - Objective Resuscitation Status - Order Detail: 01/23/18 11:56 Resuscitation Status Routine Resuscitation Status: DNAR: NO Resuscitation Discussed with: confirmed with DPOA MAR Reviewed: Yes Vital Signs & Weight: Vital Signs (12 hours) Temp Pulse Resp BP BP Pulse Ox 01/29/18 19:00 98.5 F 73 18 153/68 H 96 01/29/18 18:20 98.5 F 75 20 133/69 95 01/29/18 16:20 97.9 F 75 12 139/65 94 L 01/29/18 12:00 98.4 F 78 14 130/68 97 Weight Admit Weight 162 lb 8 oz Weight 188 lb 1.6 oz Most Recent Monitor Data Heart Rate from ECG 70 NIBP 92/80 NIBP BP-Mean 84 Respiration from ECG 14 SpO2 100 I&O: 01/28/18 01/29/18 01/30/18 06:59 06:59 06:59 Intake Total 1200 560 Output Total 1475 600 Balance -275 -40 Result Diagrams: 01/29/18 05:29 01/29/18 05:29 Additional Labs: Accuchecks 01/29/18 01/29/18 01/29/18 16:56 11:29 05:24 POC Glucose 102 99 87 01/28/18 01/28/18 20:31 05:27 POC Glucose 98 83 EKG Reviewed by me: Yes (Tele SR) Phys Exam - Physical Examination Constitutional: NAD Respiratory: no wheezing, no rhonchi Cardiovascular: RRR, no rub Gastrointestinal: soft, non-tender, positive bowel sounds Musculoskeletal: no edema Neurological: moves all 4 limbs Dx/Plan - Plan DVT proph w/SCDs 1. Sepsis with acute organ dysfunction secondary to Ecoli UTI /Staph bacteremia 2. Elevated troponins secondary to demand ischemia/type 2 myocardial infarction with Afib with RVR - in SR 3. Acute kidney injury on chronic kidney disease stage 3. improving 4. Metabolic acidosis/lactic acidosis. 5. 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 Coronary artery disease, status post stent placement on aspirin and Plavix. 7. Aortic stenosis with recent TAVR replacement . 8. Acute postop resp failure extubated 11/30 9. Diet controlled diabetes mellitus type 2. 10. Mild intermittent asthma. 11. Hypothyroidism. 12. Diverticulosis. 13. Hyperlipidemia. 14. Degenerative joint disease/History of cervical cancer/Chronic anemia. Macrocytic/Thrombocytopenia, probably secondary to sepsis. improving 15. Mild protein calorie malnutrition/Skin tear with bleeding/Right shoulder dislocation ? chronic/Macular degeneration. PLAN: PICC line today Cont Ancef per ID SNF Eval on ASA/Plavix AM labs Cont other meds as below No Heparin/Lovenox due to thrombocytopenia Review of Systems - Review of Systems Respiratory: negative: Cough, Dry, Shortness of Breath, Hemoptysis, SOB with Excertion, Pleuritic Pain, Sputum, Wheezing Cardiovascular: negative: chest pain, palpitations, orthopnea, paroxysmal nocturnal dyspnea, edema, light headedness, other - Medications/Allergies Allergies/Adverse Reactions: Allergies Allergy/AdvReac Type Severity Reaction Status Date / Time Penicillins Allergy Verified 01/19/18 20:43 Medications: Current Medications Acetaminophen (Tylenol) 650 mg PO Q4H PRN PRN Reason: Headache/Fever or Mild Pain Last Admin: 01/24/18 03:29 Dose: 650 mg Acetaminophen (Tylenol) 650 mg PO TID [facility] Last Admin: 01/29/18 14:15 Dose: 650 mg Acetaminophen/Codeine Phosphate (Tylenol #3) 1 tab PO Q4H PRN PRN Reason: Moderate Pain (4-6) Last Admin: 01/28/18 21:52 Dose: 1 tab Acetaminophen/Codeine Phosphate (Tylenol #3) 2 tab PO Q4H PRN PRN Reason: PAIN-SEVERE Last Admin: 01/29/18 03:30 Dose: 2 tab Albuterol/Ipratropium (Duoneb) 3 ml NEB Q6H PRN PRN Reason: SOB/WHEEZE Last Admin: 01/24/18 01:41 Dose: 3 ml Amiodarone HCl (Cordarone) 200 mg PO BID [facility] Aspirin (Aspirin Chewable) 81 mg PO DAILY [facility] Last Admin: 01/29/18 10:06 Dose: Not Given Atorvastatin Calcium (Lipitor) 10 mg PO HS [facility] Last Admin: 01/28/18 20:55 Dose: 10 mg Bisacodyl (Dulcolax) 10 mg [place] DAILYPRN PRN PRN Reason: Constipation Last Admin: 01/28/18 09:32 Dose: 10 mg Cefazolin Sodium/Dextrose (Ancef 2 Gm/50 Ml) 2 gm IVPB Q8HR [facility] Last Admin: 01/29/18 14:15 Dose: 2 gm Citalopram Hydrobromide (Celexa) 20 mg PO DAILY [facility] Last Admin: 01/29/18 09:44 Dose: 20 mg Cyanocobalamin (Vitamin B-12) 1,000 mcg PO DAILY [facility] Last Admin: 01/29/18 09:45 Dose: 1,000 mcg Dextrose/Water (Dextrose 50%) 25 gm SLOW IVP PRN PRN PRN Reason: Hypoglycemia Famotidine (Pepcid) 20 mg PO DAILY [facility] Last Admin: 01/29/18 09:45 Dose: 20 mg Fentanyl (Sublimaze) 50 mcg SLOW IVP Q2H PRN PRN Reason: Moderate to Severe Pain (6-10) Last Admin: 01/26/18 09:44 Dose: 50 mcg Folic Acid (Folvite) 1 mg PO DAILY [facility] Last Admin: 01/29/18 09:45 Dose: 1 mg Furosemide (Lasix) 20 mg SLOW IVP DAILY [facility] Last Admin: 01/29/18 09:45 Dose: 20 mg Glucagon (Glucagon) 1 mg IM PRN PRN PRN Reason: Hypoglycemia Insulin Human Regular (Humulin R) 0 units SC .MILD SLIDING SCALE PRN PRN Reason: Mild Correctional Scale Last Admin: 01/24/18 16:30 Dose: 3 units Insulin Human Regular (Humulin R) 0 units SC .BEDTIME SLIDING SC PRN PRN Reason: Bedtime Correctional Scale Isosorbide Dinitrate (Isordil) 5 mg PO BID [facility] Last Admin: 01/29/18 09:45 Dose: 5 mg Ketorolac Tromethamine (Toradol) 7.5 mg IVP Q6H PRN PRN Reason: Pain Stop: 01/31/18 09:34 Last Admin: 01/26/18 15:19 Dose: 7.5 mg Labetalol HCl (Normodyne) 10 mg SLOW IVP Q4H PRN PRN Reason: Systolic BP > 180 Levothyroxine Sodium (Synthroid) 150 mcg PO 0600 [facility] Last Admin: 01/29/18 05:15 Dose: 150 mcg Magnesium Oxide (Magnesium Oxide) 400 mg PO DAILY [facility] Last Admin: 01/29/18 09:45 Dose: 400 mg Multivitamins (Theragran) 1 tab PO DAILY [facility] Last Admin: 01/29/18 09:45 Dose: 1 tab Nitroglycerin (Nitrostat) 0.4 mg PO Q5MIN PRN PRN Reason: Chest Pain Nystatin (Mycostatin Powder) 0 gm TOP BID [facility] Last Admin: 01/29/18 09:47 Dose: 1 applic Ondansetron HCl (Zofran Odt) 4 mg PO Q6H PRN PRN Reason: Nausea/Vomiting Ondansetron HCl (Zofran) 4 mg IVP Q6H PRN PRN Reason: Nausea/Vomiting Polyethylene Glycol (Miralax) 17 gm PO DAILY [facility] Last Admin: 01/29/18 09:46 Dose: 17 gm Pyridoxine HCl (Vitamin B 6) 50 mg PO DAILY [facility] Last Admin: 01/29/18 09:45 Dose: 50 mg Ropinirole HCl (Requip) 0.25 mg PO TID [facility] Last Admin: 01/29/18 14:15 Dose: 0.25 mg Saccharomyces Boulardii (Florastor) 250 mg PO BID [facility] Last Admin: 01/29/18 09:45 Dose: 250 mg Senna (Senokot) 1 tab PO BIDPRN PRN PRN Reason: Constipation Senna/Docusate Sodium (Senokot S) 1 tab PO BID [facility] Last Admin: 01/29/18 09:44 Dose: 1 tab Tramadol HCl (Ultram) 100 mg PO Q4H PRN PRN Reason: Mild-Moderate Pain (1-5) Last Admin: 01/28/18 05:55 Dose: 100 mg Tramadol HCl (Ultram) 50 mg PO Q4H PRN PRN Reason: Mild Pain (1-3) Last Admin: 01/27/18 11:28 Dose: 50 mg
[2018-01-29] MEDS: Atorvastatin Calcium 10 MG TAB PO SCH (20:22)
[2018-01-29] MEDS: traMADol HCl 50 MG TAB PO PRN (22:42)
[2018-01-30 04:45] LABS: Anion Gap 10 mmol/L (10-20); BUN (Urea Nitrogen) 20 mg/dL (9.8-20.1); Calc. Creatinine Clearance 47 mL/min (70-130); Calcium 7.9 mg/dL (7.8-10.44); Carbon Dioxide 20 mmol/L (23-31); Chloride 106 mmol/L (98-107); Estimated GFR-MDRD 42; Glucose 67 mg/dL (83-110); Potassium 4.2 mmol/L (3.5-5.1); Sodium 132 mmol/L (136-145)
[2018-01-30 05:04] LABS: Band 1 % (5-11); Eosinophils 3 % (0-10); Hemoglobin 8.8 g/dL (12.0-16.0); Hypochromia SLIGHT = 6-15 cells (100X) (0-5/hpf); Lymphocytes 8 % (21-51); MDiff Complete? YES; Mean Corpuscular HGB CONC 33.5 g/dL (32.0-36.0); Mean Corpuscular Hemoglobin 32.8 pg (27.0-31.0); Mean Corpuscular Volume 98.1 fL (78.0-98.0); Monocytes 2 % (0-10); Neutrophil 86 % (42-75); Platelet Count 184 thou/uL (130-400); Platelet Morphology Comment Appears Adequate; Polychromasia SLIGHT = 2-3 cells (100X) (0-2/hpf); Red Blood Cell (RBC) Count 2.68 mill/uL (4.20-5.40); White Blood Cell (WBC) Count 9.8 thou/uL (4.8-10.8)
[2018-01-30] MEDS: Levothyroxine 150 MCG TAB PO SCH (06:05)
[2018-01-30] MEDS: CEFAZOLIN 2 GM/50 ML BAG IVPB SCH ×3 (06:05→21:10)
--- NOTE | 2018-01-30 11:22 | SPC ---
FLUOROSCOPICALLY GUIDED PICC LINE EXCHANGE: HISTORY: Urinary tract infection. EXPOSURE: 0.4 minutes. 2382 mGy per cm2. FINDINGS: Successful right upper extremity PICC line exchange. Trim length is 40 cm. Single-lumen catheter di stal tip is in the right atrium. TECHNIQUE: Consent obtained to perform a PICC line exchange. The patient has a right upper extremity midline. The midline was prepped and draped in a sterile fashion. A 0.018 guidewire was advanced through the midline, to the level of the right atrium. The tract was dilated. A single-lumen 5-Hungarian catheter was advanced over the wire. The wire was removed. The catheter flushes and aspirates without diffic ulty. Trim length is 40 cm. Incidental stent projects over the cardiac silhouette. There is calcification of the mitral annulus. There are coronary calcifications, along with a coronary stent. IMPRESSION: Successful right upper extremity peripherally inserted central catheter line exchange. POS: [facility]
[2018-01-30] MEDS: Polyethylene Glycol 3350 17 GM Packet PO SCH (12:41)
[2018-01-30] MEDS: Saccharomyces boulardii 250 MG CAP PO SCH ×2 (12:41→20:30)
[2018-01-30] MEDS: Magnesium Oxide 400 MG TAB PO SCH (12:41)
[2018-01-30] MEDS: Furosemide 20 MG/2 ML VIAL SLOW IVP SCH (12:41)
[2018-01-30] MEDS: rOPINIRole HCl 0.25 MG TAB PO SCH ×3 (12:42→20:30)
[2018-01-30] MEDS: Cyanocobalamin (Vitamin B-12) 1,000 MCG TAB PO SCH (12:42)
[2018-01-30] MEDS: Famotidine 20 MG TAB PO SCH (12:42)
[2018-01-30] MEDS: Folic Acid 1 MG TAB PO SCH (12:42)
[2018-01-30] MEDS: Senokot S 8.6-50 MG TAB PO SCH ×2 (12:42→20:30)
[2018-01-30] MEDS: Amiodarone 200 MG TAB PO SCH ×2 (12:42→20:30)
[2018-01-30] MEDS: Citalopram 20 MG TAB PO SCH (12:42)
[2018-01-30] MEDS: Multivit, Therapeutic 1 TAB PO SCH (12:42)
[2018-01-30] MEDS: pyridOXINE 50 MG (B6) TAB PO SCH (12:43)
[2018-01-30] MEDS: Acetaminophen 325 MG TAB PO SCH ×3 (12:43→20:30)
[2018-01-30] MEDS: Nystatin Powder 15 GM BOT TOP SCH ×2 (12:43→20:31)
--- NOTE | 2018-01-30 13:49 | ECHO ---
TRANSESOPHAGEAL ECHOCARDIOGRAM: DATE OF PROCEDURE: 01/30/18 INDICATION: 82-year-old woman with sepsis. DESCRIPTION OF PROCEDURE: The patient was taken to the PACU. The patient was sedated by anesthesiology. A transesophageal probe was placed in the distal esophagus and stomach. Echocardiographic images were obtained. The transesophageal probe was removed. FINDINGS: 1. Normal left ventricular systolic function. 2. Structurally normal mitral valve. 3. Prosthetic aortic valve. 4. Vegetations noted on both the anterior and posterior mitral valve leaflets. 5. Mild mitral regurgitation. 6. Moderate to severe tricuspid regurgitation. 7. Atherosclerotic debris in the descending aorta. 8. Large pleural effusion. IMPRESSION: Vegetations noted on both the anterior and posterior mitral valve leaflets with mild mitral regurgita tion.
--- NOTE | 2018-01-30 14:29 | OP ---
DATE OF PROCEDURE: 01/25/2018 PREOPERATIVE DIAGNOSIS: Infected right total hip. POSTOPERATIVE DIAGNOSIS: Infected right total hip. PROCEDURE PERFORMED: Right total hip revision for total hip infection. GARMENT [employer]S CUTTER HAND: Devin Montoya PA-C BLOOD LOSS: 400. SPECIMEN: Cultures from the tissue inside the hip joint. DRAINS: None. COMPLICATIONS: None. BLOOD RETURN: 2 units. DESCRIPTION OF PROCEDURE: The patient was taken to the operating room, where general anesthesia was induced. The patient was positioned in left lateral decubitus position. Right hip prepped and draped in sterile fashion. I opened up the old scar and dissection carried down to the IT band, divided distally and extended proximally. Anterior one-third abductor mechanism was taken down using electrocautery. I entered the hip joint and performed complete capsulectomy. The hip was dislocated and I removed the stem using flexible osteotomes and a stem extractor and then copiously cleaned the inside of the stem with curettes and cleaned it with a pulsatile lavage irrigation, brush. The acetabulum was circumferentially exposed, I removed the plastic, I removed the screws. I used a cup extraction device to remove the cup, reamed the acetabulum with a size 56 reamer. I then cemented an all polyethylene 40 mm inside diameter cup into the acetabulum and a long stem cemented Tucker revision hip was cemented proximally. I then did trial reduction, used a +10 mm 40 head. The hip was reduced without difficulty and irrigation was performed. Abductors and IT band were repaired with #1 Vicryl and then reinforced with #2 Quill. Subcu closed with 0 Quill and skin was closed with 2-0 prolene. Sterile dressings were applied. Postoperative plan is for a wound VAC. Continue IV antibiotics. Job ID: [id number]
[2018-01-30] MEDS: Isosorbide Dinitrate 5 MG TAB PO SCH ×2 (15:04→21:10)
[2018-01-30] MEDS ORDERED: PROPOFOL 200 MG/20 ML VIAL ONE (16:08)
--- NOTE | 2018-01-30 17:07 | PDOC.PN ---
- Subjective Encounter Start Date: 01/30/18 Encounter Start Time: 12:00 Patient seen and examined for Sepsis. s/p ANDREA. No new complaints. No overnight events - Objective Resuscitation Status - Order Detail: 01/23/18 11:56 Resuscitation Status Routine Resuscitation Status: DNAR: NO Resuscitation Discussed with: confirmed with DPOA MAR Reviewed: Yes Vital Signs & Weight: Vital Signs (12 hours) Temp Pulse Resp BP Pulse Ox 01/30/18 10:00 98.1 F 80 16 151/73 H 95 01/30/18 07:30 95 Weight Admit Weight 162 lb 8 oz Weight 194 lb 6 oz Most Recent Monitor Data Heart Rate from ECG 70 NIBP 92/80 NIBP BP-Mean 84 Respiration from ECG 14 SpO2 100 I&O: 01/29/18 01/30/18 01/31/18 06:59 06:59 06:59 Intake Total 560 480 Output Total 600 2000 480 Result Diagrams: 01/30/18 03:23 01/30/18 03:23 Additional Labs: Accuchecks 01/30/18 01/30/18 01/29/18 11:19 04:48 19:35 POC Glucose 115 H 82 107 01/29/18 16:56 POC Glucose 102 Phys Exam - Physical Examination Constitutional: NAD Respiratory: no wheezing, no rhonchi Cardiovascular: RRR, no rub Gastrointestinal: soft, non-tender, positive bowel sounds Musculoskeletal: no edema Neurological: moves all 4 limbs Dx/Plan - Plan DVT proph w/SCDs 1. Sepsis with acute organ dysfunction secondary to Ecoli UTI /Staph bacteremia with Mitral valve endocarditis 2. Elevated troponins secondary to demand ischemia/type 2 myocardial infarction with Afib with RVR - in SR 3. Acute kidney injury on chronic kidney disease stage 3. improving 4. Metabolic acidosis/lactic acidosis. 5. 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 Coronary artery disease, status post stent placement on aspirin and Plavix. 7. Aortic stenosis with recent TAVR replacement . 8. Acute postop resp failure extubated 01/26 9. Diet controlled diabetes mellitus type 2. 10. Mild intermittent asthma. 11. Hypothyroidism. 12. Diverticulosis. 13. Hyperlipidemia. 14. Degenerative joint disease/History of cervical cancer/Chronic anemia. Macrocytic/Thrombocytopenia, probably secondary to sepsis. improving 15. Mild protein calorie malnutrition/Skin tear with bleeding/Right shoulder dislocation ? chronic/Macular degeneration. PLAN: PICC line placed Cont Ancef until Mar 08 then PO Atbs Stable for dc - No bed available at [facility] No Heparin/Lovenox due to thrombocytopenia Review of Systems - Review of Systems Respiratory: negative: Cough, Dry, Shortness of Breath, Hemoptysis, SOB with Excertion, Pleuritic Pain, Sputum, Wheezing Cardiovascular: negative: chest pain, palpitations, orthopnea, paroxysmal nocturnal dyspnea, edema, light headedness, other - Medications/Allergies Allergies/Adverse Reactions: Allergies Allergy/AdvReac Type Severity Reaction Status Date / Time Penicillins Allergy Verified 01/19/18 20:43 Medications: Current Medications Acetaminophen (Tylenol) 650 mg PO Q4H PRN PRN Reason: Headache/Fever or Mild Pain Last Admin: 01/24/18 03:29 Dose: 650 mg Acetaminophen (Tylenol) 650 mg PO TID [facility] Last Admin: 01/30/18 15:04 Dose: 650 mg Acetaminophen/Codeine Phosphate (Tylenol #3) 1 tab PO Q4H PRN PRN Reason: Moderate Pain (4-6) Last Admin: 01/28/18 21:52 Dose: 1 tab Acetaminophen/Codeine Phosphate (Tylenol #3) 2 tab PO Q4H PRN PRN Reason: PAIN-SEVERE Last Admin: 01/29/18 03:30 Dose: 2 tab Albuterol/Ipratropium (Duoneb) 3 ml NEB Q6H PRN PRN Reason: SOB/WHEEZE Last Admin: 01/24/18 01:41 Dose: 3 ml Amiodarone HCl (Cordarone) 200 mg PO BID [facility] Last Admin: 01/30/18 12:42 Dose: 200 mg Aspirin (Aspirin Chewable) 81 mg PO DAILY [facility] Last Admin: 01/30/18 12:42 Dose: 81 mg Atorvastatin Calcium (Lipitor) 10 mg PO HS [facility] Last Admin: 01/29/18 20:22 Dose: 10 mg Bisacodyl (Dulcolax) 10 mg NE DAILYPRN PRN PRN Reason: Constipation Last Admin: 01/28/18 09:32 Dose: 10 mg Cefazolin Sodium/Dextrose (Ancef 2 Gm/50 Ml) 2 gm IVPB Q8HR [facility] Last Admin: 01/30/18 15:03 Dose: 2 gm Citalopram Hydrobromide (Celexa) 20 mg PO DAILY [facility] Last Admin: 01/30/18 12:42 Dose: 20 mg Clopidogrel Bisulfate (Plavix) 75 mg PO DAILY [facility] Cyanocobalamin (Vitamin B-12) 1,000 mcg PO DAILY [facility] Last Admin: 01/30/18 12:42 Dose: 1,000 mcg Dextrose/Water (Dextrose 50%) 25 gm SLOW IVP PRN PRN PRN Reason: Hypoglycemia Famotidine (Pepcid) 20 mg PO DAILY [facility] Last Admin: 01/30/18 12:42 Dose: 20 mg Fentanyl (Sublimaze) 50 mcg SLOW IVP Q2H PRN PRN Reason: Moderate to Severe Pain (6-10) Last Admin: 01/26/18 09:44 Dose: 50 mcg Folic Acid (Folvite) 1 mg PO DAILY [facility] Last Admin: 01/30/18 12:42 Dose: 1 mg Furosemide (Lasix) 20 mg SLOW IVP DAILY [facility] Last Admin: 01/30/18 12:41 Dose: 20 mg Glucagon (Glucagon) 1 mg IM PRN PRN PRN Reason: Hypoglycemia Insulin Human Regular (Humulin R) 0 units SC .MILD SLIDING SCALE PRN PRN Reason: Mild Correctional Scale Last Admin: 01/24/18 16:30 Dose: 3 units Insulin Human Regular (Humulin R) 0 units SC .BEDTIME SLIDING SC PRN PRN Reason: Bedtime Correctional Scale Isosorbide Dinitrate (Isordil) 5 mg PO BID [facility] Last Admin: 01/30/18 15:04 Dose: 5 mg Ketorolac Tromethamine (Toradol) 7.5 mg IVP Q6H PRN PRN Reason: Pain Stop: 01/31/18 09:34 Last Admin: 01/26/18 15:19 Dose: 7.5 mg Labetalol HCl (Normodyne) 10 mg SLOW IVP Q4H PRN PRN Reason: Systolic BP > 180 Levothyroxine Sodium (Synthroid) 150 mcg PO 0600 [facility] Last Admin: 01/30/18 06:05 Dose: Not Given Magnesium Oxide (Magnesium Oxide) 400 mg PO DAILY [facility] Last Admin: 01/30/18 12:41 Dose: 400 mg Multivitamins (Theragran) 1 tab PO DAILY [facility] Last Admin: 01/30/18 12:42 Dose: 1 tab Nitroglycerin (Nitrostat) 0.4 mg PO Q5MIN PRN PRN Reason: Chest Pain Nystatin (Mycostatin Powder) 0 gm TOP BID [facility] Last Admin: 01/30/18 12:43 Dose: 1 applic Ondansetron HCl (Zofran Odt) 4 mg PO Q6H PRN PRN Reason: Nausea/Vomiting Ondansetron HCl (Zofran) 4 mg IVP Q6H PRN PRN Reason: Nausea/Vomiting Polyethylene Glycol (Miralax) 17 gm PO DAILY [facility] Last Admin: 01/30/18 12:41 Dose: 17 gm Pyridoxine HCl (Vitamin B 6) 50 mg PO DAILY [facility] Last Admin: 01/30/18 12:43 Dose: 50 mg Ropinirole HCl (Requip) 0.25 mg PO TID [facility] Last Admin: 01/30/18 15:03 Dose: 0.25 mg Saccharomyces Boulardii (Florastor) 250 mg PO BID [facility] Last Admin: 01/30/18 12:41 Dose: 250 mg Senna (Senokot) 1 tab PO BIDPRN PRN PRN Reason: Constipation Senna/Docusate Sodium (Senokot S) 1 tab PO BID [facility] Last Admin: 01/30/18 12:42 Dose: 1 tab Tramadol HCl (Ultram) 100 mg PO Q4H PRN PRN Reason: Mild-Moderate Pain (1-5) Last Admin: 01/29/18 22:42 Dose: 100 mg Tramadol HCl (Ultram) 50 mg PO Q4H PRN PRN Reason: Mild Pain (1-3) Last Admin: 01/27/18 11:28 Dose: 50 mg
[2018-01-30] MEDS: Atorvastatin Calcium 10 MG TAB PO SCH (20:30)
[2018-01-30] MEDS: Acetaminophen/Codeine 30-300mg Tablet PO PRN (22:51)
[2018-01-31] MEDS: Levothyroxine 150 MCG TAB PO SCH (05:22)
[2018-01-31] MEDS: CEFAZOLIN 2 GM/50 ML BAG IVPB SCH ×2 (05:22→14:00)
[2018-01-31] MEDS: traMADol HCl 50 MG TAB PO PRN ×2 (05:49→12:09)
[2018-01-31 07:56] VITALS: BP 129/67; TEMP 98.8
[2018-01-31] MEDS: Polyethylene Glycol 3350 17 GM Packet PO SCH (08:47)
[2018-01-31] MEDS: Isosorbide Dinitrate 5 MG TAB PO SCH (08:47)
[2018-01-31] MEDS: Citalopram 20 MG TAB PO SCH (08:47)
[2018-01-31] MEDS: Magnesium Oxide 400 MG TAB PO SCH (08:47)
[2018-01-31] MEDS: Famotidine 20 MG TAB PO SCH (08:47)
[2018-01-31] MEDS: Multivit, Therapeutic 1 TAB PO SCH (08:48)
[2018-01-31] MEDS: Saccharomyces boulardii 250 MG CAP PO SCH (08:48)
[2018-01-31] MEDS: pyridOXINE 50 MG (B6) TAB PO SCH (08:48)
[2018-01-31] MEDS: Acetaminophen 325 MG TAB PO SCH (08:48)
[2018-01-31] MEDS: Furosemide 20 MG/2 ML VIAL SLOW IVP SCH (08:48)
[2018-01-31] MEDS: Amiodarone 200 MG TAB PO SCH (08:48)
[2018-01-31] MEDS: Folic Acid 1 MG TAB PO SCH (08:48)
[2018-01-31] MEDS: Nystatin Powder 15 GM BOT TOP SCH (08:49)
[2018-01-31] MEDS: rOPINIRole HCl 0.25 MG TAB PO SCH (08:51)
[2018-01-31] MEDS: Senokot S 8.6-50 MG TAB PO SCH (08:53)
[2018-01-31] MEDS ORDERED: Clopidogrel Bisulfate 75 MG TAB PO SCH (09:00)
--- NOTE | 2018-01-31 09:47 | PRG ---
DATE OF SERVICE: 01/31/2018 SUBJECTIVE: The patient is doing reasonably well. She had no acute complaints. OBJECTIVE: VITAL SIGNS: Temperature 98.8, pulse 79, respirations 16, O2 saturation 96%, and blood pressure 129/67. HEENT: Unremarkable. NECK: No JVD. LUNGS: Distant breath sounds. CARDIAC: S1 and S2. Regular. ABDOMEN: Soft. EXTREMITIES: No edema. IMAGING STUDIES: Her echo showed vegetation in the aortic and the mitral valve. LABORATORY DATA: No new labs were done today. ASSESSMENT: Endocarditis - looks like it is mainly staphylococcal in origin her valve. PLAN: She will need prolonged antibiotics. She is supposed to go to [place] today. I spoke with the at the bedside. I think the patient's prognosis is poor. Pulmonary has no further recommendations. We will sign off. Please recall if needed. Job ID: [id number]
[2018-01-31] MEDS: Cyanocobalamin (Vitamin B-12) 1,000 MCG TAB PO SCH (12:09)
--- NOTE | 2018-01-31 13:34 | DIS ---
DATE OF ADMISSION: 01/19/2018 DATE OF DISCHARGE: 01/31/2018 DISCHARGE DISPOSITION: To [facility]. ALLERGIES: THE PATIENT IS ALLERGIC TO PENICILLIN. CODE STATUS: Do not resuscitate. The patient was seen and examined on the day of discharge. Denies any new complaints. No chest pain, shortness of breath, or palpitations. DISCHARGE MEDICATIONS: 1. Aspirin 81 mg daily. 2. Plavix 75 mg daily. 3. Ferrous sulfate 325 mg three times daily. 4. Levothyroxine 150 mcg daily. 5. Magnesium oxide 400 mg daily. 6. Pravastatin 40 mg q.h.s. 7. Requip 0.25 mg three times a day. 8. Ancef 2 g every 8 hourly until March 08. After this, the patient will need Keflex with rifampin for 6 weeks. Then, Keflex 500 mg twice daily indefinitely per Dr. Krause. 9. Tylenol as needed. 10. Amiodarone 200 mg daily. 11. Celexa 20 mg daily. 12. Lasix 40 mg daily. 13. Lisinopril 10 mg daily, hold for systolic blood pressure less than 120. 14. Multivitamin one tablet daily. 15. Procardia XL 30 mg daily. 16. MiraLAX daily. 17. Florastor twice a day. 18. Senokot-S one tablet twice a day. INPATIENT CONSULTANTS: 1. Cardiology, Dr. Russell. 2. Infectious Disease, Dr. Krause. 3. Orthopedic Surgery, Dr. Bernal. INPATIENT PROCEDURES: 1. On January 25, 2018, the patient underwent right total hip revision for total hip infection. 2. Transesophageal echocardiogram on January 30, 2018, showed vegetations noted on both anterior and posterior mitral valve leaflets with [id number] tricuspid regurgitation. 3. Echocardiogram showed left ventricular ejection fraction of 60% to 65% with moderately dilated left atrium, moderately enlarged right atrium. BRIEF HOSPITAL COURSE: The patient is an 82-year-old female with coronary artery disease, diabetes mellitus type 2, and ngsnxyop-[id number]-rhcpnx aortic stenosis, status post recent TAVR in [place], presented to the hospital on January 19, 2018, with fever of 102.2 along with blood pressure of 92/46. She also had some confusion and generalized body ache. Please refer to the history and physical dated January 19, 2018, for further details. The patient was admitted to the hospital with a diagnosis of sepsis secondary to UTI. Blood culture was positive for methicillin-sensitive Staph aureus, 2 of 2. Urine culture showed E. coli sensitive to meropenem. She was started on broad-spectrum antibiotics, that was changed to Ancef per Infectious Disease. For three days, she received meropenem for UTI and was restarted back on Ancef. She was found to have right hip infection requiring hip revision as discussed above by Dr. Bernal. She was monitored closely in the intermediate care unit. She underwent transesophageal echocardiogram yesterday, that was positive for mitral valve endocarditis. She will be discharged to [place] for further rehabilitation and IV antibiotics. She also had a brief episode of atrial fibrillation with rapid ventricular response, requiring amiodarone. She is currently on amiodarone orally. She is not a candidate for anticoagulation due to several comorbidities. Total time coordinating the discharge of this patient was 37 minutes. FINAL DIAGNOSES: 1. Sepsis with acute organ dysfunction secondary to Staphylococcus bacteremia as well as Escherichia coli urinary tract infection. 2. 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 3. Elevated troponin secondary to demand ischemia (type 2 myocardial infarction) . 4. Atrial fibrillation with rapid ventricular response, converted to sinus rhythm with amiodarone. 5. Acute kidney injury on chronic kidney disease, stage 3. Her creatinine on the day of discharge is 1.23, on admission was 2.69. 6. Aortic stenosis, status post recent transcatheter aortic valve replacement. 7. Coronary artery disease, status post stent placement, on aspirin and Plavix. 8. Right hip infection, status post removal on January 25. 9. Metabolic acidosis/lactic acidosis. 10. Acute respiratory failure after hip surgery. She remained on mechanical ventilation overnight. 11. Diabetes mellitus type 2, diet controlled. 12. Mild intermittent asthma. 13. Diverticulosis. 14. Hypothyroidism. 15. Hyperlipidemia. 16. Degenerative joint disease. 17. History of cervical cancer. 18. Chronic anemia. 19. Thrombocytopenia. 20. Mild protein-calorie malnutrition. 21. Chronic right anterior shoulder dislocation. 22. Macular degeneration. 23. Skin tear with bleeding prior to hospitalization, resolved in the emergency room and was discharged home. Job ID: [id number] [facility]
--- NOTE | 2018-01-31 14:34 | PRG ---
DATE OF SERVICE: 01/31/2018 SUBJECTIVE: Ms. Sanchez is resting comfortably. No complaints. OBJECTIVE: VITAL SIGNS: Blood pressure 129/67 and pulse 79 and regular. LUNGS: Clear. CARDIAC: Normal S1. Normal S2. ABDOMEN: Soft and nontender. EXTREMITIES: There is no edema. ASSESSMENT: 1. Hip prosthesis removed. 2. Previous transcutaneous aortic valve replacement. 3. Coronary artery disease. 4. Paroxysmal atrial fibrillation associated initially with her sepsis. 5. Mitral valve endocarditis. 6. Low platelet count. 7. Mild anemia. 8. Renal failure stage 3. PLAN: 1. Reduce the amiodarone to 200 mg once a day. 2. She is back on lisinopril. 3. If needed, can go back on Procardia XL 30 mg a day. 4. Furosemide 20 mg IV can be changed to p.o. 5. Long-term prognosis unfortunately guarded with multiple medical problems with current code status do not resuscitate. Job ID: [id number] [facility]
[2018-02-01] MEDS ORDERED: Amiodarone 200 MG TAB PO SCH (09:00)
[2018-02-01] MEDS ORDERED: Heparin 1,000 UNITS/ML VIAL ONE (14:59)
== END 2018-01-31 14:37 | DRG 466 ==
LOC: ERS 10:15 → 2NO 13:14 → CCU 01-22 12:04 → IMCU/EMU 01-22 21:08 → CCU 01-25 10:14 → 2NO 01-27 19:52 → T4-A 01-29 18:18
PROVIDERS: ADMIT Internal Medicine; ATTEND Internal Medicine
PROC: 0SR9049 Replacement of Right Hip Joint with Ceramic on Polyethylene Synthetic Substitute, Cemented, Open Approach (ICD-10-PCS; principal; 2018-01-25)
PROC: 0SP90JZ Removal of Synthetic Substitute from Right Hip Joint, Open Approach (ICD-10-PCS; 2018-01-25)
PROC: 5A1935Z Respiratory Ventilation, Less than 24 Consecutive Hours (ICD-10-PCS; 2018-01-25)
PROC: 0BH17EZ Insertion of Endotracheal Airway into Trachea, Via Natural or Artificial Opening (ICD-10-PCS; 2018-01-25)
PROC: 02H633Z Insertion of Infusion Device into Right Atrium, Percutaneous Approach (ICD-10-PCS; 2018-01-30)
PROC: B214YZZ Fluoroscopy of Right Heart using Other Contrast (ICD-10-PCS; 2018-01-30)
DX: T84.51XA Infection and inflammatory reaction due to internal right hip prosthesis, initial encounter (principal); I21.A1 Myocardial infarction type 2; J95.822 Acute and chronic postprocedural respiratory failure; A41.01 Sepsis due to Methicillin susceptible Staphylococcus aureus; A41.51 Sepsis due to Escherichia coli [E. coli]; N17.9 Acute kidney failure, unspecified; E87.2 Acidosis; E44.1 Mild protein-calorie malnutrition; I13.0 Hypertensive heart and chronic kidney disease with heart failure and stage 1 through stage 4 chronic kidney disease, or unspecified chronic kidney disease; N39.0 Urinary tract infection, site not specified; I25.10 Atherosclerotic heart disease of native coronary artery without angina pectoris; F03.90 Unspecified dementia, unspecified severity, without behavioral disturbance, psychotic disturbance, mood disturbance, and anxiety; Z95.2 Presence of prosthetic heart valve; Z95.5 Presence of coronary angioplasty implant and graft; I35.0 Nonrheumatic aortic (valve) stenosis; E03.9 Hypothyroidism, unspecified; R53.81 Other malaise; Z85.41 Personal history of malignant neoplasm of cervix uteri; M19.90 Unspecified osteoarthritis, unspecified site; E78.5 Hyperlipidemia, unspecified; I87.8 Other specified disorders of veins; Z96.641 Presence of right artificial hip joint; T14.8XXA Other injury of unspecified body region, initial encounter; Z79.899 Other long term (current) drug therapy; Z79.02 Long term (current) use of antithrombotics/antiplatelets; F41.9 Anxiety disorder, unspecified; F32.9 Major depressive disorder, single episode, unspecified; N18.3 Chronic kidney disease, stage 3 (moderate); E11.22 Type 2 diabetes mellitus with diabetic chronic kidney disease; J45.20 Mild intermittent asthma, uncomplicated; D69.6 Thrombocytopenia, unspecified; I48.0 Paroxysmal atrial fibrillation; D64.9 Anemia, unspecified; I05.9 Rheumatic mitral valve disease, unspecified; M24.411 Recurrent dislocation, right shoulder; Z66 Do not resuscitate; Y79.2 Prosthetic and other implants, materials and accessory orthopedic devices associated with adverse incidents; Z86.14 Personal history of Methicillin resistant Staphylococcus aureus infection; Z68.32 Body mass index [BMI] 32.0-32.9, adult
CPT/HCPCS: 20605; 36415; 36416; 36430; 36569; 51701; 71045; 74018; 76770; 77002; 80048; 80053; 80076; 80202; 81003; 81015; 82533; 82805; 83605; 83735; 83880; 84443; 84484; 85007; 85025; 85027; 85060; 85610; 85730; 86850; 86900; 86901; 87040; 87070; 87076; 87077; 87086; 87149; 87186; 87205; 87804; 89051; 93005; 93010; 93306; 93312; 93970; 94002; 94003; 94640; 94760; 96361; 96365; 96366; 96367; 96375; 99283; A4353; C1713; C1751; C1752; C1776; G8978-GP-CM; G8978-GP-CN; G8979-GP-CK; G8979-GP-CL; G8987-GO-CM; G8988-GO-CK; G8996-GN-CL; G8997-GN-CJ; J0153; J0282; J0692; J0696; J1644; J1815; J1885; J1940; J2001; J2185; J2704; J3010; J3260; J3370; J3490; J7050; J7070; J7620; P9016

== ENCOUNTER 2018-01-31 16:51 | Inpatient (IN) | payer MEDICARE ==
[2018-01-31 17:57] LABS: #Eosinphils 0.1 thou/uL (0.0-0.7); #Lymphocytes 1.7 thou/uL (1.20-3.40); #Monocytes 0.8 thou/uL (0.11-0.59); #Neutrophils 7.7 thou/uL (1.40-6.50); %Basophils 0.5 % (0.0-1.0); %Eosinophils 1.1 % (0.0-10.0); %Lymphocytes 16.2 % (21.0-51.0); %Monocytes 7.2 % (0.0-10.0); Hemoglobin 8.9 g/dL (12.0-16.0); Mean Corpuscular HGB CONC 33.2 g/dL (32.0-36.0); Mean Corpuscular Hemoglobin 32.9 pg (27.0-31.0); Mean Corpuscular Volume 98.9 fL (78.0-98.0); Mean Platelet Volume 7.6 fL (7.4-10.4); Platelet Count 220 thou/uL (130-400); White Blood Cell (WBC) Count 10.3 thou/uL (4.8-10.8)
[2018-01-31 18:06] LABS: Prothrombin Time 54.1 SEC (12.0-14.7)
[2018-01-31 18:07] LABS: PTT 109.1 SEC (22.9-36.1)
[2018-01-31 18:12] LABS: INR-International Normal Ratio 6.1
--- NOTE | 2018-01-31 18:59 | RAD ---
PORTABLE CHEST: History: Fever. Sepsis. FINDINGS: Heart size is within normal limits. There are atherosclerotic changes of the aorta. The lungs appear clear of any infiltrative process. Right sided PICC line is in place. Marked arthritic changes of bot h shoulders are present. IMPRESSION: No active intrathoracic disease. POS: [facility]
[2018-01-31 19:02] LABS: ALT (SGPT) Less than 7 U/L (8-55); AST (SGOT) 27 U/L (5-34); Alkaline Phosphatase 190 U/L (40-150); Anion Gap 10 mmol/L (10-20); BUN (Urea Nitrogen) 18 mg/dL (9.8-20.1); Bilirubin, Total 0.3 mg/dL (0.2-1.2); CK (CPK) 18 U/L (29-168); Calc. Creatinine Clearance 0 mL/min (70-130); Calcium 7.8 mg/dL (7.8-10.44); Carbon Dioxide 23 mmol/L (23-31); Chloride 102 mmol/L (98-107); Estimated GFR-MDRD 41; Globulin 4.3 g/dL (2.4-3.5); Glucose 85 mg/dL (83-110); Potassium 3.7 mmol/L (3.5-5.1); Protein, Total 6.3 g/dL (6.0-8.3); Sodium 131 mmol/L (136-145)
[2018-01-31 19:06] LABS: Bilirubin Negative (Negative); Blood, Urine Large (Negative); Clarity TURBID (Clear); Glucose, Urine (Dipstick) Negative (Negative); Leukocyte Large (Negative); Nitrite Negative (Negative); Protein, Urine (Dipstick) 100 mg/dL (Neg-Trace); Specific Gravity, Urine 1.022 (1.002-1.036); Urobilinogen 0.2 mg/dL (0.2-1.0)
[2018-01-31 19:10] LABS: Pathc Cast-AUWi Flag 12.88 (0-2.49); Yeast-AUWi Flag 571.1 (0-25.0)
[2018-01-31 19:20] LABS: Bacteria/HPF 3+ HPF (None Seen); Hyaline Casts/LPF NONE SEEN LPF (0-3 Hyaline); Manual Microscopic Reviewed? No Path Casts Seen; Yeast-All Forms 3+ HPF (None Seen)
[2018-01-31] MEDS ORDERED: Ondansetron PF 4 MG/2 ML Vial IVP PRN (20:58)
[2018-01-31 22:05] VITALS: BMI 25.8
[2018-01-31] MEDS ORDERED: Vancomycin HCl 1 GM in Premix Bag 1 BAG IVPB SCH (22:15)
[2018-01-31] MEDS: MEROPENEM 1 GM/50 ML 1 GM in Premix Bag 1 BAG IVPB SCH (22:29)
[2018-02-01] MEDS: Acetaminophen 325 MG TAB PO PRN ×2 (02:35→08:18)
[2018-02-01] MEDS: Levothyroxine 150 MCG TAB PO SCH (05:06)
[2018-02-01] MEDS: MEROPENEM 1 GM/50 ML 1 GM in Premix Bag 1 BAG IVPB SCH ×3 (05:06→20:27)
[2018-02-01 06:44] LABS: Anion Gap 9 mmol/L (10-20); BUN (Urea Nitrogen) 18 mg/dL (9.8-20.1); Calc. Creatinine Clearance 48 mL/min (70-130); Calcium 7.6 mg/dL (7.8-10.44); Carbon Dioxide 23 mmol/L (23-31); Chloride 105 mmol/L (98-107); Estimated GFR-MDRD 48; Glucose 72 mg/dL (83-110); Potassium 3.7 mmol/L (3.5-5.1); Sodium 133 mmol/L (136-145)
[2018-02-01 06:53] LABS: #Basophils 0.1 thou/uL (0.0-0.2); #Eosinphils 0.1 thou/uL (0.0-0.7); #Monocytes 0.7 thou/uL (0.11-0.59); #Neutrophils 7.2 thou/uL (1.40-6.50); %Basophils 0.5 % (0.0-1.0); %Lymphocytes 19.4 % (21.0-51.0); %Monocytes 7.2 % (0.0-10.0); Hemoglobin 7.7 g/dL (12.0-16.0); Mean Corpuscular HGB CONC 31.9 g/dL (32.0-36.0); Mean Corpuscular Hemoglobin 31.4 pg (27.0-31.0); Mean Corpuscular Volume 98.5 fL (78.0-98.0); Mean Platelet Volume 7.6 fL (7.4-10.4); Platelet Count 196 thou/uL (130-400); Red Blood Cell (RBC) Count 2.45 mill/uL (4.20-5.40); White Blood Cell (WBC) Count 10.1 thou/uL (4.8-10.8)
[2018-02-01] MEDS: Saccharomyces boulardii 250 MG CAP PO SCH ×2 (08:18→20:27)
[2018-02-01] MEDS: Magnesium Oxide 400 MG TAB PO SCH (08:18)
[2018-02-01] MEDS: Ferrous Sulfate 325 MG TAB PO SCH ×3 (08:19→20:28)
[2018-02-01] MEDS: Senokot S 8.6-50 MG TAB PO SCH ×2 (08:19→20:27)
[2018-02-01] MEDS: Citalopram 20 MG TAB PO SCH (08:19)
[2018-02-01] MEDS: Furosemide 40 MG TAB PO SCH (08:19)
[2018-02-01] MEDS: Lisinopril 10 MG TAB PO SCH (08:19)
[2018-02-01 08:54] LABS: Magnesium 1.6 mg/dL (1.6-2.6); Phosphorus 2.2 mg/dL (2.3-4.7)
[2018-02-01] MEDS ORDERED: Multivit, Therapeutic 1 TAB PO SCH (09:00)
[2018-02-01] MEDS ORDERED: Clopidogrel Bisulfate 75 MG TAB PO SCH (09:00)
[2018-02-01] MEDS ORDERED: Amiodarone 200 MG TAB PO SCH (09:00)
[2018-02-01] MEDS ORDERED: NIFEdipine XL 30 MG TAB PO SCH (09:00)
[2018-02-01] MEDS ORDERED: Polyethylene Glycol 3350 17 GM Packet PO SCH (09:00)
[2018-02-01] MEDS ORDERED: Magnesium 2 GM/50 ML 2 GM in Premix Bag 1 BAG IVPB SCH (09:30)
[2018-02-01] MEDS: pyridOXINE 50 MG (B6) TAB PO SCH (10:51)
[2018-02-01] MEDS: Cyanocobalamin (Vitamin B-12) 1,000 MCG TAB PO SCH (10:52)
[2018-02-01] MEDS: Folic Acid 1 MG TAB PO SCH (10:52)
[2018-02-01] MEDS: K-Phos Neutral 250 MG TAB PO SCH ×2 (10:54→17:01)
[2018-02-01] MEDS: Phytonadione 10 MG/ML AMP PO SCH (10:54)
[2018-02-01] MEDS: Multivit, Therapeutic 1 TAB PO SCH (10:55)
[2018-02-01] MEDS: Amiodarone 200 MG TAB PO SCH (11:18)
[2018-02-01] MEDS: rOPINIRole HCl 0.25 MG TAB PO SCH ×3 (11:19→20:27)
--- NOTE | 2018-02-01 11:50 | RAD ---
ABDOMEN 1 VIEW: Date: 02/01/18 HISTORY: Abdomen pain. COMPARISON: 01/28/18. FINDINGS: Gas and stool over the colon. Small bowel gas pattern is nonspecific. Postoperative changes are prese nt. Radiopaque catheter over the bladder. Right hip prosthesis. Degenerative changes lumbar spine and left hip. Osseous structures are demineralized. IMPRESSION: 1. Nonspecific bowel gas pattern. 2. Postoperative changes of the abdomen and pelvis. 3. Osteoporosis. POS: [facility]
[2018-02-01 15:35] LABS: Hemoglobin 7.5 g/dL (12.0-16.0); Platelet Count 204 thou/uL (130-400)
[2018-02-01 15:40] LABS: INR-International Normal Ratio 2.3; Prothrombin Time 24.9 SEC (12.0-14.7)
--- NOTE | 2018-02-01 16:35 | HP ---
PRIMARY CARE PHYSICIAN: Jhon Chandler MD CHIEF COMPLAINT: Nausea and vomiting. HISTORY OF PRESENT ILLNESS: The patient is an 82-year-old female, who was discharged from this facility yesterday to [facility], presented to the emergency room with nausea, vomiting, and diarrhea. Please refer to the discharge summary dictated yesterday for further details. At the time of my interview, her symptoms have significantly improved. She has some nausea, vomiting, and diarrhea post discharge at the facility. She denies any abdominal pain. No fever, chills, chest pain, or palpitations reported. In the emergency room, her initial vital signs showed temperature 99 with respirations 22, pulse rate of 73, blood pressure 156/62 with O2 saturation 96% on room air. She received IV fluids in the emergency room. She was found to have a urinary tract infection with urinalysis showing greater than 50 wbc's with 3+ bacteria. PAST MEDICAL HISTORY: For history and physical dictated on 19 January 2018. PAST SURGICAL HISTORY: For history and physical dictated on 19 January 2018. ALLERGIES: FOR HISTORY AND PHYSICAL DICTATED ON December. SOCIAL HISTORY: For history and physical dictated on 19 January 2018. FAMILY HISTORY: For history and physical dictated on 19 January 2018. REVIEW OF SYSTEMS: All other review of systems was reviewed and were found negative. MEDICATIONS: Current home medications are same as discharge medications. PHYSICAL EXAMINATION: VITAL SIGNS: As discussed above. GENERAL: An 82-year-old female, in no apparent distress. HEENT: Head is atraumatic and normocephalic. Sclerae anicteric. Moist mucous membranes. No oral lesions. NECK: Supple. No JVD. No carotid bruit. LUNGS: Showed diminished air entry at bilateral bases. No wheezing or rales noted. ABDOMEN: Soft and nontender. Bowel sounds present. EXTREMITIES: No edema or calf tenderness. NEUROLOGY: Grossly nonfocal. Moves all four extremities. PSYCHIATRY: Alert, awake, and oriented x3. SKIN: Warm and dry. LYMPH: No palpable lymph nodes in the neck. PERIPHERAL/VASCULAR: Radial pulses are palpable bilaterally. MUSCULOSKELETAL: No joint swelling or tenderness. LABORATORY DATA: WBC 10.3 with hemoglobin 8.9. Her hemoglobin this morning was 7.7. Creatinine 1.25 with BUN 18, phosphorus 2.2, albumin 2.0. Urinalysis as discussed above. Blood cultures have been negative. Urine culture showed 25,000 to 50,000 mixed skin gulshan. KUB by my review was negative for small-bowel obstruction. Chest x-ray by my review was negative. IMPRESSION: 1. Nausea, vomiting, and diarrhea of unclear etiology, resolved. 2. Urinary tract infection. Please note that the patient had a recent Escherichia coli urinary tract infection that was treated with meropenem for 3 days per Infectious Disease recommendation. 3. Recent mitral valve endocarditis, secondary to methicillin-sensitive Staphylococcus, on Ancef. 4. Paroxysmal atrial fibrillation with recent rapid ventricular response. She is currently in sinus rhythm. 5. Chronic kidney disease, stage 3. 6. Aortic stenosis, status post recent transcatheter aortic valve replacement. 7. Coronary artery disease, status post stent placement. Currently, on aspirin and Plavix. 8. Anemia, rule out gastrointestinal bleed. 9. Right hip infection, status post removal of the hardware on January 25, 2018. 10. Diabetes mellitus type 2, diet controlled. 11. Mild intermittent asthma. 12. Diverticulosis. 13. Hypothyroidism. 14. Hyperlipidemia. 15. Degenerative joint disease. 16. Chronic anemia. 17. Moderate protein-calorie malnutrition. 18. Chronic right anterior shoulder dislocation. 19. Macular degeneration. PLAN: The patient will be monitored on the medical floor. Infectious Disease as well as Cardiology will be reconsulted. We will replace electrolytes. We will await cultures. We will repeat labs this afternoon. We will give her some vitamin K. The patient has coagulopathy with iron of 6.1 of unclear etiology. She also had PT and PTT elevated. Suspected vitamin K deficiency. She is not on anticoagulation. We will continue physical therapy and occupation therapy. All other home medications will be resumed. We will hold aspirin and Plavix for now. Plan of care was discussed with the patient and the family in detail. They stated understanding. CODE STATUS: Do not resuscitate. Surrogate decision maker is daughter. Job ID: [id number]
[2018-02-01 16:52] LABS: Iron 41 ug/dL (50-170); Iron Binding Capacity, Total 124 mcg/dL (265-497)
[2018-02-01] MEDS: Nystatin Powder 15 GM BOT TOP SCH (20:27)
[2018-02-01] MEDS: Pravastatin Sodium 40 MG TAB PO SCH (20:28)
--- NOTE | 2018-02-01 21:13 | CON ---
DATE OF CONSULTATION: 02/01/2018 REASON FOR CONSULTATION: Nausea and vomiting. HISTORY OF PRESENT ILLNESS: An 82-year-old, who recently was discharged from the hospital after a protracted stay for management of staphylococcal infection with bacteremia and right hip infection. The patient had a revision arthroplasty of the right infected hip, and she was discharged on IV cefazolin therapy with end date of therapy calculated March 08, and then transitioned to oral antimicrobial therapy. The patient has developed nausea, vomiting, and diarrhea apparently according to the long term staff. Right now, she denies that she had diarrhea. She also had a transesophageal echocardiogram, which demonstrated a vegetation in the anterior and posterior mitral valve leaflets, so establishing diagnosis of mitral valve endocarditis due to methicillin-susceptible Staphylococcus aureus. Currently, Ms. Sanchez is still feeling unwell, but has not vomited this morning yet. No headaches. No visual symptoms. No chest pain. No abdominal pain. Minimal pain in the right hip. A little bit of pain in the shoulders and back area. PAST MEDICAL HISTORY: Includes coronary artery disease with stent placed, TAVR, asthma, hypothyroidism, macular degeneration, diverticulosis, cervical cancer, venous stasis, hip arthroplasty with MSSA infection with revision just a few days ago. PAST SURGICAL HISTORY: Includes cholecystectomy, hysterectomy, appendectomy. ALLERGIES: NONE. SOCIAL HISTORY: She lives in [facility] with , now she is in rehab unit. Never-smoker. FAMILY HISTORY: Noncontributory. CURRENT MEDICATIONS: 1. Cordarone. 2. Celexa. 3. Feosol. 4. Folvite. 5. Lasix. 6. Synthroid. 7. Meropenem. 8. Theragran. 9. Procardia. 10. Requip. 11. Vancomycin. REVIEW OF SYSTEMS: CONSTITUTIONAL: She has been afebrile since admission. HEENT: Ocular movements are conjugate. Nasal passages are patent. Oral cavity is normal. LUNGS: Clear. CARDIAC: S1 and S2, regular rate. ABDOMEN: Soft, not distended or tender. No ascites. No bladder distention. She has a negative pressure dressing over the right hip incision. No erythema. No tenderness there. EXTREMITIES: She is able to move her toes and hands and feet. Pulses are 1+ in dorsalis pedis. NEUROLOGIC: Her cognitive function appears to be intact. PHYSICAL EXAMINATION: VITAL SIGNS: T-max 99. Other vital signs are not remarkable, it shows a little bit of tachypnea. SKIN: Shows the right hip negative pressure dressing. A little bit of redness in the presacral region, pressure area in the right heel about 1 cm in diameter, and a few pressure areas in the left side at the heel region as well. The patient is voiding with an indwelling Live catheter, and she has a PICC line in place. No lymphadenopathy. HEENT: Ocular movements are conjugate. Oral cavity is normal. NECK: Supple. LUNGS: Symmetric. Clear breath sounds. CARDIAC: S1 and S2, regular rate. ABDOMEN: With mild distention and cjfh-yn-ymxnwojf diffuse tenderness. Bowel sounds are increased with high-pitched bowel sounds noted. No organomegaly. No bladder distention. No ascites. EXTREMITIES: The patient has limitation of range of motion of joints due to chronic pain plus the acute illness resulting from the staphylococcal infection with endocarditis. She seems to be able to move all extremities. NEUROLOGIC: Cognitive function appears to be intact. LABORATORY DATA: White cell count 10.3 and 10.1, hemoglobin 8.9, MCV 98, platelets 220 with 75% neutrophils. INR was 6.1. Chemistry; creatinine 1.25 and now 1.10. The latest labs are sodium 133, creatinine 1.10. White cell count 10.1 with platelets 196, 72% neutrophils. Urinalysis is greater than 50 wbc's. Two sets of blood cultures pending, but thus far negative. IMAGING STUDIES: Abdominal x-ray with nonspecific bowel gas pattern, and a chest x-ray with no active intrathoracic disease. ASSESSMENT: Coronary artery disease with prior stent placement, recent transcatheter aortic valve replacement, asthma, hypothyroidism, and prior right hip arthroplasty infection, treated with resolution in 2014, and now right hip arthroplasty infection due to methicillin-susceptible Staphylococcus aureus secondary to mitral valve endocarditis, and now readmission with nausea, vomiting, and some diarrhea. DISCUSSION: Clinical findings are consistent with colitis. The possibility of C difficile colitis is high in the differential diagnosis. Recrudescence of bacteremia is another possibility, but less likely. Intolerance to the antimicrobials administered is another possibility. We will wait for the blood culture results , probably eventually transition her to Ancef again and try to keep her on that combination. If that is not feasible, then we may have to switch her to vancomycin alone. If C difficile is positive, then obviously we will need treatment for that, which will have to be continued for the full duration of the endocarditis treatment. If the C difficile is negative, then it could be just a drug adverse reaction. Job ID: [id number] [facility]
[2018-02-01] MEDS ORDERED: Vancomycin HCl 1 GM in Premix Bag 1 BAG IVPB SCH (22:00)
--- NOTE | 2018-02-02 01:47 | CON ---
DATE OF CONSULTATION: 02/01/2018 GI INPATIENT CONSULTATION NOTE Requesting physician is . REASON FOR CONSULTATION: Anemia. HISTORY OF PRESENT ILLNESS: Elysia Sanchez is an 82-year-old woman who has previous seen my GI colleague, Dr. Maninder Russo. She has a prior history of partial colectomy, I think for diverticulosis as well as a gastric lap band many years ago. Dr. Russo did some workup for iron deficiency anemia back in 1997 with examination demonstrating some chronic irritation at her colonic anastomosis. It looks her last colonoscopy was in 2002, which showed similar findings. She had some benign polyps. Over the past few months, she underwent TAVR down at [facility] in [place] for [id number] aortic stenosis. Her daughter tells me that even at that time she was found to be anemic in the hospital and received several units of blood transfusion. She also tells me that she underwent endoscopic investigation at that time. She is not sure if colonoscopy was performed, but that on EGD, they were told that there was an issue with her gastric lap-band causing erosions. I am not sure if this was eroding into the stomach or if it was causing Jabier erosions. At any rate, she says they were advised to see a surgeon, which they declined to do. The patient was more recently hospitalized here for a couple of weeks with fevers and was found to have Staphylococcus bacteremia and it appears mitral valve endocarditis. She was started on antibiotics. She was started on Plavix on hospital discharge, which was yesterday. The plan was to go to [place], but she was only there for a couple of hours before having some nausea and vomiting and being sent back. Her admission hemoglobin is 7.7 and this is a decline just from yesterday when it was 8.9. It appears her baseline hemoglobin is anywhere from 9.5 to 10. There has been no overt gastrointestinal bleeding noted by anybody. No coffee-ground emesis, melena or hematochezia. Interestingly, her lab showed coagulopathy with INR up to 6.1 and this corrected very well with vitamin K, now down to 2.3. Her Plavix is being held. In my long discussion with the patient and her daughter, they are not wanting to undergo any further aggressive investigations or interventions including any endoscopy to look into this anemia further. REVIEW OF SYSTEMS: Full review of systems including constitutional, head, eyes, ears, nose, throat, GI, , cardiovascular, respiratory, musculoskeletal, and neurologic systems are negative except as noted in the HPI. PAST MEDICAL HISTORY: 1. Staphylococcal bacteriemia. 2. 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 3. Atrial fibrillation with rapid ventricular response. 4. Aortic stenosis, status post recent aortic valve replacement. 5. Coronary artery disease, status post stent placement. 6. Right hip infection, status post removal in January 25. 7. Diabetes. 8. Diverticulosis. 9. Partial colectomy. 10. Hypothyroidism. 11. Hyperlipidemia. 12. History of cervical cancer. 13. Chronic anemia. 14. Macular degeneration. 15. Gastric lap-band many years ago. ALLERGIES: PENICILLIN. SOCIAL HISTORY: No smoking, alcohol, or drug abuse. She is a DNR status. FAMILY HISTORY: Noncontributory. MEDICATIONS: 1. Aspirin 81 mg daily. 2. Plavix 75 mg daily. 3. Ferrous sulfate 325 mg three times daily. 4. Levothyroxine. 5. Magnesium oxide 400 mg daily. 6. Pravastatin. 7. Requip. 8. Ancef 2 grams every 8 hours. 9. Tylenol. 10. Amiodarone 200 mg twice daily. 11. Celexa. 12. Lasix. 13. Lisinopril. 14. Multivitamin. 15. Procardia XL. 16. MiraLax daily. 17. Florastor twice daily. 18. Senokot-S twice daily. PHYSICAL EXAMINATION: VITAL SIGNS: Temperature 99.4, pulse 81, blood pressure 117/69, 96% oxygen saturation on room air. GENERAL: Elderly 82-year-old woman, lying in bed comfortably, in no acute distress. MENTAL STATUS: She is oriented to person, and place. She can answer questions about current symptoms appropriately. She does not give much history on her own. SKIN: No jaundice. No rashes were visible or palpable. EYES: No scleral icterus. Extraocular movements intact. ENT: Mucous membranes are moist. No oral lesions. LYMPH: No submandibular or supraclavicular lymphadenopathy. THYROID: Nontender to palpation. HEART: Regular rate and rhythm. LUNGS: Clear to auscultation bilaterally. ABDOMEN: Nondistended, bowel sounds present, soft, some tenderness to palpation in the left upper quadrant. No guarding, rebound or tenderness. EXTREMITIES: No peripheral edema. VESSELS: Radial pulses 2+ bilaterally. NEUROLOGIC: Cranial nerves 2 through 12 intact bilaterally. No focal deficits. LABORATORY STUDIES: Hemoglobin 7.5, hematocrit 22.4, WBC 10.1, platelets 204; INR was 6.1, now down to 2.3 after vitamin K administration. Sodium 133, potassium 3.7, BUN 18, creatinine is 1.10, iron 41, TIBC 124, total bilirubin 0.3, alkaline phosphatase 190, AST 27, ALT less than 7. CK is 18. IMAGING STUDIES: Abdominal x-ray shows nonspecific bowel gas pattern. ASSESSMENT AND PLAN: 1. Chronic iron deficiency anemia. 2. Coagulopathy, improved after vitamin K administration. 3. History of gastric lap band with complication, per my conversion with the patient's daughter. The patient does not have any evidence of brisk overt gastrointestinal bleeding, but her presentation is certainly consistent with chronic slow gastrointestinal blood loss. This has evidently already been worked at [facility] within the past couple of months, though it is a bit unclear to me what the nature of this complication of her gastric lap band is. Unsure if this might represent a Jabier erosion or more significantly erosion of the lap band into the mucosa of the stomach. Regardless, the patient and her daughter are not willing to consider any endoscopic investigation regarding the anemia. I think, given her comorbidities and then the presence of this recent coagulopathy, which is now being corrected, this is reasonable. We will not plan on any endoscopic investigation. We would recommend keeping her on acid suppression as well as iron supplementation. 4. GI will sign off, but please call anytime with questions or concerns. Job ID: [id number]
--- NOTE | 2018-02-02 02:03 | PRG ---
DATE OF SERVICE: SUBJECTIVE: Ms. Sanchez is readmitted to the hospital with abdominal discomfort and anemia. No chest pain or pressure. OBJECTIVE: VITAL SIGNS: Her blood pressure 117/69, pulse 80 and regular. LUNGS: Clear. CARDIAC: Normal S1. Normal S2. ABDOMEN: Soft and nontender. EXTREMITIES: Mild edema. ASSESSMENT: 1. Anemia, hemoglobin 7.5, presumably could be gastrointestinal blood loss versus some blood loss in the hip. 2. Previous transcutaneous aortic valve replacement. 3. Pulse remains normal. PLAN: 1. Agree with stopping Plavix. 2. Continue aspirin. 3. We will stop Procardia. 4. Continue lisinopril and furosemide. I will be out for next few days. My partners will be available if needed. Job ID: [id number]
[2018-02-02] MEDS: Acetaminophen 325 MG TAB PO PRN ×3 (04:05→23:24)
[2018-02-02 04:38] LABS: #Basophils 0.1 thou/uL (0.0-0.2); #Eosinphils 0.1 thou/uL (0.0-0.7); #Lymphocytes 1.8 thou/uL (1.20-3.40); #Monocytes 0.8 thou/uL (0.11-0.59); #Neutrophils 6.8 thou/uL (1.40-6.50); %Basophils 0.8 % (0.0-1.0); %Eosinophils 1.4 % (0.0-10.0); %Lymphocytes 18.7 % (21.0-51.0); %Monocytes 7.8 % (0.0-10.0); %Neutrophils 71.2 % (42.0-75.0); Hemoglobin 7.8 g/dL (12.0-16.0); Mean Corpuscular HGB CONC 33.9 g/dL (32.0-36.0); Mean Corpuscular Hemoglobin 33.5 pg (27.0-31.0); Mean Corpuscular Volume 98.7 fL (78.0-98.0); Mean Platelet Volume 7.4 fL (7.4-10.4); Platelet Count 211 thou/uL (130-400); RBC Distribution Width 16.3 % (11.5-14.5); Red Blood Cell (RBC) Count 2.34 mill/uL (4.20-5.40); White Blood Cell (WBC) Count 9.6 thou/uL (4.8-10.8)
[2018-02-02 04:56] LABS: INR-International Normal Ratio 1.3; Prothrombin Time 16.4 SEC (12.0-14.7)
[2018-02-02] MEDS: Levothyroxine 150 MCG TAB PO SCH (04:58)
[2018-02-02] MEDS: MEROPENEM 1 GM/50 ML 1 GM in Premix Bag 1 BAG IVPB SCH ×3 (04:58→22:32)
[2018-02-02 05:23] LABS: ALT (SGPT) Less than 7 U/L (8-55); AST (SGOT) 25 U/L (5-34); Albumin 1.9 g/dL (3.4-4.8); Alkaline Phosphatase 172 U/L (40-150); Anion Gap 11 mmol/L (10-20); BUN (Urea Nitrogen) 16 mg/dL (9.8-20.1); Bilirubin, Total 0.7 mg/dL (0.2-1.2); Calc. Creatinine Clearance 47 mL/min (70-130); Calcium 7.6 mg/dL (7.8-10.44); Carbon Dioxide 23 mmol/L (23-31); Chloride 104 mmol/L (98-107); Estimated GFR-MDRD 47; Globulin 4.3 g/dL (2.4-3.5); Glucose 85 mg/dL (83-110); Magnesium 2.5 mg/dL (1.6-2.6); Phosphorus 2.3 mg/dL (2.3-4.7); Potassium 3.5 mmol/L (3.5-5.1); Protein, Total 6.2 g/dL (6.0-8.3); Sodium 134 mmol/L (136-145)
[2018-02-02 06:04] LABS: Vitamin B12 Greater than 2000 pg/mL (211-911)
[2018-02-02] MEDS: Nystatin Powder 15 GM BOT TOP SCH ×2 (10:07→22:42)
[2018-02-02] MEDS: Multivit, Therapeutic 1 TAB PO SCH (10:08)
[2018-02-02] MEDS: Saccharomyces boulardii 250 MG CAP PO SCH ×2 (10:08→22:32)
[2018-02-02] MEDS: Phytonadione 10 MG/ML AMP PO SCH (10:08)
[2018-02-02] MEDS: rOPINIRole HCl 0.25 MG TAB PO SCH ×3 (10:08→22:32)
[2018-02-02] MEDS: Furosemide 40 MG TAB PO SCH (10:08)
[2018-02-02] MEDS: K-Phos Neutral 250 MG TAB PO SCH ×3 (10:08→17:58)
[2018-02-02] MEDS: pyridOXINE 50 MG (B6) TAB PO SCH (10:09)
[2018-02-02] MEDS: Aspirin 81 mg Enteric Coated Tablet PO SCH (10:09)
[2018-02-02] MEDS: Cyanocobalamin (Vitamin B-12) 1,000 MCG TAB PO SCH (10:09)
[2018-02-02] MEDS: Senokot S 8.6-50 MG TAB PO SCH ×2 (10:09→22:33)
[2018-02-02] MEDS: Lisinopril 10 MG TAB PO SCH (10:09)
[2018-02-02] MEDS: Folic Acid 1 MG TAB PO SCH (10:09)
[2018-02-02] MEDS: Magnesium Oxide 400 MG TAB PO SCH (10:09)
[2018-02-02] MEDS: Amiodarone 200 MG TAB PO SCH (10:10)
[2018-02-02] MEDS: Ferrous Sulfate 325 MG TAB PO SCH ×3 (10:10→22:33)
[2018-02-02] MEDS: Citalopram 20 MG TAB PO SCH (10:11)
--- NOTE | 2018-02-02 20:43 | PDOC.PN ---
- Subjective Encounter Start Date: 02/02/18 Encounter Start Time: 09:30 Patient seen and examined for Gen weakness/Anemia/N/V. Feels slightly better. No new complaints. No overnight events - Objective Resuscitation Status - Order Detail: 01/31/18 20:58 Resuscitation Status Routine Resuscitation Status: DNAR: NO Resuscitation Discussed with: patient, , daughter MAR Reviewed: Yes Vital Signs & Weight: Vital Signs (12 hours) Temp Pulse Resp BP Pulse Ox 02/02/18 20:00 98.6 F 73 20 145/66 H 97 02/02/18 15:00 98.1 F 77 16 128/69 98 02/02/18 12:00 98.2 F 80 16 144/69 H 97 Weight Admit Weight 169 lb 12.095 oz Weight 169 lb 12.095 oz I&O: 02/01/18 02/02/18 02/03/18 06:59 06:59 06:59 Intake Total 660 800 Output Total 280 800 Balance 380 0 Result Diagrams: 02/03/18 Unknown 02/03/18 Unknown Phys Exam - Physical Examination Constitutional: NAD Respiratory: no wheezing, no rhonchi Cardiovascular: RRR, no rub Gastrointestinal: soft, non-tender, positive bowel sounds Musculoskeletal: no edema Neurological: moves all 4 limbs Dx/Plan - Plan DVT proph w/SCDs 1. Nausea, vomiting, and diarrhea of unclear etiology, resolved. 2. Urinary tract infection. (patient had a recent Escherichia coli urinary tract infection that was treated with meropenem for 3 days per Infectious Disease recommendation) 3. Recent mitral valve endocarditis, secondary to methicillin-sensitive Staphylococcus, on Ancef. 4. Paroxysmal atrial fibrillation with recent rapid ventricular response - in sinus rhythm. 5. Coagulopathy - prob Vit K def - improving with Vit K 6. Aortic stenosis, status post recent transcatheter aortic valve replacement. 7. Coronary artery disease, status post stent placement. Currently, on aspirin and Plavix. 8. Anemia - multifactorial. FOBT - negative. Plavix dced. 9. Right hip infection, status post removal of the hardware on January 25, 2018. 10. Diabetes mellitus type 2, diet controlled. 11. Mild intermittent asthma. 12. Diverticulosis. 13. Hypothyroidism. 14. Hyperlipidemia. 15. Degenerative joint disease. 16. Chronic anemia. 17. Moderate protein-calorie malnutrition. 18. Chronic right anterior shoulder dislocation. 19. Macular degeneration. 20. Chronic kidney disease, stage 3. PLAN: Monitor HH Transfuse PRN Cont Meropenem Change to Ancef at or for Endocarditis Rx AM labs Cont other meds as below Plavix and Procardia XL dced Microbiology 02/02/18 23:35 Stool - Soft Stool Occult Blood (ERON) - Final 01/31/18 18:46 Urine estevez catheter Urine Culture - Final Presumptive Marisela albicans 01/31/18 18:47 Picc Line - Right Subclavian Vein Blood Culture - Preliminary NO GROWTH AT 48 HOURS 01/31/18 17:40 Venous blood - Right Arm Blood Culture - Preliminary NO GROWTH AT 48 HOURS Review of Systems - Review of Systems Respiratory: negative: Cough, Dry, Shortness of Breath, Hemoptysis, SOB with Excertion, Pleuritic Pain, Sputum, Wheezing Cardiovascular: negative: chest pain, palpitations, orthopnea, paroxysmal nocturnal dyspnea, edema, light headedness, other Gastrointestinal: negative: Nausea, Vomiting, Abdominal Pain, Diarrhea, Constipation, Melena, Hematochezia, Other - Medications/Allergies Allergies/Adverse Reactions: Allergies Allergy/AdvReac Type Severity Reaction Status Date / Time Penicillins Allergy Verified 01/19/18 20:43 Medications: Current Medications Acetaminophen (Tylenol) 650 mg PO Q4H PRN PRN Reason: Headache/Fever or Mild Pain Last Admin: 02/02/18 11:01 Dose: 650 mg Amiodarone HCl (Cordarone) 200 mg PO DAILY [facility] Last Admin: 02/02/18 10:10 Dose: 200 mg Aspirin (Ecotrin) 81 mg PO DAILY [facility] Last Admin: 02/02/18 10:09 Dose: 81 mg Citalopram Hydrobromide (Celexa) 20 mg PO DAILY [facility] Last Admin: 02/02/18 10:11 Dose: 20 mg Cyanocobalamin (Vitamin B-12) 1,000 mcg PO DAILY [facility] Last Admin: 02/02/18 10:09 Dose: 1,000 mcg Ferrous Sulfate (Feosol) 325 mg PO TID [facility] Last Admin: 02/02/18 14:30 Dose: 325 mg Folic Acid (Folvite) 1 mg PO DAILY [facility] Last Admin: 02/02/18 10:09 Dose: 1 mg Furosemide (Lasix) 40 mg PO DAILY [facility] Last Admin: 02/02/18 10:08 Dose: 40 mg Meropenem 1 gm/ Device 50 mls @ 200 mls/hr IVPB Q8HR [facility] Last Admin: 02/02/18 14:30 Dose: 50 mls Vancomycin HCl 1 gm/ Device 200 mls @ 200 mls/hr IVPB 2200 [facility] Last Admin: 02/01/18 20:27 Dose: 200 mls Levothyroxine Sodium (Synthroid) 150 mcg PO 0600 [facility] Last Admin: 02/02/18 04:58 Dose: 150 mcg Lisinopril (Zestril) 10 mg PO DAILY [facility] Last Admin: 02/02/18 10:09 Dose: 10 mg Magnesium Oxide (Magnesium Oxide) 400 mg PO DAILY [facility] Last Admin: 02/02/18 10:09 Dose: 400 mg Multivitamins (Theragran) 1 tab PO DAILY [facility] Last Admin: 02/02/18 10:08 Dose: 1 tab Nystatin (Mycostatin Powder) 0 gm TOP BID [facility] Last Admin: 02/02/18 10:07 Dose: 1 pk Ondansetron HCl (Zofran) 4 mg IVP Q6H PRN PRN Reason: Nausea/Vomiting Last Admin: 02/01/18 05:06 Dose: 4 mg Phosphorus (Kphos Neutral) 250 mg PO TID[facility] Last Admin: 02/02/18 17:58 Dose: 250 mg Phytonadione (Aquamephyton) 10 mg PO DAILY [facility] Last Admin: 02/02/18 10:08 Dose: 10 mg Pravastatin Sodium (Pravachol) 40 mg PO HS [facility] Last Admin: 02/01/18 20:28 Dose: 40 mg Pyridoxine HCl (Vitamin B 6) 50 mg PO DAILY [facility] Last Admin: 02/02/18 10:09 Dose: 50 mg Ropinirole HCl (Requip) 0.25 mg PO TID [facility] Last Admin: 02/02/18 14:30 Dose: 0.25 mg Saccharomyces Boulardii (Florastor) 250 mg PO BID [facility] Last Admin: 02/02/18 10:08 Dose: 250 mg Senna/Docusate Sodium (Senokot S) 1 tab PO BID [facility] Last Admin: 02/02/18 10:09 Dose: 1 tab
[2018-02-02 21:29] LABS: Vancomycin, Trough 20.6 ug/mL
[2018-02-02] MEDS: Pravastatin Sodium 40 MG TAB PO SCH (22:32)
[2018-02-02] MEDS: Vancomycin HCl 750 MG in Sodium Chloride 0.9% 250 ML 250 ML IVPB SCH (23:16)
[2018-02-03] MEDS: Levothyroxine 150 MCG TAB PO SCH (06:06)
[2018-02-03] MEDS: MEROPENEM 1 GM/50 ML 1 GM in Premix Bag 1 BAG IVPB SCH ×3 (06:07→21:15)
[2018-02-03 06:51] LABS: #Basophils 0.1 thou/uL (0.0-0.2); #Eosinphils 0.1 thou/uL (0.0-0.7); #Lymphocytes 1.8 thou/uL (1.20-3.40); #Monocytes 0.5 thou/uL (0.11-0.59); #Neutrophils 5.1 thou/uL (1.40-6.50); %Basophils 0.9 % (0.0-1.0); %Eosinophils 1.6 % (0.0-10.0); %Lymphocytes 23.9 % (21.0-51.0); %Monocytes 6.7 % (0.0-10.0); %Neutrophils 66.8 % (42.0-75.0); Hemoglobin 6.9 g/dL (12.0-16.0); Mean Corpuscular HGB CONC 33.7 g/dL (32.0-36.0); Mean Corpuscular Hemoglobin 33.5 pg (27.0-31.0); Mean Corpuscular Volume 99.4 fL (78.0-98.0); Mean Platelet Volume 7.2 fL (7.4-10.4); Platelet Count 196 thou/uL (130-400); RBC Distribution Width 16.5 % (11.5-14.5); Red Blood Cell (RBC) Count 2.07 mill/uL (4.20-5.40); White Blood Cell (WBC) Count 7.6 thou/uL (4.8-10.8)
[2018-02-03 07:14] LABS: Anion Gap 8 mmol/L (10-20); BUN (Urea Nitrogen) 14 mg/dL (9.8-20.1); Calc. Creatinine Clearance 55 mL/min (70-130); Calcium 7.5 mg/dL (7.8-10.44); Carbon Dioxide 27 mmol/L (23-31); Chloride 103 mmol/L (98-107); Estimated GFR-MDRD 56; Glucose 81 mg/dL (83-110); Potassium 3.1 mmol/L (3.5-5.1); Sodium 135 mmol/L (136-145)
[2018-02-03] MEDS: pyridOXINE 50 MG (B6) TAB PO SCH (09:08)
[2018-02-03] MEDS: Saccharomyces boulardii 250 MG CAP PO SCH ×2 (09:08→21:14)
[2018-02-03] MEDS: Nystatin Powder 15 GM BOT TOP SCH ×2 (09:08→21:14)
[2018-02-03] MEDS: Furosemide 40 MG TAB PO SCH (09:08)
[2018-02-03] MEDS: Ferrous Sulfate 325 MG TAB PO SCH ×3 (09:09→21:15)
[2018-02-03] MEDS: K-Phos Neutral 250 MG TAB PO SCH ×3 (09:09→17:24)
[2018-02-03] MEDS: rOPINIRole HCl 0.25 MG TAB PO SCH ×3 (09:09→21:14)
[2018-02-03] MEDS: Lisinopril 10 MG TAB PO SCH (09:09)
[2018-02-03] MEDS: Citalopram 20 MG TAB PO SCH (09:09)
[2018-02-03] MEDS: Folic Acid 1 MG TAB PO SCH (09:09)
[2018-02-03] MEDS: Magnesium Oxide 400 MG TAB PO SCH (09:09)
[2018-02-03] MEDS: Multivit, Therapeutic 1 TAB PO SCH (09:09)
[2018-02-03] MEDS: Cyanocobalamin (Vitamin B-12) 1,000 MCG TAB PO SCH (09:09)
[2018-02-03] MEDS: Aspirin 81 mg Enteric Coated Tablet PO SCH (09:09)
[2018-02-03] MEDS: Amiodarone 200 MG TAB PO SCH (09:09)
[2018-02-03] MEDS: Senokot S 8.6-50 MG TAB PO SCH ×2 (09:14→21:08)
[2018-02-03] MEDS: Phytonadione 10 MG/ML AMP PO SCH (11:07)
[2018-02-03] MEDS: Acetaminophen 325 MG TAB PO PRN ×2 (14:11→21:13)
[2018-02-03] MEDS: Pravastatin Sodium 40 MG TAB PO SCH (21:14)
[2018-02-03] MEDS: Vancomycin HCl 750 MG in Sodium Chloride 0.9% 250 ML 250 ML IVPB SCH (22:01)
--- NOTE | 2018-02-03 22:32 | PDOC.PN ---
- Subjective Encounter Start Date: 02/03/18 Encounter Start Time: 08:30 Patient seen and examined for N/V/Anemia. No new complaints. No overnight events - Objective Resuscitation Status - Order Detail: 01/31/18 20:58 Resuscitation Status Routine Resuscitation Status: DNAR: NO Resuscitation Discussed with: patient, , daughter MAR Reviewed: Yes Vital Signs & Weight: Vital Signs (12 hours) Temp Pulse Resp BP Pulse Ox 02/03/18 15:38 98.8 F 76 14 137/74 96 02/03/18 14:09 99.6 F 18 97 02/03/18 11:16 99.9 F H 18 96 02/03/18 10:56 100.1 F H 18 96 Weight Admit Weight 169 lb 12.095 oz Weight 169 lb 12.095 oz Most Recent Monitor Data Heart Rate from ECG 78 NIBP 143/74 I&O: 02/02/18 02/03/18 02/04/18 06:59 06:59 06:59 Intake Total 800 1200 Output Total 800 1700 Balance 0 -500 Result Diagrams: 02/03/18 Unknown 02/03/18 Unknown Phys Exam - Physical Examination Constitutional: NAD Respiratory: no wheezing, no rhonchi Cardiovascular: RRR, no rub Gastrointestinal: soft, non-tender, positive bowel sounds Musculoskeletal: no edema Neurological: moves all 4 limbs Dx/Plan - Plan DVT proph w/SCDs 1. Nausea, vomiting, and diarrhea of unclear etiology, resolved. 2. Urinary tract infection. (patient had a recent Escherichia coli urinary tract infection that was treated with meropenem for 3 days per Infectious Disease recommendation) 3. Recent mitral valve endocarditis, secondary to methicillin-sensitive Staphylococcus, on Ancef. 4. Paroxysmal atrial fibrillation with recent rapid ventricular response - in sinus rhythm. 5. Coagulopathy - prob Vit K def - improving with Vit K 6. Aortic stenosis, status post recent transcatheter aortic valve replacement. 7. Coronary artery disease, status post stent placement. Currently, on aspirin and Plavix. 8. Anemia - multifactorial. FOBT - negative. Plavix dced. 9. Right hip infection, status post removal of the hardware on January 25, 2018. 10. Diabetes mellitus type 2, diet controlled. 11. Mild intermittent asthma. 12. Diverticulosis. 13. Hypothyroidism. 14. Hyperlipidemia. 15. Degenerative joint disease. 16. Chronic anemia. 17. Moderate protein-calorie malnutrition. 18. Chronic right anterior shoulder dislocation. 19. Macular degeneration. 20. Chronic kidney disease, stage 3. PLAN: Stool for occult blood neg Transfuse 1 unit PRBC Cont Meropenem - Change to Ancef for Endocarditis if urine cultures are neg Cdiff assay pending AM labs Cont other meds as below Plavix and Procardia XL dced Review of Systems - Review of Systems Respiratory: negative: Cough, Dry, Shortness of Breath, Hemoptysis, SOB with Excertion, Pleuritic Pain, Sputum, Wheezing Cardiovascular: negative: chest pain, palpitations, orthopnea, paroxysmal nocturnal dyspnea, edema, light headedness, other - Medications/Allergies Allergies/Adverse Reactions: Allergies Allergy/AdvReac Type Severity Reaction Status Date / Time Penicillins Allergy Verified 01/19/18 20:43 Medications: Current Medications Acetaminophen (Tylenol) 650 mg PO Q4H PRN PRN Reason: Headache/Fever or Mild Pain Last Admin: 02/03/18 21:13 Dose: 650 mg Amiodarone HCl (Cordarone) 200 mg PO DAILY [facility] Last Admin: 02/03/18 09:09 Dose: 200 mg Aspirin (Ecotrin) 81 mg PO DAILY [facility] Last Admin: 02/03/18 09:09 Dose: 81 mg Citalopram Hydrobromide (Celexa) 20 mg PO DAILY [facility] Last Admin: 02/03/18 09:09 Dose: 20 mg Cyanocobalamin (Vitamin B-12) 1,000 mcg PO DAILY [facility] Last Admin: 02/03/18 09:09 Dose: 1,000 mcg Ferrous Sulfate (Feosol) 325 mg PO TID [facility] Last Admin: 02/03/18 21:15 Dose: 325 mg Folic Acid (Folvite) 1 mg PO DAILY [facility] Last Admin: 02/03/18 09:09 Dose: 1 mg Furosemide (Lasix) 40 mg PO DAILY [facility] Last Admin: 02/03/18 09:08 Dose: 40 mg Meropenem 1 gm/ Device 50 mls @ 200 mls/hr IVPB Q8HR [facility] Last Admin: 02/03/18 21:15 Dose: 50 mls Vancomycin HCl 750 mg/ Sodium (Chloride) 250 mls @ 250 mls/hr IVPB 2200 [facility] Last Admin: 02/03/18 22:01 Dose: 250 mls Levothyroxine Sodium (Synthroid) 150 mcg PO 0600 [facility] Last Admin: 02/03/18 06:06 Dose: 150 mcg Lisinopril (Zestril) 10 mg PO DAILY [facility] Last Admin: 02/03/18 09:09 Dose: 10 mg Magnesium Oxide (Magnesium Oxide) 400 mg PO DAILY [facility] Last Admin: 02/03/18 09:09 Dose: 400 mg Multivitamins (Theragran) 1 tab PO DAILY [facility] Last Admin: 02/03/18 09:09 Dose: 1 tab Nystatin (Mycostatin Powder) 0 gm TOP BID [facility] Last Admin: 02/03/18 21:14 Dose: 1 applic Ondansetron HCl (Zofran) 4 mg IVP Q6H PRN PRN Reason: Nausea/Vomiting Last Admin: 02/01/18 05:06 Dose: 4 mg Phosphorus (Kphos Neutral) 250 mg PO TID[facility] Last Admin: 02/03/18 17:24 Dose: 250 mg Phytonadione (Aquamephyton) 10 mg PO DAILY [facility] Last Admin: 02/03/18 11:07 Dose: 10 mg Pravastatin Sodium (Pravachol) 40 mg PO HS [facility] Last Admin: 02/03/18 21:14 Dose: 40 mg Pyridoxine HCl (Vitamin B 6) 50 mg PO DAILY [facility] Last Admin: 02/03/18 09:08 Dose: 50 mg Ropinirole HCl (Requip) 0.25 mg PO TID [facility] Last Admin: 02/03/18 21:14 Dose: 0.25 mg Saccharomyces Boulardii (Florastor) 250 mg PO BID [facility] Last Admin: 02/03/18 21:14 Dose: 250 mg Senna/Docusate Sodium (Senokot S) 1 tab PO BID [facility] Last Admin: 02/03/18 21:08 Dose: Not Given Sodium Chloride (Flush - Normal Saline) 10 ml IVF PRN PRN PRN Reason: Saline Flush
[2018-02-04] MEDS ORDERED: Benzonatate 100 MG CAP PO PRN (01:50)
[2018-02-04] MEDS: Acetaminophen 325 MG TAB PO PRN (02:45)
[2018-02-04 05:38] LABS: Anion Gap 8 mmol/L (10-20); BUN (Urea Nitrogen) 12 mg/dL (9.8-20.1); Calc. Creatinine Clearance 55 mL/min (70-130); Calcium 7.8 mg/dL (7.8-10.44); Carbon Dioxide 29 mmol/L (23-31); Chloride 102 mmol/L (98-107); Estimated GFR-MDRD 56; Glucose 90 mg/dL (83-110); Sodium 136 mmol/L (136-145)
[2018-02-04 05:44] LABS: #Eosinphils 0.1 thou/uL (0.0-0.7); #Lymphocytes 1.8 thou/uL (1.20-3.40); #Monocytes 0.6 thou/uL (0.11-0.59); #Neutrophils 5.1 thou/uL (1.40-6.50); %Basophils 0.4 % (0.0-1.0); %Eosinophils 1.9 % (0.0-10.0); %Lymphocytes 23.2 % (21.0-51.0); %Monocytes 7.7 % (0.0-10.0); %Neutrophils 66.8 % (42.0-75.0); Hemoglobin 9.3 g/dL (12.0-16.0); Mean Corpuscular HGB CONC 34.1 g/dL (32.0-36.0); Mean Corpuscular Hemoglobin 32.3 pg (27.0-31.0); Mean Corpuscular Volume 94.8 fL (78.0-98.0); Mean Platelet Volume 6.8 fL (7.4-10.4); Platelet Count 202 thou/uL (130-400); RBC Distribution Width 16.6 % (11.5-14.5); Red Blood Cell (RBC) Count 2.89 mill/uL (4.20-5.40); White Blood Cell (WBC) Count 7.6 thou/uL (4.8-10.8)
[2018-02-04] MEDS: Levothyroxine 150 MCG TAB PO SCH (06:46)
[2018-02-04] MEDS: MEROPENEM 1 GM/50 ML 1 GM in Premix Bag 1 BAG IVPB SCH (06:46)
[2018-02-04 07:45] VITALS: BP 168/78; TEMP 98.8
--- NOTE | 2018-02-04 21:31 | DIS ---
DATE OF ADMISSION: 01/31/2018 DATE OF DISCHARGE: 02/04/2018 SUMMARY: DATE OF : 02/04/2018. ADMISSION DIAGNOSES: 1. Nausea, vomiting, and diarrhea of unclear etiology, resolved. 2. Urinary tract infection. 3. Recent mitral valve endocarditis secondary to methicillin-sensitive Staphylococcus aureus, on Ancef. 4. Paroxysmal atrial fibrillation with recent rapid ventricular response, currently in sinus rhythm. 5. Chronic kidney disease, stage 3. 6. Aortic stenosis, status post recent transcatheter aortic valve replacement. 7. Coronary artery disease, status post stent placement. 8. Anemia. 9. Right hip infection, status post removal of the hardware on January 25, 2018. 10. Diabetes mellitus, type 2, diet controlled. 11. Mild intermittent asthma. 12. Diverticulosis. 13. Hypothyroidism. 14. Hyperlipidemia. 15. Degenerative joint disease. 16. Moderate protein-calorie malnutrition. 17. Chronic right anterior shoulder dislocation. 18. Macular degeneration. FINAL DIAGNOSES: 1. Mitral valve endocarditis. 2. Aortic stenosis, status post recent transcatheter aortic valve replacement. 3. Coagulopathy. 4. Paroxysmal atrial fibrillation with recent rapid ventricular response. 5. Urinary tract infection. 6. Coronary artery disease, status post stent placement. 7. Anemia, multifactorial with FOBT negative. 8. Right hip infection, status post removal of the hardware on January 25, 2018. 9. Diabetes mellitus, type 2, diet controlled. 10. Mild intermittent asthma. 11. Diverticulosis. 12. Hypothyroidism. 13. Hyperlipidemia. 14. Degenerative joint disease. 15. Chronic anemia. 16. Moderate protein-calorie malnutrition. 17. Chronic right anterior shoulder dislocation. 18. Macular degeneration. 19. Chronic kidney disease, stage 3. CONSULTANTS: 1. Dr. Sari Russell, Cardiology Service. 2. Dr. Salbador Krause, Infectious Diseases Service. HOSPITAL COURSE: The patient was an 82-year-old female, who was discharged from [facility] on the and she went to [facility], who was sent back to the emergency room after she started having some nausea, vomiting, and diarrhea. She denied any abdominal pain. No fever. No chills. No chest pain or palpitations. Her temperature in the emergency room was 99 with respirations 22 and blood pressure 156/62 with pulse rate of 73. She received IV fluids. She was found to have urinary tract infection, got admitted to the hospital for further management. A KUB was negative for small bowel obstruction. X-ray was negative for any acute cardiopulmonary changes. Infectious Diseases and Cardiology were consulted. Her electrolytes were replaced. Her Plavix and aspirin were stopped. Because of anemia, guaiac was checked and it came back negative. Cardiology agreed with the plan and the Plavix was stopped. Also, he recommended to stop Procardia and continue lisinopril and furosemide. Her hemoglobin went down to 7.5. Guaiac came back negative. Her Clostridium difficile toxin and antigen were positive for antigen. She grew presumptive Marisela albicans in her urine and the blood cultures, bacterial, came back negative. The patient was transfused with 1 unit of packed red blood cells. She was on meropenem and the plan was to change her to Ancef once the urine cultures are negative and today, I got the call from the nurse that the patient suddenly and she was DNR and she was pronounced at 0740 hours in the morning, so I did not even have a chance to see her this morning. Job ID: [id number]
== END 2018-02-04 11:26 | disposition expired | DRG 690 ==
LOC: ERS 16:51 → SURG B 19:00
PROVIDERS: ADMIT Hospitalist; ATTEND Hospitalist
DX: N39.0 Urinary tract infection, site not specified (principal); E44.0 Moderate protein-calorie malnutrition; D68.9 Coagulation defect, unspecified; A04.72 Enterocolitis due to Clostridium difficile, not specified as recurrent; I05.9 Rheumatic mitral valve disease, unspecified; I48.0 Paroxysmal atrial fibrillation; I12.9 Hypertensive chronic kidney disease with stage 1 through stage 4 chronic kidney disease, or unspecified chronic kidney disease; E11.22 Type 2 diabetes mellitus with diabetic chronic kidney disease; N18.3 Chronic kidney disease, stage 3 (moderate); I35.0 Nonrheumatic aortic (valve) stenosis; I25.10 Atherosclerotic heart disease of native coronary artery without angina pectoris; J45.20 Mild intermittent asthma, uncomplicated; K57.90 Diverticulosis of intestine, part unspecified, without perforation or abscess without bleeding; E78.5 Hyperlipidemia, unspecified; Z68.25 Body mass index [BMI] 25.0-25.9, adult; M24.411 Recurrent dislocation, right shoulder; H35.30 Unspecified macular degeneration; D63.1 Anemia in chronic kidney disease; B96.89 Other specified bacterial agents as the cause of diseases classified elsewhere
CPT/HCPCS: 36415; 36430; 51702; 71045; 74018; 80048; 80053; 80202; 81003; 81015; 82274; 82550; 82607; 82728; 82746; 83540; 83550; 83605; 83735; 84100; 85025; 85610; 85730; 86850; 86900; 86901; 87040; 87086; 87324; 87449; 87493; 96360; G8978-GP-CN; G8979-GP-CL; G8987-GO-CM; G8988-GO-CL; J2185; J2405; J3370; J3430; J7050; P9016